=== PATIENT | female | born 1950 | race Caucasian/White ===

== ENCOUNTER → 2017-12-08 | Outpatient (CLI) | payer MEDICARE ==
--- NOTE | 2017-12-09 08:57 | MM ---
Reason for exam: screening (asymptomatic). Last mammogram was performed 1 year and 5 months ago. History: Patient is postmenopausal and is nulliparous. Physical Findings: A clinical breast exam by your physician is recommended on an annual basis and results should be correlated with mammographic findings. MG 3D Screening Mammo W/Cad Bilateral CC and MLO view(s) were taken. Prior study comparison: July 12, 2016, mammogram, performed at [facility]. June 12, 2015, mammogram, performed at [facility]. The breast tissue is heterogeneously dense. This may lower the sensitivity of mammography. There is no discrete abnormality. No significant changes when compared with prior studies. ASSESSMENT: Negative, BI-RAD 1 RECOMMENDATION: Routine screening mammogram of both breasts in 1 year.
== END | disposition home or self-care (01) ==
LOC: RADMAMWWP 07:54
PROVIDERS: ATTEND Family Medicine
DX: Z12.31 Encounter for screening mammogram for malignant neoplasm of breast (principal)
CPT/HCPCS: 77063; 77067

== ENCOUNTER → 2017-12-30 | Outpatient (CLI) | payer MEDICARE ==
--- NOTE | 2017-12-30 22:54 | CONS ---
CONSULTATION This is a 67-year-old female patient, very pleasant, diagnosed having obstructive sleep apnea more than 20 years ago. Her diagnosis was established at [facility] where the patient was initially diagnosed and she was treated. She was able to bring to me studies, which I had the chance to review. The first split night study was done on 11/07/2010 at [facility] in [place], [place]. Based on this study, the patient had severe symptomatic obstructive sleep apnea and her baseline AHI was as high as 75. Subsequently, she was given CPAP therapy and she was titrated successfully to a CPAP pressure of 10 cm of water. Note that her initial diagnosis was established back then, specifically in 2002. The patient uses CPAP for quite some time and subsequently she had a followup CPAP titration performed on 12/06/2010 through the same sleep center and she was titrated to a CPAP pressure of 9 cm of water. On today's evaluation, I checked her CPAP unit and the patient has an older generation [employer] REMstar auto PAP unit, which is set at a minimum pressure of 8 and a maximum pressure of 12. The patient is very compliant with CPAP therapy. She wears at night and she has continued to benefit from the treatment. In fact, she has no complaints and she is in to make sure her treatment is up-to-date and she is asking for CPAP supplies and to be renewed. I checked a CPAP machine. She is averaging around 4 hours and 36 minutes of CPAP use every night. Her CPAP used for more than 4 hours is 66%. No periodic breathing. No leaks around the mask. Her P90 pressure is at 11 cm of water and she is using the Air Fit P10 small size nose mask. Her weight has been stable. She is alert and awake and refreshed during the day. She has an [place] score of 7. She wants to establish herself with us at our sleep center. Asymptomatic as long as she continues to wear her CPAP. PAST MEDICAL HISTORY: 1. Obstructive sleep apnea as discussed above. 2. Hypothyroidism. 3. Hypertension. 4. Hyperlipidemia. PAST SURGICAL HISTORY: Includes total hysterectomy, bilateral cataract surgery, acid reflux, cholecystectomy, bladder suspension surgery, gastric bypass surgery following which she lost approximately 150 pounds and she regained subsequently around 50 pounds and degenerative arthritis. DRUG ALLERGIES: TETRACYCLINE. OUTPATIENT MEDICATION LIST: Includes vitamin D, lisinopril 10 mg p.o. daily, Synthroid 112 mcg p.o. daily, Lipitor 10 mg p.o. daily, omeprazole 20 daily, potassium 20 mEq a day, vitamin C, iron, multivitamin, aspirin and CPAP machine as discussed. SOCIAL HISTORY: The patient is a nonsmoker. No history of alcohol. No history of IV drugs. FAMILY HISTORY: Noncontributory for any form of sleep breathing disorder. REVIEW OF SYSTEMS: A 12-point review of system was done and positive findings are mentioned above in the history of present illness. Specifically, there is no reported insomnia. No nocturia. No grinding of the teeth. No sleepwalking. No dry mouth. No anxiety or panic attacks. No heartburn. No sleep talking. No sleep paralysis. No hallucinations. No cataplexy. PHYSICAL EXAMINATION: BP is 140/65, pulse 76, respirations 16, temp 98.0, saturation 95% on room air. Weight is 255, height is 5 feet 1 inch and neck size 14.5 inches. GENERAL APPEARANCE: Calm, comfortable and in no acute distress. HEAD: Atraumatic, normocephalic. NECK: Short, supple. There is crowding of the posterior pharynx. There is no goiter or neck masses. LUNGS: Clear to auscultation. HEART: Sounds are regular rate and rhythm. Normal S1, S2. No S3. No murmurs. ABDOMEN: Soft, nontender. No organomegaly. EXTREMITIES: No edema. No cyanosis or clubbing at this point. Skin is negative for any wounds or ulceration. IMPRESSION: 1. Severe symptomatic obstructive sleep apnea with an AHI of 60. The patient underwent a successful CPAP titration and treatment over the years. She is currently using a [employer] RespirSplothers CPAP unit, which is set at an APAP mode with a minimum pressure of 8 and a maximum pressure of 12. The patient continued to treat and benefit and be compliant with her CPAP machine. 2. Obesity, post gastric bypass surgery. Current weight is down to 255. 3. Hypersomnia, improved. 4. Hypothyroidism. 5. Hypertension. PLAN: 1. Continue same CPAP pressure settings. 2. Renew the patient's CPAP supply and provides patient Air Fit P10 small size nasal pillows. 3. Continue using the same CPAP machine and ultimately the patient may need an updated machine in a few weeks time. For now the treatment is successful and no need for any adjustment from the sleep standpoint, and the patient will be established herself in our clinic here at the sleep center. MMRUBÉN / CRISTOFERN: [id number] /
== END | disposition home or self-care (01) ==
LOC: SLEEP 13:58
PROVIDERS: ATTEND Internal Medicine Critical Care Medicine
DX: G47.33 Obstructive sleep apnea (adult) (pediatric) (principal); E66.9 Obesity, unspecified; G47.10 Hypersomnia, unspecified; E03.9 Hypothyroidism, unspecified; I10 Essential (primary) hypertension; E78.5 Hyperlipidemia, unspecified; Z88.1 Allergy status to other antibiotic agents; Z98.84 Bariatric surgery status; Z79.899 Other long term (current) drug therapy; Z79.82 Long term (current) use of aspirin
CPT/HCPCS: 99211

== ENCOUNTER 2018-01-07 08:20 | Day surgery (SDC) | payer MEDICARE ==
[2018-01-02 16:18] VITALS: BMI 48.2
--- NOTE | 2018-01-07 07:08 | P.GSHP ---
History of Present Illness H&P Date: 01/07/18 CHIEF COMPLAINT: Colon screen HISTORY OF PRESENT ILLNESS: The patient is a 67-year-old female who presents for colon screen. Lower endoscopy was offered for further evaluation and management. PAST MEDICAL HISTORY: Please see list. PAST SURGICAL HISTORY: Please see list. MEDICATIONS: Please see list. ALLERGIES: Please see list. SOCIAL HISTORY: No illicit drug use FAMILY HISTORY: No reports of Crohn disease or ulcerative colitis. REVIEW OF ORGAN SYSTEMS: CONSTITUTIONAL: No reports of fevers or chills. PHYSICAL EXAM: VITAL SIGNS: Stable GENERAL: Well-developed pleasant in no acute distress. HEENT: No scleral icterus. Extraocular movements grossly intact. Moist buccal mucosa. NECK: Supple without lymphadenopathy. CHEST: Unlabored respirations. Equal bilateral excursions. CARDIOVASCULAR: Regular rate and rhythm. Distal 2+ pulses. ABDOMEN: Soft, nontender, nondistended. MUSCULOSKELETAL: No clubbing, cyanosis, or edema. ASSESSMENT: 1. Colon screen. PLAN: 1. Recommend proceeding with a lower endoscopy Past Medical History Past Medical History: CVA/TIA, GERD/Reflux, Hypertension, Sleep Apnea/CPAP/BIPAP Additional Past Medical History / Comment(s): MITRAL VALVE PROLAPSE, MINOR. TIA 1974, NO RESIDUAL. USES CPAP. History of Any Multi-Drug Resistant Organisms: None Reported Past Surgical History: Bariatric Surgery, Bladder Surgery, Cholecystectomy, Hysterectomy Additional Past Surgical History / Comment(s): GASTRIC BYPASS. SVEN CATARACTS. COLONOSCOPY, EGD. Past Anesthesia/Blood Transfusion Reactions: No Reported Reaction Smoking Status: Never smoker - Past Family History Sister(s) Family Medical History: Cancer Additional Family Medical History / Comment(s): COLON CA Mother Family Medical History: Cancer Medications and Allergies Home Medications Medication Instructions Recorded Confirmed Type Ascorbic Acid [Vitamin C] 1,000 mg PO HS 01/02/18 01/02/18 History Aspirin [Adult Low Dose Aspirin EC] 81 mg PO DAILY 01/02/18 01/02/18 History Atorvastatin [Lipitor] 10 mg PO HS 01/02/18 01/02/18 History Ferrous Sulfate [Feosol] 325 mg PO HS 01/02/18 01/02/18 History Levothyroxine Sodium [Synthroid] 112 mcg PO DAILY 01/02/18 01/02/18 History Lisinopril [Zestril] 10 mg PO DAILY 01/02/18 01/02/18 History Multivitamins, Thera [Multivitamin 1 tab PO BID 01/02/18 01/02/18 History (formulary)] Omeprazole [PriLOSEC] 20 mg PO HS 01/02/18 01/02/18 History Potassium Chloride ER [K-Dur 20] 20 meq PO DAILY 01/02/18 01/02/18 History Vitamin D3 (Unknown Dose) 1 tab PO DAILY 01/02/18 History Allergies Allergy/AdvReac Type Severity Reaction Status Date / Time Tetracyclines Allergy Anaphylaxis Verified 01/02/18 15:56
[~2018-01-07 08:20] MED LIST: LACTATED RINGERS 1,000 ML IV SCH; LIDOCAINE 1% 20 ML VIAL (10MG/ML) FOR IV START INTRADERMA PRN
[2018-01-07 09:03] VITALS: TEMP 97.4
[2018-01-07] MEDS ORDERED: PROPOFOL 10 MG/ML 20 ML VIAL IV ONE (09:44)
[2018-01-07] MEDS ORDERED: LIDOCAINE 1% INJ 10MG/ML (20 ML MDV) ONE (09:44)
--- NOTE | 2018-01-07 10:14 | P.PCN ---
Date of Procedure: 01/07/18 Description of Procedure: PREOPERATIVE DIAGNOSIS: Colonoscopy screening. Family history of colon cancer, sister POSTOPERATIVE DIAGNOSIS: Colonoscopy screening. Family history of colon cancer, sister Diverticulosis, scattered. OPERATION: Colonoscopy to the ileocecal valve and appendiceal orifice. SURGEON: Hanny Harris MD. ANESTHESIA: MAC. INDICATIONS: The patient is a 67-year-old female who presents for colonoscopy screening. Last colonoscopy was 5 years ago. Benefits and risks were described and informed consent was obtained. DESCRIPTION OF PROCEDURE: The patient had undergone Gatorade, MiraLAX and Dulcolax prep. She had been brought into the operating room and laid in the left lateral decubitus position. After adequate intravenous sedation, the rectum was examined with 2% lidocaine jelly. No external hemorrhoids were encountered. The rectal tone was within normal limits. No lesions were palpated in the rectal vault. An Olympus colonoscope was advanced until the ileocecal valve and appendiceal orifice were clearly viewed. The prep was fair with clear visualization of the mucosal folds. The scope was removed with visualization of each mucosal fold. Scattered sigmoid diverticulosis was encountered. No colonic polyps were found. No evidence of focal colitis was found. Retroflexion of the scope demonstrated no internal hemorrhoids without active bleeding or inflammation. The colon was desufflated. The patient had tolerated the procedure well. Withdrawal time was over 6 minutes. FINDINGS: No internal hemorrhoids Scattered diverticulosis. No external prolapsed hemorrhoids. No arteriovenous malformations. No adenomatous polyps. No focal colitis. RECOMMENDATIONS: Lower endoscopy in 5 years, 2022 due to family history Plan - Discharge Summary New Discharge Prescriptions: No Action Potassium Chloride ER [K-Dur 20] 20 meq PO DAILY Multivitamins, Thera [Multivitamin (formulary)] 1 tab PO BID Lisinopril [Zestril] 10 mg PO DAILY Levothyroxine Sodium [Synthroid] 112 mcg PO DAILY Atorvastatin [Lipitor] 10 mg PO HS Ferrous Sulfate [Feosol] 325 mg PO HS Aspirin [Adult Low Dose Aspirin EC] 81 mg PO DAILY Ascorbic Acid [Vitamin C] 1,000 mg PO HS Omeprazole [PriLOSEC] 20 mg PO HS Vitamin D3 (Unknown Dose) 1 tab PO DAILY Discharge Medication List Ascorbic Acid [Vitamin C] 1,000 mg PO HS 01/02/18 [History] Aspirin [Adult Low Dose Aspirin EC] 81 mg PO DAILY 01/02/18 [History] Atorvastatin [Lipitor] 10 mg PO HS 01/02/18 [History] Ferrous Sulfate [Feosol] 325 mg PO HS 01/02/18 [History] Levothyroxine Sodium [Synthroid] 112 mcg PO DAILY 01/02/18 [History] Lisinopril [Zestril] 10 mg PO DAILY 01/02/18 [History] Multivitamins, Thera [Multivitamin (formulary)] 1 tab PO BID 01/02/18 [History] Omeprazole [PriLOSEC] 20 mg PO HS 01/02/18 [History] Potassium Chloride ER [K-Dur 20] 20 meq PO DAILY 01/02/18 [History] Vitamin D3 (Unknown Dose) 1 tab PO DAILY 01/02/18 [History]
[2018-01-07 10:36] VITALS: BP 128/75; PULSE 65; RESP 16
== END 2018-01-07 10:44 | disposition home or self-care (01) ==
LOC: ORWHC2ENDO 08:20
PROVIDERS: ATTEND Surgery Plastic and Reconstructive Surgery
DX: Z12.11 Encounter for screening for malignant neoplasm of colon (principal); Z80.0 Family history of malignant neoplasm of digestive organs
CPT/HCPCS: J2001; J2704; G0105

== ENCOUNTER → 2018-08-07 | Outpatient (CLI) | payer MEDICARE | LOC: LABWHC1 12:35 | PROVIDERS: ATTEND Orthopaedic Surgery | DX: Z01.812 Encounter for preprocedural laboratory examination (principal) | CPT/HCPCS: 87070 ==

== ENCOUNTER → 2018-09-02 | Outpatient (CLI) | payer MEDICARE | LOC: LABWHC1 13:45 | PROVIDERS: ATTEND Family Medicine | DX: E87.5 Hyperkalemia (principal) | CPT/HCPCS: 36415; 84132 ==

== ENCOUNTER 2018-09-07 09:53 | Inpatient (IN) | payer MEDICARE ==
--- NOTE | 2018-09-06 11:59 | HP ---
HISTORY AND PHYSICAL REASON FOR ADMISSION: Surgery 09/07/2018 HISTORY OF PRESENT ILLNESS: Symone Quintero is a 68-year-old patient seen with symptomatic left knee osteoarthritis. Treatment options were discussed. She elected to proceed with left total knee arthroplasty. Consent was obtained. Medical clearance was provided by Dr. Vargas. PAST MEDICAL HISTORY: Hyperlipidemia, hypothyroidism, hypertension, gastroesophageal reflux disease. PAST SURGICAL HISTORY: Cataract surgery, cholecystectomy, gastric bypass, hysterectomy, wrist surgery. DAILY MEDS: Aspirin, atorvastatin, levothyroxine, lisinopril, Prilosec, Flonase. ALLERGIES: TETRACYCLINE. SOCIAL HISTORY: She denies tobacco use. PHYSICAL EXAMINATION: Evaluation of the left knee range of motion is -3 to 4 to 115 degrees. Tenderness medial joint line. Crepitus medial patellofemoral compartments with range of motion. Pain with patellofemoral compression. Ligaments stable. Hip rotation without pain. Distal neurovascular exam intact. RADIOGRAPHS: Radiographs of the left knee revealed severe medial and moderate patellofemoral compartment osteoarthritis. IMPRESSION: 1. Left knee osteoarthritis. 2. Hypertension. 3. Hyperlipidemia. 4. Hypothyroidism. PLAN: Left total knee arthroplasty. Surgery scheduled 09/07/2018. MMODL / IJN: [id number] /
[~2018-09-07 09:53] MED LIST changes: +ACETAMINOPHEN TAB 500 MG TAB PO ONE; +DEXAMETHASONE SOD PHOSPHATE 10 MG/ML 1 ML VIAL IV ONE; +HYDROmorphone 0.5 MG/0.5 ML SYRINGE IVP PRN; -LACTATED RINGERS 1,000 ML IV SCH; -LIDOCAINE 1% 20 ML VIAL (10MG/ML) FOR IV START INTRADERMA PRN; +MELOXICAM 7.5 MG TAB PO ONE; +MIDAZOLAM (PF) 2 MG/2 ML VIAL IV PRN; +ONDANSETRON 4 MG/2 ML VIAL IVP ONE; +TRANEXAMIC ACID 1,000 MG in SODIUM CHLORIDE 0.9% 50 ML IVPB ONE; +VANCOMYCIN 1,750 MG in SODIUM CHLORIDE 0.9% 500 ML 500 ML IVPB ONE
[2018-09-07] MEDS ORDERED: LIDOCAINE 1% 20 ML VIAL (10MG/ML) FOR IV START SQ ONE (10:17)
[2018-09-07] MEDS: LACTATED RINGERS 1,000 ML IV SCH ×2 (10:34→17:24)
[2018-09-07] MEDS ORDERED: TRANEXAMIC ACID 1,000 MG/10 ML VIAL ONE ×2 (12:57)
[2018-09-07] MEDS ORDERED: HYDROmorphone (PF) 1 MG/ML ONE (12:57)
[2018-09-07] MEDS ORDERED: PROPOFOL 10 MG/ML 20 ML VIAL IV ONE (12:57)
[2018-09-07] MEDS ORDERED: MIDAZOLAM 2 MG/2 ML VIAL ONE (12:57)
[2018-09-07] MEDS ORDERED: fentaNYL (PF) 50 MCG/ML 2 ML AMP ONE (12:57)
[2018-09-07] MEDS ORDERED: GLYCOPYRROLATE 0.2 MG/ML 2 ML VIAL ONE (12:57)
[2018-09-07] MEDS ORDERED: NEOSTIGMINE 1 MG/ML 10 ML VIAL ONE (12:57)
[2018-09-07] MEDS ORDERED: LIDOCAINE 1% INJ 10MG/ML (20 ML MDV) ONE (12:57)
[2018-09-07] MEDS ORDERED: ROCURONIUM BROMIDE 10 MG/ML 10 ML VIAL IV ONE (12:57)
[2018-09-07] MEDS ORDERED: SODIUM CHLORIDE 0.9% 100 ML BAG ONE ×2 (12:57)
[2018-09-07] MEDS ORDERED: SUCCINYLCHOLINE CHLORIDE 100 MG/5 ML SYR IV ONE (12:57)
[2018-09-07] MEDS ORDERED: ePHEDrine SULFATE/0.9% NACL/PF 50 MG/5 ML SYRINGE IV ONE (12:57)
[2018-09-07] MEDS ORDERED: ROPIVACAINE 246.25 MG, EPINEPHrine 0.5 MG, KETOROLAC 30 MG, cloNIDine HCL/PF 80 MCG, WA... MISCELLANE ONE ×5 (13:03)
[2018-09-07] MEDS ORDERED: ceFAZolin 3,000 MG in SODIUM CHLORIDE 0.9% IRRIGATIO 3,000 ML IRRIGATION ONE (13:44)
[2018-09-07] MEDS ORDERED: LACTATED RINGERS 1,000 ML IV ONE (14:50)
[2018-09-07] MEDS ORDERED: traMADol 50 MG TAB PO PRN (15:40)
[2018-09-07] MEDS ORDERED: HYDROmorphone 1 MG/ML 1 ML SYRINGE IVP PRN (15:40)
[2018-09-07] MEDS ORDERED: HYDROmorphone 0.5 MG/0.5 ML SYRINGE IVP PRN ×2 (15:40)
[2018-09-07] MEDS ORDERED: ONDANSETRON 4 MG/2 ML VIAL IVP PRN (15:40)
[2018-09-07] MEDS ORDERED: HYDROcodone/APAP 5-325MG 1 EACH TAB PO PRN (15:40)
[2018-09-07] MEDS ORDERED: NALOXONE 0.4 MG/ML 1 ML VIAL IV PRN (15:40)
--- NOTE | 2018-09-07 15:40 | P.OP ---
Date of Procedure: 09/07/18 Preoperative Diagnosis: Left knee osteoarthritis Postoperative Diagnosis: Left knee osteoarthritis Procedure(s) Performed: Left total knee arthroplasty Implants: 1. Microport evolution size 4 left CS/CR cemented femur 2. Microport evolution size 4 cemented tibial baseplate 3. Microport to evolution size 3/4 14 mm MP polyethylene tibial insert 4. Microport advance 35 mm all polyethylene cemented patella Anesthesia: GETA, local Surgeon: Trey Baron Vacuum Forming Machine Operator #1: Quinn Espinoza Estimated Blood Loss (ml): 75 Pathology: other (Bone) Condition: stable Disposition: PACU Indications for Procedure: 68-year-old patient seen with symptomatic left knee osteoarthritis. After treatment options were discussed, she elected to proceed with total knee arthroplasty Operative Findings: See description of procedure Description of Procedure: Patient was taken to the operative suite. Patient underwent a general anesthetic by the department of anesthesia. Patient was given preoperative IV intake antibiotics and TXA. A well-padded tourniquet was placed about the left lower extremity. The lower extremity was then prepped and draped in the normal sterile orthopedic fashion. The extremity was elevated, a tourniquet was insufflated to 300. A standard anterior incision was made sharply through skin. Dissection was taken down through the subcutaneous soft tissues down to the extensor mechanism. A medial arthrotomy was performed, patella was everted and knee was flexed. There was advanced osteoarthritis noted. I introduced my distal intramedullary femoral drill. I then introduced the distal femoral cutting jig. Shaji VILLALPANDO secured the cutting jig with 2 pins. I held retractors in position while Shaji VILLALPANDO performed the distal femoral resection through the guide area we now removed her distal femoral cutting guide. We now placed our 4-in-1 femoral cutting block and positioned and it was secured with 2 pins by Shaji VILLALPANDO while I held the block in position. The distal femoral finishing was now completed. A proximal tibial cutting guide was positioned. I held the guide in the appropriate position with both hands well Shaji VILLALPANDO inserted stabilizing pins into the guide. Proximal tibial cut was made. We now placed a trial femoral component into position, along with an appropriate size tibial tray and insert. We now took the knee through range of motion and had full extension good flexion and good overall soft tissue balance noted. The patella was everted and stabilized with 2 towel clips held by Shaji VILLALPANDO while I performed a flush with patellar quad tendon utilizing a fresh sawblade. We templated the patella, appropriate drill holes were made. An appropriate trial patella was positioned, knee was taken through full range of motion with the patella tracking very nicely. The trial patella was removed. Drill holes were made through the femoral component. All trial components were removed after marking off the appropriate rotation of the tibia. At this point it appeared that her tourniquet had deflated. We took the tourniquet down and reinsufflated. We still appeared to have bleeding from the resected bone sites. We decided to move out with the procedure at this point. Retractors were now positioned along the proximal tibia. An appropriate keel punch was made with the appropriate size tibial guide by myself on Shaji VILLALPANDO assisted by holding retractors. At this point appropriate size implants were chosen and opened. The joint was irrigated copiously with pulse lavage mechanical irrigation. The posterior capsule was infiltrated with local analgesic. The wound was irrigated with pulse lavage mechanical irrigation. We mixed antibiotic methylmethacrylate. We placed the knee into flexion. We placed multiple retractors assisted by Shaji VILLALPANDO to expose the proximal tibia. I now insufflated the tourniquet to 400 to assist with cement fixation. Once the methyl methacrylate was ready, the tibial component was cemented into place removing any excess methylmethacrylate form by both myself and Shaji VILLALPANDO. The femoral component was cemented into place removing the removing any excess methylmethacrylate performed by both myself and Shaji VILLALPANDO. We then inserted the appropriate size polyethylene tibial insert. We made sure that it was locked into position. We took the knee into full extension, and then back in a flexion making sure we had removed any excess methylmethacrylate. The patellar component was then cemented down and secured with clamp. Excess methylmethacrylate removed. We kept the knee in full extension, patellar clamp in position until methylmethacrylate had hardened. Once it had hardened the patellar clamp was removed. The knee was taken through full range of motion. The patella tracked nicely. There appeared be some laxity along the medial side. I now removed the 12 mm polyethylene tibial insert and trialed a 14 mm. I had better stability overall. I now chose the 14 mm polyethylene tibial insert and introduced and clicked into position. It was stable. I took the knee through range of motion and patella tracked well. There was good stability. There was good soft tissue balancing. The tourniquet was now released. Additional hemostasis was achieved via electrocautery. A second gram of TXA was given. The wound again was irrigated with pulse lavage mechanical irrigation. The superficial soft tissues were infiltrated local analgesic. The extensor mechanism was repaired with Vicryl. We checked the repair with range of motion and it was stable. The subcutaneous soft tissues were repaired with Vicryl in layers. The skin was approximated with skin armani. Sterile dressings were applied followed by loose web roll and Zeeshan bandage. The patient was transferred to a bed, and taken to recovery in stable and satisfactory condition. Shaji VILLALPANDO assisted with this complex procedure.
[2018-09-07 17:16] VITALS: BMI 46.7
[2018-09-07] MEDS: HYDROcodone/APAP 5-325MG 1 EACH TAB PO PRN ×2 (18:34→23:54)
--- NOTE | 2018-09-07 18:52 | XR ---
EXAMINATION TYPE: XR knee limited LT DATE OF EXAM: 09/07/2018 CLINICAL HISTORY: Left knee pain and arthritis status post total knee replacement. TECHNIQUE: Portable AP and crosstable lateral views of the left knee are obtained immediately postop eratively. COMPARISON: None FINDINGS: Metallic hardware from total left knee arthroplasty is seen and appears satisfactory in al ignment and position. There is evidence of recent surgery with diffuse subcutaneous gas , vertical s kin armani, and anterior soft tissue swelling noted. [place] osseous structures are somewhat deminera lized. IMPRESSION: METALLIC HARDWARE FROM TOTAL LEFT KNEE ARTHROPLASTY IS SATISFACTORY IN ALIGNMENT.
[2018-09-07] MEDS ORDERED: SENNOSIDES-DOCUSATE SODIUM 1 EACH TAB PO SCH (21:00)
[2018-09-07] MEDS ORDERED: PANTOPRAZOLE 40 MG TABLET PO SCH (21:45)
[2018-09-07] MEDS ORDERED: ATORVASTATIN 10 MG TAB PO SCH (21:45)
[2018-09-07] MEDS: ENOXAPARIN 30 MG/0.3 ML SYRINGE SQ SCH (22:39)
[2018-09-07] MEDS: MULTIVITAMINS, THERA 1 EACH TAB PO SCH (23:05)
[2018-09-07] MEDS: LISINOPRIL 10 MG TAB PO SCH (23:05)
[2018-09-07] MEDS: buPROPion SR 150 MG TABLET.ER PO SCH (23:56)
[2018-09-08] MEDS: LACTATED RINGERS 1,000 ML IV SCH ×3 (02:00→10:53)
[2018-09-08] MEDS: HYDROcodone/APAP 5-325MG 1 EACH TAB PO PRN ×2 (05:54→11:59)
[2018-09-08] MEDS ORDERED: LEVOTHYROXINE 112 MCG TAB PO SCH (06:30)
[2018-09-08 07:45] VITALS: BP 94/46; PULSE 64; RESP 14; TEMP 97.5
[2018-09-08 08:10] LABS: Basophils % (A) 0 %; Eosinophils # (A) 0.1 k/uL (0-0.7); Eosinophils % (A) 1 %; HCT 34.7 % (34.0-46.0); HGB 11.1 gm/dL (11.4-16.0); Lymphocytes # (A) 0.8 k/uL (1.0-4.8); Lymphocytes % (A) 12 %; MCH 30.9 pg (25.0-35.0); MCHC 31.9 g/dL (31.0-37.0); MCV 96.9 fL (80.0-100.0); Mean Platelet Volume 7.2; Monocytes # (A) 0.4 k/uL (0-1.0); Monocytes % (A) 7 %; Neutrophils % (A) 78 %; Platelet Count 158 k/uL (150-450); RBC 3.58 m/uL (3.80-5.40); RDW 13.2 % (11.5-15.5); WBC 6.3 k/uL (3.8-10.6)
[2018-09-08] MEDS: LISINOPRIL 10 MG TAB PO SCH (08:44)
[2018-09-08] MEDS: buPROPion SR 150 MG TABLET.ER PO SCH (08:47)
[2018-09-08] MEDS: MULTIVITAMINS, THERA 1 EACH TAB PO SCH (08:47)
[2018-09-08] MEDS: ENOXAPARIN 30 MG/0.3 ML SYRINGE SQ SCH (08:47)
[2018-09-08] MEDS ORDERED: MELOXICAM 7.5 MG TAB PO SCH (09:00)
--- NOTE | 2018-09-08 13:21 | P.PN ---
Subjective Progress Note Date: 09/08/18 Principal diagnosis: Status post left total knee arthroplasty Patient evaluated today bedside, she is resting comfortably. She's work well with physical therapy. She denies any chest pain or shortness of breath. She denies any fevers or chills. Objective - Vital Signs Vital signs: Vital Signs Temp 97.5 F L 09/08/18 07:34 Pulse 64 09/08/18 07:34 Resp 14 09/08/18 07:34 BP 94/46 09/08/18 07:34 Pulse Ox 97 09/08/18 07:34 Intake & Output 09/07/18 09/08/18 09/08/18 18:59 06:59 18:59 Intake Total 1901 2670 118 Output Total 75 Balance 1826 2670 118 Intake: IV 1901 Intake, IV Titration 1000 Amount Lactated Ringers 1,000 ml 1000 @ 100 mls/hr IV .Q10H MISTY Rx#:[id number] Oral 1670 118 Output: Estimated Blood Loss 75 Other: Voiding Method Toilet Toilet # Voids 1 - Exam Left lower extremity: Incision is clean, dry, and intact. The exofin fusion tape is in good condition. There is minimal soft tissue swelling and ecchymosis surrounding the medial and lateral aspects of the incision. Calf is soft, no tenderness with palpation. Plantar flexion, dorsiflexion, EHL, FHL are intact. Sensory exam to light touch throughout the extremity is intact, dorsal pedis pulses 2+. - Labs CBC & Chem 7: 09/08/18 06:50 09/07/18 10:21 Labs: Abnormal Lab Results - Last 24 Hours (Table) 09/08/18 Range/Units 06:50 RBC 3.58 L (3.80-5.40) m/uL Hgb 11.1 L (11.4-16.0) gm/dL Lymphocytes # 0.8 L (1.0-4.8) k/uL Assessment and Plan Plan: Assessment: Postop day 1 status post left total knee arthroplasty Plan: Pain control, plan for discharge on oral medication GI and DVT prophylaxis, Eliquis 2.5mg bid Wound care instructions discussed Physical therapy and nursing after discharge Medical recommendations discharge planning: Plan for discharge home today Time with Patient: Less than 30
--- NOTE | 2018-09-08 13:28 | P.DS ---
Providers Date of admission: 09/07/18 09:53 Expected date of discharge: 09/08/18 Attending physician: Trey Baron Consults: 09/07/18 15:40 Consult Physician Routine Consulting Provider: Philippe Vargas Reason/Comments: Medical management Do you want consulting provider notified?: Yes Primary care physician: Philippe Vargas [facility] Course: Date of admission: 09/07/2018 Date of discharge: 09/08/2018 Admission diagnosis: Status post left total knee arthroplasty Discharge diagnosis: Same Attending physician: Dr. Baron Surgical procedures: Left total knee arthroplasty Brief history: Patient is a 68-year-old female with a history of with progressive primary left knee osteoarthritis. At this point patient has failed conservative treatment measures and has opted to proceed with a elective left total knee arthroplasty. Hospital course: Details of patient's surgery can be found in operative report. Patient tolerated the procedure well and was subsequently transported to orthopedic floor. Patient's orthopeidc and medical care was provided daily. Patient had daily laboratory tests performed for evaluation of overall blood counts. Patient had daily physical therapy to include strengthening range of motion as well as education with walker ambulation. Patient had daily CPM usage as part of their physical therapy program. Patient was treated with Lovenox for their postoperative DVT prophylaxis during their inpatient stay. Patient was noted to have a relatively uneventful postoperative course. Patient reported satisfactory pain control with oral pain medications by postoperative day 0. Patient showed satisfactory progress with physical therapy. Patient moved steadily through the program and had no difficulty meeting the goals by postoperative day 1. Given patient's otherwise satisfactory course and having met physical therapy goals, plan is to discharge patient home on postoperative day 1. Discharge condition/disposition: Patient will be discharged home in stable condition. Discharge medications: Instructions are given on resumption of patient's normal daily medications per primary care recommendation, in addition patient will be prescribed [place] 7.5 mg/325 mg, Eliquis 2.5mg, Tramadol 50mg. Discharge instructions: 1. Wound care and infection precautions, keep incision dry and covered while showering], no lotions, creams, moisturizers. No soaking, tubs, pools, hottubs. Do not scrub over the incision. 2. Weight-bear [as tolerated] with walker / cane until follow-up. 3. Ice and elevate when necessary. Do not exceed 20 minutes per hour with ice pack. 4. Utilize compression sleeve until seen at first follow up appointment. 5. Visiting nursing care. 6. Home physical therapy [including home CPM]. 7. Pain meds and anticoagulants per prescription. 8. Pain medication has potential to cause constipation. Increase oral fluid and fiber intake. Contact primary care provider if you have not had a bowel movement within 48 hours after discharge 9. No anti-inflammatory medication until discussed at first post operative visit, this including Motrin, Aleve, Mobic, Diclofenac. 10. Follow up in office at 2 weeks postop with Shaji Espinoza PA-C 11. Follow up with your primary care doctor 7-10 days after discharge. 12. Contact [facility] with any questions, . Procedures: Left total knee arthroplasty Patient Condition at Discharge: Good Plan - Discharge Summary Discharge Rx Participant: Yes New Discharge Prescriptions: New Apixaban [Eliquis] 2.5 mg PO BID #30 tab HYDROcodone/APAP 7.5-325MG [[place] 7.5] 1 - 2 each PO Q6HR PRN #40 tab PRN Reason: Pain traMADol HCl [Ultram] 50 mg PO Q6H PRN #28 tab PRN Reason: Pain No Action Potassium Chloride ER [K-Dur 20] 20 meq PO DAILY Multivitamins, Thera [Multivitamin (formulary)] 1 tab PO BID Lisinopril [Zestril] 10 mg PO BID Atorvastatin [Lipitor] 10 mg PO HS Ferrous Sulfate [Feosol] 325 mg PO DAILY Aspirin [Adult Low Dose Aspirin EC] 81 mg PO DAILY Ascorbic Acid [Vitamin C] 1,000 mg PO HS Omeprazole [PriLOSEC] 20 mg PO HS Cholecalciferol [Vitamin D3] 3,000 unit PO DAILY Krill Oil 500 mg PO DAILY Fluticasone Nasal [place] [Flonase Nasal [place]] 2 spr EA NOSTRIL DAILY buPROPion HCL [Wellbutrin SR] 150 mg PO BID Levothyroxine Sodium 112 mcg PO DAILY Discharge Medication List Ascorbic Acid [Vitamin C] 1,000 mg PO HS 01/02/18 [History] Aspirin [Adult Low Dose Aspirin EC] 81 mg PO DAILY 01/02/18 [History] Atorvastatin [Lipitor] 10 mg PO HS 01/02/18 [History] Cholecalciferol [Vitamin D3] 3,000 unit PO DAILY 01/02/18 [History] Ferrous Sulfate [Feosol] 325 mg PO DAILY 01/02/18 [History] Lisinopril [Zestril] 10 mg PO BID 01/02/18 [History] Multivitamins, Thera [Multivitamin (formulary)] 1 tab PO BID 01/02/18 [History] Omeprazole [PriLOSEC] 20 mg PO HS 01/02/18 [History] Potassium Chloride ER [K-Dur 20] 20 meq PO DAILY 01/02/18 [History] Fluticasone Nasal [place] [Flonase Nasal [place]] 2 spr EA NOSTRIL DAILY 09/01/18 [ History] Krill Oil 500 mg PO DAILY 09/01/18 [History] buPROPion HCL [Wellbutrin SR] 150 mg PO BID 09/01/18 [History] Levothyroxine Sodium 112 mcg PO DAILY 09/07/18 [History] Apixaban [Eliquis] 2.5 mg PO BID #30 tab 09/08/18 [Rx] HYDROcodone/APAP 7.5-325MG [[place] 7.5] 1 - 2 each PO Q6HR PRN #40 tab 09/08/18 [ Rx] traMADol HCl [Ultram] 50 mg PO Q6H PRN #28 tab 09/08/18 [Rx] Follow up Appointment(s)/Referral(s): [facility], [NON-STAFF] - As Needed [facility] [NON-STAFF] - As Needed (walker) Quinn Espinoza PAC [PHYSICIAN MAINTENANCE ASSOCIATE] - 09/23/18 2:30 pm Activity/Diet/Wound Care/Special Instructions: Orthopedic Discharge Instructions: 1. Wound care and infection precautions, keep incision dry and covered while showering, no lotions, creams, moisturizers. No soaking, pools, hot tubs. Do not scrub over incision. 2. Weight-bear as tolerated with walker / cane until follow-up. 3. Ice and elevate when necessary. Do not exceed 20 minutes per hour with ice pack. 4. Utilize compression sleeve until seen at first follow up appointment. 5. Pain meds and anticoagulants per prescription. 6. Pain medication has potential to cause constipation. Increase oral fluid and fiber intake. Contact primary care provider if you have not had a bowel movement within 48 hours after discharge. 7. No anti-inflammatory medication until discussed at first post operative visit, this including Motrin, Aleve, Mobic, Diclofenac. 8. Follow up in office at 2 weeks postop with Shaji Espinoza PA-C 9. Follow up with your primary care doctor 7-10 days after discharge. 10. Contact [facility] with any questions, . Discharge Disposition: HOME WITH HOME HEALTH SERVICES
--- NOTE | 2018-09-09 01:10 | CONS ---
CONSULTATION DATE OF CONSULTATION: 09/08/2018 REASON FOR CONSULTATION: Medical management requested by Dr. Baron. CONSULTATION: This is a pleasant 68-year-old patient of Dr. Philippe Vargas. Chronic stable medical conditions include GERD, hypertension, obstructive sleep apnea uses CPAP machine, depression, hypothyroid, hyperlipidemia. The patient has had TIA x3 for which she takes aspirin. The patient has undergone left total knee arthroplasty. Pain is controlled. Did work with therapy. No nausea, vomiting. No chest pain. Did tolerate a meal. Overall feeling better. REVIEW OF SYSTEMS: CONSTITUTIONAL: None. HEENT: None. RESPIRATORY: None. CARDIOVASCULAR: None. MUSCULOSKELETAL: Arthritic pain in joints. DERMATOLOGICAL, HEMATOLOGIC, LYMPHATIC: None. PSYCHIATRY: Depression. Controlled. NEUROLOGICAL: None. PAST MEDICAL HISTORY: TIA x3, GERD, hypertension, obstructive sleep apnea uses CPAP, depression, hypothyroid, hyperlipidemia. PAST SURGICAL HISTORY: Bariatric surgery bladder surgery, cholecystectomy, hysterectomy, gastric bypass, bilateral cataracts. PSYCH HISTORY: Depression. SOCIAL HISTORY: Does not smoke. No significant alcohol intake. Lives by herself. FAMILY HISTORY: Colon cancer. HOME MEDICATIONS: 1. Wellbutrin SR 150 mg b.i.d. 2. Potassium 20 mEq a day. 3. Prilosec 20 mg q.h.s. 4. Multivitamin 1 tablet p.o. b.i.d. 5. Lisinopril 10 mg b.i.d. 6. Levothyroxine 112 mcg a day. 7. Krill oil. 8. Flonase 2 sprays each nostril daily. 9. Iron 325 p.o. daily. 10.Vitamin D3 3000 units p.o. daily. 11.Lipitor 10 mg q.h.s. 12.Aspirin 81 mg a day. 13.Vitamin C 3000 mg q.h.s. 14.Ultram 50 mg p.o. q.6. 15.Bourg after surgery. ALLERGIES: TETRACYCLINE. PHYSICAL EXAMINATION: VITAL SIGNS: Temperature 97.5, pulse 64, respiratory rate 40, blood pressure 92/46, pulse ox 97% on room air. GENERAL APPEARANCE: Well built. BMI 45.7 sitting up comfortable. EYES: Pupils equal. Conjunctivae normal. HEENT external appearance of nose and ears normal. Oral cavity normal. NECK JVD not raised. Mass not palpable. RESPIRATORY effort normal. LUNGS are clear. CARDIOVASCULAR: 1st and 2nd sounds normal. No edema. ABDOMEN: Soft, nontender. Liver and spleen not palpable. LYMPHATICS: No lymph nodes palpable in the neck and axilla. PSYCHIATRY: Alert and oriented x3. Mood and affect normal. NEUROLOGICAL: Pupils equal. Cranial nerves grossly intact. Power and sensation grossly intact. EXTREMITIES: Left knee in a dressing. INVESTIGATIONS: White count 6.3, hemoglobin 11.1. ASSESSMENT: 1. Left total knee arthroplasty. 2. Primary osteoarthritis. 3. Gastroesophageal reflux disease. 4. Essential hypertension. 5. Obstructive sleep apnea uses CPAP machine. 6. Depression, not otherwise specified. 7. Hypothyroid. 8. Hyperlipidemia. PLAN: Home medications are resumed. The patient is on Eliquis for DVT prophylaxis per Dr. Baron. Care was discussed with the patient. Patient should follow up with Dr. Vargas upon discharge. Questions were answered. Thank you Dr. Baron. MMBENYL / CRISTOFERN: [id number] /
== END 2018-09-08 15:20 | disposition home health service (06) | DRG 470 ==
LOC: 2ORMAIN 09:53 → 4SSUR 16:35
PROVIDERS: ADMIT Orthopaedic Surgery; ATTEND Orthopaedic Surgery
PROC: 5A09457 Assistance with Respiratory Ventilation, 24-96 Consecutive Hours, Continuous Positive Airway Pressure (ICD-10-PCS; 2018-09-07)
PROC: 0SRD0J9 Replacement of Left Knee Joint with Synthetic Substitute, Cemented, Open Approach (ICD-10-PCS; principal; 2018-09-07 13:10)
DX: M17.12 Unilateral primary osteoarthritis, left knee (principal); Z68.42 Body mass index [BMI] 45.0-49.9, adult; K90.9 Intestinal malabsorption, unspecified; E66.9 Obesity, unspecified; E78.5 Hyperlipidemia, unspecified; E03.9 Hypothyroidism, unspecified; I34.1 Nonrheumatic mitral (valve) prolapse; I10 Essential (primary) hypertension; G47.33 Obstructive sleep apnea (adult) (pediatric); K21.9 Gastro-esophageal reflux disease without esophagitis; F32.9 Major depressive disorder, single episode, unspecified; Z99.89 Dependence on other enabling machines and devices; Z98.84 Bariatric surgery status; Z90.49 Acquired absence of other specified parts of digestive tract; Z88.1 Allergy status to other antibiotic agents; Z90.710 Acquired absence of both cervix and uterus; Z88.8 Allergy status to other drugs, medicaments and biological substances; Z86.73 Personal history of transient ischemic attack (TIA), and cerebral infarction without residual deficits; Z79.82 Long term (current) use of aspirin; Z79.890 Hormone replacement therapy; Z79.899 Other long term (current) drug therapy; Z98.42 Cataract extraction status, left eye; Z98.41 Cataract extraction status, right eye; Z80.0 Family history of malignant neoplasm of digestive organs
CPT/HCPCS: 84132; 85025; 88300

== ENCOUNTER → 2018-12-31 | Outpatient (CLI) | payer MEDICARE ==
--- NOTE | 2018-12-31 13:43 | MM ---
Reason for exam: screening (asymptomatic). Last mammogram was performed 1 year and 1 month ago. History: Patient is postmenopausal and is nulliparous. Physical Findings: A clinical breast exam by your physician is recommended on an annual basis and results should be correlated with mammographic findings. MG 3D Screening Mammo W/Cad Bilateral CC and MLO view(s) were taken. Prior study comparison: December 08, 2017, bilateral MG 3d screening mammo w/cad. July 12, 2016, mammogram, performed at [place]. There are scattered fibroglandular densities. Left upper outer quadrant 3mm group of calcifications are slightly increasing. ASSESSMENT: Incomplete: need additional imaging evaluation, BI-RAD 0 RECOMMENDATION: Special view mammogram of the left breast. [facility] will attempt to contact patient to return for supplemental views.
== END | disposition home or self-care (01) ==
LOC: RADMAMWWP 07:58
PROVIDERS: ATTEND Family Medicine
DX: Z12.31 Encounter for screening mammogram for malignant neoplasm of breast (principal)
CPT/HCPCS: 77063; 77067

== ENCOUNTER → 2019-01-07 | Outpatient (CLI) | payer MEDICARE ==
--- NOTE | 2019-01-07 10:30 | MM ---
Reason for exam: additional evaluation requested from abnormal screening. Last mammogram was performed less than 1 month ago. History: Patient is postmenopausal and is nulliparous. Physical Findings: Nurse did not find any significant physical abnormalities on exam. MG Work Up Mamm w CAD LT CC with magnification, LM with magnification, and LM view(s) were taken of the left breast. Prior study comparison: December 31, 2018, bilateral MG 3d screening mammo w/cad. December 08, 2017, bilateral MG 3d screening mammo w/cad. There are scattered fibroglandular densities. Finding: There are fine heterogeneous, grouped/clustered calcifications in the lower outer quadrant, middle position of the left breast 11cm from the nipple. New finding since December 31, 2018 and December 08, 2017. These results were verbally communicated with the patient and result sheet given to the patient on 01/07/19. ASSESSMENT: Suspicious, BI-RAD 4 RECOMMENDATION: Stereotactic core biopsy of the left breast. Called Dr. Vargas with mammographic findings and has scheduled an appointment for the patient for 01/21/19 at 8:[address] Conner. Biopsy scheduled for 01/28/19 at 8:00. PRELIMINARY REPORT CALLED AND FAXED TO DR. CONNER ON 01/07/19.
== END | disposition home or self-care (01) ==
LOC: RADMAMWWP 08:53
PROVIDERS: ATTEND Family Medicine
DX: R92.8 Other abnormal and inconclusive findings on diagnostic imaging of breast (principal)
CPT/HCPCS: 77065

== ENCOUNTER 2019-01-18 11:02 | Day surgery (SDC) | payer MEDICARE ==
[2019-01-13 09:51] VITALS: BMI 44.8
[~2019-01-18 11:02] MED LIST changes: -ACETAMINOPHEN TAB 500 MG TAB PO ONE; +LACTATED RINGERS 1,000 ML IV SCH; -MELOXICAM 7.5 MG TAB PO ONE; -MIDAZOLAM (PF) 2 MG/2 ML VIAL IV PRN; +MIDAZOLAM 2 MG/2 ML VIAL IV PRN; -TRANEXAMIC ACID 1,000 MG in SODIUM CHLORIDE 0.9% 50 ML IVPB ONE; -VANCOMYCIN 1,750 MG in SODIUM CHLORIDE 0.9% 500 ML 500 ML IVPB ONE; +ceFAZolin IN SWFI 2 GM/20 ML SYRINGE IVP ONE
[2019-01-18] MEDS ORDERED: FAMOTIDINE 20 MG/2 ML VIAL IV ONE (11:56)
[2019-01-18] MEDS ORDERED: LIDOCAINE 1% 20 ML VIAL (10MG/ML) FOR IV START INTRADERMA ONE (11:56)
--- NOTE | 2019-01-18 12:39 | P.HPOR ---
History of Present Illness H&P Date: 01/18/19 Chief Complaint: Left knee stiffness 68-year-old patient seen with persistent left knee stiffness/adhesions after previously having undergone total knee arthroplasty. After we discussed treatment options she elected to proceed with manipulation under anesthesia left knee with steroid injection. Review of Systems Constitutional: Reports as per HPI Past Medical History Past Medical History: CVA/TIA, GERD/Reflux, Hypertension, Sleep Apnea/CPAP/BIPAP Additional Past Medical History / Comment(s): MITRAL VALVE PROLAPSE, TIA 1973-NO RESIDUAL. USES CPAP. History of Any Multi-Drug Resistant Organisms: None Reported Past Surgical History: Bariatric Surgery, Bladder Surgery, Cholecystectomy, Hysterectomy Additional Past Surgical History / Comment(s): GASTRIC BYPASS. SVEN CATARACTS. COLONOSCOPY, EGD. Past Anesthesia/Blood Transfusion Reactions: No Reported Reaction Additional Past Anesthesia/Blood Transfusion Reaction / Comment(s): no hx blood transfusion Smoking Status: Never smoker - Past Family History Sister(s) Family Medical History: Cancer Additional Family Medical History / Comment(s): COLON CA Mother Family Medical History: Cancer Medications and Allergies Home Medications Medication Instructions Recorded Confirmed Type Ascorbic Acid [Vitamin C] 1,000 mg PO HS 01/02/18 01/18/19 History Aspirin [Adult Low Dose Aspirin EC] 81 mg PO DAILY 01/02/18 01/18/19 History Atorvastatin [Lipitor] 10 mg PO HS 01/02/18 01/18/19 History Cholecalciferol [Vitamin D3] 3,000 unit PO DAILY 01/02/18 01/18/19 History Ferrous Sulfate [Feosol] 325 mg PO DAILY 01/02/18 01/18/19 History Lisinopril [Zestril] 10 mg PO HS 01/02/18 01/18/19 History Multivitamins, Thera [Multivitamin 1 tab PO BID 01/02/18 01/18/19 History (formulary)] Potassium Chloride ER [K-Dur 20] 20 meq PO DAILY 01/02/18 01/18/19 History Fluticasone Nasal [place] [Flonase 2 spr EA NOSTRIL DAILY 09/01/18 01/18/19 History Nasal [place]] Krill Oil 500 mg PO DAILY 09/01/18 01/18/19 History buPROPion HCL [Wellbutrin SR] 150 mg PO BID 09/01/18 01/18/19 History Levothyroxine Sodium 112 mcg PO QAM 09/07/18 01/18/19 History Allergies Allergy/AdvReac Type Severity Reaction Status Date / Time Tetracyclines Allergy Anaphylaxis Verified 01/18/19 11:25 Physical Examination Osteopathic Statement: *. No significant issues noted on an osteopathic structural exam other than those noted in the History and Physical/Consult. Anterior incision well-healed. Range of motion is -6-100. Ligaments are stable. Distal neurovascular exam is intact. Assessment and Plan Assessment: Left knee adhesions/stiffness Plan: Manipulation under anesthesia left knee with steroid injection Time with Patient: Less than 30
[2019-01-18] MEDS ORDERED: PROPOFOL 10 MG/ML 20 ML VIAL IV ONE (12:51)
[2019-01-18] MEDS ORDERED: MIDAZOLAM 2 MG/2 ML VIAL ONE (12:51)
[2019-01-18] MEDS ORDERED: fentaNYL (PF) 50 MCG/ML 2 ML AMP ONE (12:51)
[2019-01-18] MEDS ORDERED: BUPIVACAIN-EPI 0.25%-1:200,000 30 ML VIAL INTRAARTIC ONE (12:58)
[2019-01-18] MEDS ORDERED: methylPREDNISolone ACETATE 80 MG/ML 1 ML VIAL INTRAARTIC ONE (12:58)
--- NOTE | 2019-01-18 13:01 | P.OP ---
Date of Procedure: 01/18/19 Preoperative Diagnosis: Left knee adhesions Postoperative Diagnosis: Left knee adhesions Procedure(s) Performed: Manipulation under anesthesia left knee with steroid injection Anesthesia: MAC, local Surgeon: Trey Baron Estimated Blood Loss (ml): 0 Pathology: none sent Condition: stable Disposition: PACU Indications for Procedure: 68-year-old patient seen with persistent left knee adhesions after previously having undergone total knee arthroplasty. After we discussed treatment options, she elected to proceed with the patient under anesthesia with steroid injection. Operative Findings: see description of procedure Description of Procedure: Patient was taken to a monitored anesthesia area. Patient received preoperative IV antibiotics. The patient underwent IV sedation by the department of anesthesia. When sufficient anesthesia was noted I performed a manipulation of the left knee achieving full extension and 130 of flexion with audible tearing of the adhesions. The superior lateral aspect of the knee was now prepped and draped in the normal sterile orthopedic fashion. I injected a solution of 1 mL Depo-Medrol and 3 mL quarter percent Marcaine with epinephrine. A placed a sterile Band-Aid at the injection site. I took the knee through range of motion. The patient was awakened having tolerated the procedure well.
[2019-01-18 13:18] VITALS: TEMP 98
[2019-01-18] MEDS ORDERED: KETOROLAC 30 MG/ML 1 ML VIAL IVP ONE (13:21)
[2019-01-18 14:12] VITALS: BP 141/84; PULSE 69; RESP 17
== END 2019-01-18 14:25 | disposition home or self-care (01) ==
LOC: OR 11:02
PROVIDERS: ATTEND Orthopaedic Surgery
DX: M23.8X2 Other internal derangements of left knee (principal); Z96.652 Presence of left artificial knee joint; G47.33 Obstructive sleep apnea (adult) (pediatric); Z99.89 Dependence on other enabling machines and devices; M19.90 Unspecified osteoarthritis, unspecified site; K90.9 Intestinal malabsorption, unspecified; I10 Essential (primary) hypertension; E78.5 Hyperlipidemia, unspecified; I34.1 Nonrheumatic mitral (valve) prolapse; E04.1 Nontoxic single thyroid nodule; E03.9 Hypothyroidism, unspecified; K21.9 Gastro-esophageal reflux disease without esophagitis; F39 Unspecified mood [affective] disorder; E66.01 Morbid (severe) obesity due to excess calories; Z68.41 Body mass index [BMI] 40.0-44.9, adult; G47.00 Insomnia, unspecified; Z86.73 Personal history of transient ischemic attack (TIA), and cerebral infarction without residual deficits; Z98.84 Bariatric surgery status; Z83.3 Family history of diabetes mellitus; Z82.49 Family history of ischemic heart disease and other diseases of the circulatory system; Z82.3 Family history of stroke; Z80.0 Family history of malignant neoplasm of digestive organs; Z90.710 Acquired absence of both cervix and uterus; Z90.49 Acquired absence of other specified parts of digestive tract; Z79.82 Long term (current) use of aspirin; Z79.890 Hormone replacement therapy; Z79.899 Other long term (current) drug therapy; Z79.01 Long term (current) use of anticoagulants; Z88.6 Allergy status to analgesic agent; Z88.1 Allergy status to other antibiotic agents
CPT/HCPCS: 27570; 20610; J2250; J1040; J1100; J2405; J3010; J1885; J2704

== ENCOUNTER → 2019-01-21 | Outpatient (CLI) | payer MEDICARE ==
[2019-01-21 08:47] VITALS: BP 132/83; PULSE 70; RESP 20; TEMP 98; BMI 45.5
--- NOTE | 2019-01-21 09:22 | P.GSHP ---
History of Present Illness H&P Date: 01/21/19 Chief Complaint: abnormal mammogram left breast Patient is a 68 year old white female with a complaint of increasing microcalcification in the left breast. She has no history of any trauma to the breast. She has no masses, or pain in the breast. She has never had a breast bi opsy. Family History: sister: of colon cancer at 62 mother: cervical cancer Hormonal History: menarche: 14 G) menopause: 54 BCP: none hormones: none Surgical History: gallbaldder cataract total knee left gastric bypass hysterctomy bladder suspension Medical History: HTN CPAP sleep apnea Gerd Social History: smoke: none alcohol: none drugs: none - Constitutional Constitutional: Denies chills, Denies fever - EENT Comment: cataract bilateral Eyes: denies blurred vision, denies pain Ears: bilateral: decreased hearing (bilateral hearing aids), deny: tinnitus Ears, nose, mouth and throat: Denies headache, Denies sore throat - Breasts Breasts: bilateral: as per HPI - Cardiovascular Comment: mitral valve regurg since Cardiovascular: Reports high blood pressure - Respiratory Comment: sleep apnea - Gastrointestinal Comment: GERD, s/p cholcystectomy - Genitourinary (Female) Comment: bladder suspension Genitourinary: Denies dysuria, Denies hematuria - Menstruation Comment: left her ovaries Menstruation: Reports post hysterectomy - Musculoskeletal Comment: arthritis both hands, left knee replacement - Integumentary Integumentary: Denies pruritus, Denies rash - Neurological Comment: TIA in 1973 last one Neurological: Denies numbness, Denies weakness - Psychiatric Psychiatric: Reports depression - Endocrine Comment: hypothyroid Endocrine: Denies fatigue, Denies weight change - Hematologic/Lymphatic Comment: baby aspirin - Allergic/Immunologic Allergic/Immunologic: Reports as per HPI, Reports seasonal allergies Past Medical History Past Medical History: CVA/TIA, GERD/Reflux, Hypertension, Sleep Apnea/CPAP/BIPAP Additional Past Medical History / Comment(s): MITRAL VALVE PROLAPSE, MINOR. TIA 1973, NO RESIDUAL. USES CPAP. History of Any Multi-Drug Resistant Organisms: MRSA Date of last positivie culture/infection: 09/2018 MDRO Source:: NASAL SWAB Past Surgical History: Bariatric Surgery, Bladder Surgery, Cholecystectomy, Hysterectomy, Joint Replacement, Orthopedic Surgery Additional Past Surgical History / Comment(s): GASTRIC BYPASS. SVEN CATARACTS. COLONOSCOPY, EGD. TKR left knee Sep 2018 & 01/2019 Past Anesthesia/Blood Transfusion Reactions: No Reported Reaction Additional Past Anesthesia/Blood Transfusion Reaction / Comment(s): no hx blood transfusion Past Psychological History: Depression Smoking Status: Never smoker Past Alcohol Use History: None Reported Past Drug Use History: None Reported - Past Family History Sister(s) Family Medical History: Cancer, Hypertension Additional Family Medical History / Comment(s): COLON CA Mother Family Medical History: Cancer, Diabetes Mellitus, Hypertension Additional Family Medical History / Comment(s): CERVICAL Father Family Medical History: Hypertension Brother(s) Family Medical History: Congestive Heart Failure (CHF), Hypertension Medications and Allergies Home Medications Medication Instructions Recorded Confirmed Type Ascorbic Acid [Vitamin C] 1,000 mg PO HS 01/02/18 01/21/19 History Aspirin [Adult Low Dose Aspirin EC] 81 mg PO QAM 01/02/18 01/21/19 History Atorvastatin [Lipitor] 10 mg PO HS 01/02/18 01/21/19 History Cholecalciferol [Vitamin D3] 3,000 unit PO QAM 01/02/18 01/21/19 History Ferrous Sulfate [Feosol] 325 mg PO HS 01/02/18 01/21/19 History Lisinopril [Zestril] 10 mg PO HS 01/02/18 01/21/19 History Multivitamins, Thera [Multivitamin 1 tab PO BID 01/02/18 01/21/19 History (formulary)] Potassium Chloride ER [K-Dur 20] 20 meq PO AC-LUNCH 01/02/18 01/21/19 History Fluticasone Nasal [place] [Flonase 2 spr EA NOSTRIL HS 09/01/18 01/21/19 History Nasal [place]] Krill Oil 500 mg PO QAM 09/01/18 01/21/19 History buPROPion HCL [Wellbutrin SR] 150 mg PO BID 09/01/18 01/21/19 History Levothyroxine Sodium 112 mcg PO QAM 09/07/18 01/21/19 History HYDROcodone/APAP 5-325MG [[place] 1 tab PO Q6HR PRN 7 Days #12 tab 01/18/19 01/21/19 Rx 5-325] Allergies Allergy/AdvReac Type Severity Reaction Status Date / Time Tetracyclines Allergy Anaphylaxis Verified 01/21/19 08:32 Surgical - Exam Vital Signs Temp Pulse Resp BP Pulse Ox 98.0 F 70 20 132/83 95 01/21/19 08:37 01/21/19 08:37 01/21/19 08:37 01/21/19 08:37 01/21/19 08:37 BMI 45.5 - General obese - Eyes normal ocular movement - ENT hearing aids - Neck no masses, trachea midline - Respiratory normal expansion, normal respiratory effort, clear to percussion, clear to ausc ultation - Cardiovascular Rhythm: regular Heart Sounds: normal: S1, S2 - Abdomen Abdomen: soft, non tender, no guarding, no rigid, no rebound - Integumentary normal turgor - Neurologic no disoriented, no combative - Musculoskeletal normal gait, normal posture - Psychiatric oriented to time, oriented to person, oriented to place, speech is normal, memory intact beast exam: right breast: multiopostional exam no masses, fibrocystic cahnges right axilla: no adenopathy of concern left bresat: multipositional exam no masses, fibrocystic changes left axilla: no adenopathy of concern bilateral fungal infection under breast BRA 44D Results mammogram reports reviewed Assessment and Plan Assessment: Impression: 1. abnormal mammogram 2. bilateral fungal infection under breast 3. fibrocystic breast changes 4. HTN 5. prior TIA 6. arthritis 7. prior cataract surgery 8. depression 9. obesity 10. GERD 11. sleep apnea 12. hypothyroid Risk and benefits of procedure (stero-biopsy)explained to the patient and dhe wishes to proceed. Plan: 1. stero biopsy of hte left breast 2. medical managment of medical problems 3. patient to stop aspirin as per DR. Vargas CC: Dr. Vargas
== END ==
LOC: WWCWWP 08:23
PROVIDERS: ATTEND Surgery
DX: Z53.9 Procedure and treatment not carried out, unspecified reason (principal)

== ENCOUNTER → 2019-01-28 | Day surgery (SDC) | payer MEDICARE ==
[2019-01-28 07:20] VITALS: BMI 45.5
--- NOTE | 2019-01-28 08:35 | P.OP ---
Date of Procedure: 01/28/19 Preoperative Diagnosis: Microcalcifications of concern left breast Postoperative Diagnosis: Same Procedure(s) Performed: Left breast stereotactic core biopsy Anesthesia: local Surgeon: Ana Conner Estimated Blood Loss (ml): 1 Pathology: other (Breast tissue) Condition: stable Disposition: same day Indications for Procedure: Findings a heterogeneous group/clustered calcifications lower outer quadrant of the left breast Operative Findings: Microcalcifications in specimen Description of Procedure: Symone is a 68-year-old white female who was noted to have an area of heterogeneous grouped micro- calcifications in the lower outer quadrant of the left breast. She was recommended to undergo stereotactic core biopsy. Risk and benefits were discussed with the patient and she wished to proceed. The patient was taken to the stereotactic core biopsy room. She was positioned on the [employer]-rad stereotactic table. A singing messenger film was obtained and the area of concern was identified. The approach was CC from below. The lesion was targeted. The breast was prepped using Betadine. 20 mL of 1% lidocaine were used to anesthetize the area of concern. A 9-gauge vacuum-assisted rotating the biopsy needle was used to obtain the specimen. It was driven to the correct coordinates. It was fired. Post fire films were obtained. The needle was noted to be slightly short of the lesion and it was advanced . Initial biopsies were obtained from 1 o clock through 12- to 11 o clock. Radiograph of the specimen did not reveal the calcifications. Therefore circumferential biopsies were obtained. Radiograph of the specimen did reveal the microcalcifications of concern. 18 core biopsies were obtained in total. The area was lavaged. There was no evidence of any active bleeding. A secure annette Top-physical therapy aid was p laced. The patient tolerated the procedure in stable condition. Specimen was sent for pathology Patient will follow-up with Dr. Tinajero.
[2019-01-28 08:38] VITALS: BP 127/84; PULSE 61; RESP 61; TEMP 97.8
--- NOTE | 2019-01-28 10:09 | MM ---
EXAMINATION TYPE: MG stereo VAD BX LT DATE OF EXAM: 01/28/2019 COMPARISON: Mammograms dated 12/31/2018 and 01/07/2019 CLINICAL HISTORY: Prior abnormal mammogram. 4 mm group of calcifications within the left upper outer quadrant for which targeted biopsy was recommended. TECHNIQUE: Stereotactic guided core biopsy of left breast. FINDINGS: The procedure of stereotactic guided core biopsy was explained to the patient. Benefits, a lternatives, and risks were discussed. An informed consent was then obtained. Preprocedural timeout was performed. The [facility] pathway for biopsy was chosen. Shortness pathway was CC from below approach. I perform ed the localization, then surgeon, Dr. Lior Taylor performed the remainder of the procedure. A vacuum assisted biopsy gun was used to obtain multiple core samples. The patient tolerated the procedure well without any immediate complication. The patient was kept in the radiology department for short stay after the procedure and then discharged home in stable condi tion. Targeted calcifications are identified in specimen mammogram. Post biopsy mammogram shows the clip to appear in satisfactory position relative to the targeted area of concern on the preprocedure images. IMPRESSION: SUCCESSFUL, UNCOMPLICATED STEREOTACTIC GUIDED CORE BIOPSY OF A 4 MM GROUP OF CALCIFICATIONS IN THE LE FT UPPER OUTER QUADRANT, FULL PATHOLOGY RESULTS TO FOLLOW.
== END | disposition home or self-care (01) ==
LOC: RADMAMWWP 06:50
PROVIDERS: ATTEND Surgery
DX: N60.12 Diffuse cystic mastopathy of left breast (principal); N62 Hypertrophy of breast; Z88.1 Allergy status to other antibiotic agents
CPT/HCPCS: 88305; 19081; A4648; J2001

== ENCOUNTER → 2019-02-12 | Outpatient (CLI) | payer MEDICARE ==
[2019-02-12 08:43] VITALS: BP 116/75; PULSE 82; RESP 18; TEMP 98.1; BMI 45.7
--- NOTE | 2019-02-12 09:25 | P.PN ---
Subjective Progress Note Date: 02/12/19 Principal diagnosis: Status post stereo biopsy left breast The patient is a 69-year-old white female who is status post left breast stereotactic core biopsy and [id number]. Pathology initially did not show the microcalcifications of concern but additional cuts did reveal microca lcifications. The pathology revealed focal fibroadenomatoid hyperplasia. It was felt that the area of concern was sampled. The recommendation is for a follow-up mammogram of the left breast in 6 months. The patient has no complaints related to the biopsy. The patient was initially seen she had a fungal infection under her breast she was treated with nystatin, she states that this has resolved. Objective - Vital Signs Vital signs: Vital Signs Temp 98.1 F 02/12/19 08:35 Pulse 82 02/12/19 08:35 Resp 18 02/12/19 08:35 BP 116/75 02/12/19 08:35 Pulse Ox 96 02/12/19 08:35 Intake & Output 02/11/19 02/12/19 02/12/19 18:59 06:59 18:59 Weight 113.398 kg - Exam BMI 45.7 - Constitutional General appearance: Present: obese - EENT Eyes: Present: EOMI ENT: Present: hearing grossly normal - Neck Neck: Present: normal ROM - Respiratory Respiratory: bilateral: CTA - Cardiovascular Rhythm: regular Heart sounds: normal: S1, S2 - Integumentary Integumentary Comment(s): Biopsy site clean and dry no evidence of any infection or hematoma Prior fungal infection resolved - Musculoskeletal Musculoskeletal: Present: gait normal - Psychiatric Psychiatric: Present: A&O x's 3, appropriate affect, intact judgment & insight Assessment and Plan Assessment: Impression: 1. Benign stereotactic core biopsy left breast 2. Family history of cancer 3. Hypertension 4. GERD 5. Prior TIA 6. Arthritis 7. Depression 8. Obesity 9. Hypothyroidism 10. Fungal infection beneath her breast resolved with nystatin The results of the biopsy were discussed with the patient. Plan: 1. Repeat left breast mammogram in 6 months time 2. Medical management of medical problems Cc: Dr. Vargas
== END ==
LOC: WWCWWP 08:28
PROVIDERS: ATTEND Surgery
DX: Z53.9 Procedure and treatment not carried out, unspecified reason (principal)

== ENCOUNTER → 2019-05-11 | Outpatient (CLI) | payer MEDICARE ==
--- NOTE | 2019-05-11 16:45 | PN ---
PROGRESS NOTE This is a 69-year-old female patient coming in for an annual check regarding her AMA. She is doing well. She is on an APAP machine which is set with a minimum of 8 and a maximum of 12 cm of water. Her initial study was done at a sleep center in [place] and she is carrying the same CPAP unit that she was given several years back. She was given a diagnosis of severe obstructive sleep apnea with an AHI of 75. For now the patient is being successfully treated. [place] score is down to 4. She is averaging more than 8 hours of CPAP use per night. Her P90 pressure is at 11.4. Her AHI is down to 1.4 while on treatment. No significant weight gain or weight loss. Her weight has been stable. [place] score is down to 4. She is using the AirFit P10 small nasal pillows. No respiratory difficulty at nighttime during sleep. No heartburn. No chest pain. No shortness of breath. No falling asleep while talking to other individuals or driving. REVIEW OF SYSTEMS: Fourteen-point review of system was done. Positive findings are all mentioned in the history of present illness. PHYSICAL EXAMINATION: VITAL SIGNS: BP is 139/86, pulse 68, respirations 16, temperature 97.8, saturation 96% on room air. Height is 5 feet 1 inch, weight is 256 and BMI is 47.5. GENERAL APPEARANCE: Calm, comfortable. HEAD: Atraumatic, normocephalic. NECK: Supple. There is no JVD. No goiter or neck masses. LUNGS: Clear to auscultation. HEART: Heart sounds are regular rate and rhythm. Normal S1, S2. No S3. No murmurs. ABDOMEN: Soft, nontender. No organomegaly. EXTREMITIES: No edema. No cyanosis or clubbing. NEUROLOGIC: The patient is alert and oriented x3. No focal neurological deficits. PSYCHIATRIC: Negative for anxiety or depression. SKIN: Negative for any wounds or ulceration. IMPRESSION: 1. Symptomatic obstructive sleep apnea, severe, with an apnea/hypopnea index of 75, currently on APAP. 2. Obesity with a body mass index of 47.5, currently stable. 3. Hypersomnia, recovered. [place] score is down to 4. 4. Hypothyroidism. 5. Hypertension. 6. Hyperlipidemia. PLAN: 1. Continue APAP therapy at the same pressure setting. 2. Keep the patient on small-sized AirFit P10 nose pillows. 3. Encourage weight loss. 4. Implement good sleep hygiene measures. 5. Will continue to follow. See me back in a year's time in followup, earlier if needed. MMODL / IJN: [id number] /
== END | disposition home or self-care (01) ==
LOC: SLEEP 14:15
PROVIDERS: ATTEND Internal Medicine Critical Care Medicine
DX: G47.33 Obstructive sleep apnea (adult) (pediatric) (principal); E66.9 Obesity, unspecified; E03.9 Hypothyroidism, unspecified; I10 Essential (primary) hypertension; E78.5 Hyperlipidemia, unspecified; Z68.42 Body mass index [BMI] 45.0-49.9, adult

== ENCOUNTER → 2019-08-09 | Outpatient (CLI) | payer MEDICARE ==
--- NOTE | 2019-08-10 08:25 | MM ---
Reason for exam: follow-up at short interval from prior study. Last mammogram was performed 7 months ago. History: Patient is postmenopausal and is nulliparous. Benign MG stereo VAD BX LT of the left breast, January 28, 2019. Physical Findings: Nurse did not find any significant physical abnormalities on exam. MG 3D Diag Mammo W/Cad LT CC and MLO view(s) were taken of the left breast. Prior study comparison: January 07, 2019, left breast MG work up mamm w CAD LT. December 31, 2018, bilateral MG 3d screening mammo w/cad. There are scattered fibroglandular densities. Benign appearing calcifications in the left breast. Left biopsy marker noted. These results were verbally communicated with the patient and result sheet given to the patient on 08/09/19. ASSESSMENT: Benign, BI-RAD 2 RECOMMENDATION: Return to routine screening mammogram schedule for both breasts. Back on schedule January 2020.
== END | disposition home or self-care (01) ==
LOC: RADMAMWWP 14:56
PROVIDERS: ATTEND Surgery
DX: R92.8 Other abnormal and inconclusive findings on diagnostic imaging of breast (principal)
CPT/HCPCS: 77065; G0279; 77061

== ENCOUNTER → 2019-08-12 | Outpatient (CLI) | payer MEDICARE ==
[2019-08-12 14:45] VITALS: BP 135/84; PULSE 75; RESP 18; TEMP 97.9
--- NOTE | 2019-08-12 15:23 | P.PN ---
Subjective Progress Note Date: 08/12/19 Principal diagnosis: Surveillance status post stereo biopsy left breast/fibrocystic breast/macromastia Patient is a 69 year old white female was entered initially with a complaint of increasing microcalcification in the left breast. Underwent a stereotactic core biopsy of the left breast on . Pathology revealed benign breast with prominent adipose tissue and fibrocystic changes including fibroadenomatoid hyperplasia. The initial specimen did not reveal calcifications however on deeper cuts focal benign calcifications were noted. She had a repeat left breast mammogram on 1619. This did not show any lesions of concern. It was BIRADS 2 and repeat bilateral mammogram and January 2020 is recommended. She has no history of any trauma to the breast. She has no masses, or pain in the breast. She has never had a breast biopsy. She has no complaints at this time. She is not complaining of any pain masses lumps or nodules in either breast. The patient also has macromastia. This has resulted in shoulder notching however no back pain at this time. The patient is losing weight and does not want anything done as well as reduction of the breast until she has lost weight. caffeine: 1 cup coffee and one diet coke/day nicotine: none chocolate: 2 times/week hormones: none Family History: sister: of colon cancer at 62 mother: cervical cancer Hormonal History: menarche: 14 G0 menopause: 54 BCP: none hormones: none Surgical History: gallbaldder cataract total knee left gastric bypass hysterctomy bladder suspension Medical History: HTN CPAP sleep apnea GERD blisters on her cornea macromastia mitral valve prolapse Social History: smoke: none alcohol: none drugs: none - Constitutional Constitutional: Denies chills, Denies fever - EENT Comment: cataract bilateral Eyes: blurred vision, 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 Ears: bilateral: decreased hearing (bilateral hearing aids), deny: tinnitus Ears, nose, mouth and throat: Denies headache, Denies sore throat - Breasts Breasts: bilateral: as per HPI - Cardiovascular Comment: mitral valve regurg since Cardiovascular: Reports high blood pressure - Respiratory Comment: sleep apnea - Gastrointestinal Comment: GERD, s/p cholcystectomy - Genitourinary (Female) Comment: bladder suspension Genitourinary: Denies dysuria, Denies hematuria - Menstruation Comment: left her ovaries Menstruation: Reports post hysterectomy - Musculoskeletal Comment: arthritis both hands, left knee replacement - Integumentary Integumentary: Denies pruritus, Denies rash - Neurological Comment: TIA in 1973 last one Neurological: Denies numbness, Denies weakness - Psychiatric Psychiatric: Reports depression - Endocrine Comment: hypothyroid Endocrine: Denies fatigue, Denies weight change - Hematologic/Lymphatic Comment: baby aspirin - Allergic/Immunologic Allergic/Immunologic: Reports as per HPI, Reports seasonal allergies Past Medical History Past Medical History: CVA/TIA, GERD/Reflux, Hypertension, Sleep Apnea/CPAP/BIPAP Additional Past Medical History / Comment(s): MITRAL VALVE PROLAPSE, MINOR. TIA 1973, NO RESIDUAL. USES CPAP. History of Any Multi-Drug Resistant Organisms: MRSA Date of last positivie culture/infection: 09/2018 MDRO Source:: NASAL SWAB Past Surgical History: Bariatric Surgery, Bladder Surgery, Cholecystectomy, Hy sterectomy, Joint Replacement, Orthopedic Surgery Additional Past Surgical History / Comment(s): GASTRIC BYPASS. SVEN CATARACTS. COLONOSCOPY, EGD. TKR left knee Sep 2018 & 01/2019 Past Anesthesia/Blood Transfusion Reactions: No Reported Reaction Additional Past Anesthesia/Blood Transfusion Reaction / Comment(s): no hx blood transfusion Past Psychological History: Depression Smoking Status: Never smoker Past Alcohol Use History: None Reported Past Drug Use History: None Reported Objective - Vital Signs Vital signs: Vital Signs Temp 97.9 F 08/12/19 14:43 Pulse 75 08/12/19 14:43 Resp 18 08/12/19 14:43 BP 135/84 08/12/19 14:43 Pulse Ox 94 L 08/12/19 14:43 Intake & Output 08/11/19 08/12/19 08/12/19 18:59 06:59 18:59 Weight 118.388 kg - Exam BMI 49.3 - Constitutional General appearance: Present: obese - EENT Eyes: Present: EOMI ENT: Present: hearing grossly normal - Neck Details: no adenopathy of concern Neck: Present: normal ROM - Respiratory Respiratory: bilateral: CTA - Cardiovascular Rhythm: regular Heart sounds: normal: S1, S2 - Gastrointestinal General gastrointestinal: Present: normal bowel sounds, soft - Integumentary Integumentary: Present: normal turgor - Musculoskeletal Musculoskeletal: Present: gait normal - Psychiatric Psychiatric: Present: A&O x's 3, appropriate affect, intact judgment & insight - Additional findings Additional findings: breast exam: BRA 44D ptosis grade 3 right breast: Multi-positional exam fibrocystic breast changes, well-healed scar from prior trauma on her right chest wall, no dominant masses or nodules of concern Right axilla: No adenopathy of concern Left breast: Multi-positional exam fibrocystic breast changes and no dominant masses or nodules of concern Left axilla: No adenopathy of concern Right breast is slightly larger than left breast, Bilateral shoulder notching related to macromastia Assessment and Plan Assessment: Impression: 1. Fibrocystic breast changes 2. Recent left breast mammogram reviewed with radiologist benign BIRADS 2 3. well healed scar right chest wall from prior trauma 4. HTN 5. sleep apnea 6. corneal blisters/blurred vision 7. macromastia resulting in shoulder notching 8. no back pain at this time related to macromastia 9. mitral valve prolapse We have discussed causes of fibrocystic breast changes. These include the caffeine, theophylline, and the possibility that the adipose tissue related to obesity can cause estrogen formation. I have encouraged them to to lose weight. She understands this and is working on it. Discussed the possibility of breast reduction secondary to shoulder notching of the large size of her breast. At this time she is interested in losing weight and then may consider breast reduction. Plan: 1. bilateral mammogram in January 2020 with appointment 2. counselled to lose weight 3. counselled on causes of fibrocystic breast disease 4. consideration of breast reduction secondary to macromastia CC: Dr. Vargas encounter 25 minuted, > 50% of time in planning and counseling Time with Patient: Less than 30
== END | disposition home or self-care (01) ==
LOC: WWCWWP 14:33
PROVIDERS: ATTEND Surgery
DX: Z53.9 Procedure and treatment not carried out, unspecified reason (principal)

== ENCOUNTER → 2020-01-11 | Outpatient (CLI) | payer MEDICARE ==
--- NOTE | 2020-01-11 12:27 | MM ---
Reason for exam: screening (asymptomatic). Last mammogram was performed 5 months ago. History: Patient is postmenopausal and is nulliparous. Benign MG stereo VAD BX LT of the left breast, January 28, 2019. Physical Findings: A clinical breast exam by your physician is recommended on an annual basis and results should be correlated with mammographic findings. MG 3D Screening Mammo W/Cad Bilateral CC and MLO view(s) were taken. Prior study comparison: August 09, 2019, left breast MG 3d diag mammo w/cad LT. January 07, 2019, left breast MG work up mamm w CAD LT. Benign appearing bilateral calcifications. No suspicious abnormality. Left biopsy marker noted. No significant changes when compared with prior studies. ASSESSMENT: Benign, BI-RAD 2 RECOMMENDATION: Routine screening mammogram of both breasts in 1 year.
== END | disposition home or self-care (01) ==
LOC: RADMAMWWP 07:14
PROVIDERS: ATTEND Surgery
DX: Z12.31 Encounter for screening mammogram for malignant neoplasm of breast (principal)
CPT/HCPCS: 77063; 77067

== ENCOUNTER → 2020-01-14 | Outpatient (CLI) | payer MEDICARE ==
[2020-01-14 10:01] VITALS: BP 130/85; PULSE 69; RESP 20; TEMP 98.1
--- NOTE | 2020-01-14 10:26 | P.PN ---
Subjective Progress Note Date: 01/14/20 Principal diagnosis: fibrocystic breast disease Patient is a 69 year old white female was seen initially with a complaint of increasing microcalcification in the left breast. Underwent a stereotactic core biopsy of the left breast on . Pathology revealed benign breast with prominent adipose tissue and fibrocystic changes including fibroadenomatoid hyperplasia. The initial specimen did not reveal calcifications however on deeper cuts focal benign calcifications were noted. She had a repeat left breast mammogram on 1619. This did not show any lesions of concern. It was BIRADS 2 and repeat bilateral mammogram and January 2020 is recommended. She has no history of any trauma to the breast. She has no masses, or pain in the breast. She has no complaints at this time. She is not complaining of any pain masses lumps or nodules in either breast. The patient also has macromastia. This has resulted in shoulder notching however, no back pain at this time. The patient is losing weight Has oast 10 pounds) and does not want anything done regarding reduction of the breast until she has lost weight. She has no complaints related to her breast on today's exam. She had a bilateral mammogram on 6919 which was benign BIRADS 2. Repeat bilateral mammogram in 1 year is recommended. caffeine: 1 cup coffee and one diet coke/day nicotine: none chocolate: < 2 times/week hormones: none Family History: sister: of colon cancer at 62 mother: cervical cancer Hormonal History: menarche: 14 G0 menopause: 54 BCP: none hormones: none Surgical History: gallbaldder cataract total knee left gastric bypass hysterctomy bladder suspension Medical History: HTN CPAP sleep apnea GERD blisters on her cornea macromastia mitral valve prolapse Social History: smoke: none alcohol: none drugs: none - Constitutional Constitutional: Denies chills, Denies fever - EENT Comment: cataract bilateral Eyes: blurred vision, 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 Ears: bilateral: decreased hearing (bilateral hearing aids), deny: tinnitus Ears, nose, mouth and throat: Denies headache, Denies sore throat - Breasts Breasts: bilateral: as per HPI - Cardiovascular Comment: mitral valve regurg since Cardiovascular: Reports high blood pressure - Respiratory Comment: sleep apnea - Gastrointestinal Comment: GERD, s/p cholcystectomy - Genitourinary (Female) Comment: bladder suspension Genitourinary: Denies dysuria, Denies hematuria - Menstruation Comment: left her ovaries Menstruation: Reports post hysterectomy - Musculoskeletal Comment: arthritis both hands, left knee replacement - Integumentary Integumentary: Denies pruritus, Denies rash - Neurological Comment: TIA in 1974 last one Neurological: Denies numbness, Denies weakness - Psychiatric Psychiatric: Reports depression - Endocrine Comment: hypothyroid Endocrine: Denies fatigue, Denies weight change - Hematologic/Lymphatic Comment: baby aspirin Objective - Vital Signs Vital signs: Vital Signs Temp 98.1 F 01/14/20 09:58 Pulse 69 01/14/20 09:58 Resp 20 01/14/20 09:58 BP 130/85 01/14/20 09:58 Pulse Ox 95 01/14/20 09:58 Intake & Output 01/13/20 01/14/20 01/14/20 18:59 06:59 18:59 Weight 113.398 kg - Exam BMI 45.7 - Constitutional General appearance: Present: obese - EENT Eyes: Present: EOMI ENT: Present: hearing grossly normal - Neck Neck: Present: normal ROM - Respiratory Respiratory: bilateral: CTA - Cardiovascular Rhythm: regular Heart sounds: normal: S1, S2 - Gastrointestinal General gastrointestinal: Present: normal bowel sounds, soft - Integumentary Integumentary: Present: normal turgor - Musculoskeletal Musculoskeletal: Present: gait normal - Psychiatric Psychiatric: Present: A&O x's 3, appropriate affect, intact judgment & insight - Additional findings Additional findings: breast exam BRA 44D inspection: grade 3 ptosis bilateral Palpation: Right breast: Multi-positional exam fibrocystic changes, no dominant masses or nodules of concern Right axilla: No adenopathy of concern Left breast: Multiple positional exam fibrocystic changes Left axilla: No adenopathy of concern Assessment and Plan Assessment: Impression: 1. Bilateral fibrocystic breast changes 2. Stable bilateral mammogram 6920, BIRADS 2, routine screening of both breast in 1 year 3. Status post left breast stereotactic core biopsy in the past 4. Macromastia with shoulder notching 5. BMI 45.7 6. Hypertension 7. Sleep apnea 8. GERD 9. Mitral valve prolapse Plan: 1. Patient is losing weight she has recently lost 10 pounds 2. Patient will consider breast reduction following completion of her weight lost 3. Fibrocystic breast changes to follow conservatively bilateral mammogram in 1 year with physician exam at that time Cc: Dr. Vargas encounter 20 minutes, > 50% of tiem in planning and counselling
== END | disposition home or self-care (01) ==
LOC: WWCWWP 09:36
PROVIDERS: ATTEND Surgery
DX: Z53.9 Procedure and treatment not carried out, unspecified reason (principal)

== ENCOUNTER 2020-03-06 15:37 | Observation (INO) | payer MEDICARE ==
--- NOTE | 2020-03-06 16:24 | ED ---
Altered Mental Status HPI - General Chief Complaint: Altered Mental Status Stated Complaint: memory problems Time Seen by Provider: 03/06/20 15:40 Source: patient Mode of arrival: wheelchair Limitations: no limitations - History of Present Illness Initial Comments: Patient is a 70-year-old female past medical history of hypertension, TIAs who presents to the emergency department with reported short-term memory issues. Sister is at bedside and helps provide history. Patient reports that she awoke around 8 AM and felt well. Around 11 AM she states she was playing on the computer when she started feeling forgetful. She called her sister around 2 PM. They spoke, the patient hung up and ended up calling her right back stating that she forgot that she had spoken with her. Sister then went to her house around 3 PM and transported her to the hospital. On the way to the hospital the patient asked several times where they were going. Both of them report that this has previously happened to the patient, 15 years ago when she had a TIA. She denies any unilateral numbness or weakness. No speech difficulties. Patient answers questions appropriately upon my evaluation. Denies visual changes. No recent head trauma. No medication changes. No recent illnesses. No other alleviating, precipitating or modifying factors - Related Data Home Medications Medication Instructions Recorded Confirmed Ascorbic Acid [Vitamin C] 1,000 mg PO HS 01/02/18 03/06/20 Aspirin [Adult Low Dose Aspirin EC] 81 mg PO DAILY@1200 01/02/18 03/06/20 Cholecalciferol [Vitamin D3 (25 3,000 unit PO QA 01/02/18 03/06/20 Mcg = 1000 Iu)] Ferrous Sulfate [Iron (65 MG 325 mg PO HS 01/02/18 03/06/20 Elemental)] Multivitamins, Thera [Multivitamin 1 tab PO BID 01/02/18 03/06/20 (formulary)] Potassium Chloride ER [K-Dur 20] 20 meq PO DAILY@1200 01/02/18 03/06/20 lisinopriL [Zestril] 10 mg PO BID 01/02/18 03/06/20 Fluticasone Nasal [place] [Flonase 2 spr EA NOSTRIL HS 09/01/18 03/06/20 Nasal [place]] Krill Oil 500 mg PO DAILY@1200 09/01/18 03/06/20 buPROPion HCL [Wellbutrin SR] 150 mg PO BID 09/01/18 03/06/20 Levothyroxine Sodium 112 mcg PO DAILY 09/07/18 03/06/20 Calcium Citrate 600mg Tab 1 tab PO BID 03/06/20 03/06/20 Omeprazole 20 mg PO HS 03/06/20 03/06/20 Previous Rx's Medication Instructions Recorded Atorvastatin Calcium [Lipitor] 40 mg PO HS #30 tablet 03/07/20 Clopidogrel Bisulfate [Plavix] 75 mg PO DAILY #30 tab 03/07/20 Allergies Allergy/AdvReac Type Severity Reaction Status Date / Time Tetracyclines Allergy Anaphylaxis Verified 03/06/20 19:04 Review of Systems ROS Statement: Those systems with pertinent positive or pertinent negative responses have been documented in the HPI. ROS Other: All systems not noted in ROS Statement are negative. Past Medical History Past Medical History: CVA/TIA, GERD/Reflux, Hypertension, Sleep Apnea/CPAP/BIPAP Additional Past Medical History / Comment(s): MITRAL VALVE PROLAPSE, TIA 1973-NO RESIDUAL. USES CPAP. History of Any Multi-Drug Resistant Organisms: MRSA Date of last positivie culture/infection: 09/2018 MDRO Source:: NASAL SWAB Past Surgical History: Bariatric Surgery, Bladder Surgery, Cholecystectomy, Hysterectomy, Joint Replacement, Orthopedic Surgery Additional Past Surgical History / Comment(s): GASTRIC BYPASS. SVEN CATARACTS. COLONOSCOPY, EGD. TKR left knee Sep 2018 & 01/2019 Past Anesthesia/Blood Transfusion Reactions: No Reported Reaction Additional Past Anesthesia/Blood Transfusion Reaction / Comment(s): no hx blood transfusion Past Psychological History: Depression Past Alcohol Use History: None Reported Past Drug Use History: None Reported - Past Family History Sister(s) Family Medical History: Cancer, Hypertension Additional Family Medical History / Comment(s): COLON CA Mother Family Medical History: Cancer, Diabetes Mellitus, Hypertension Additional Family Medical History / Comment(s): CERVICAL Father Family Medical History: Hypertension Brother(s) Family Medical History: Congestive Heart Failure (CHF), Hypertension General Exam Limitations: no limitations General appearance: alert, in no apparent distress Head exam: Present: atraumatic, normocephalic, normal inspection Eye exam: Present: normal appearance, PERRL, EOMI. Absent: scleral icterus, conjunctival injection, periorbital swelling ENT exam: Present: normal exam, mucous membranes moist Neck exam: Present: normal inspection. Absent: tenderness, meningismus, lymphadenopathy Respiratory exam: Present: normal lung sounds bilaterally. Absent: respiratory distress, wheezes, rales, rhonchi, stridor Cardiovascular Exam: Present: regular rate, normal rhythm, normal heart sounds. Absent: systolic murmur, diastolic murmur, rubs, gallop, clicks GI/Abdominal exam: Present: soft, normal bowel sounds. Absent: distended, tenderness, guarding, rebound, rigid Extremities exam: Present: normal inspection, full ROM, normal capillary refill. Absent: tenderness, pedal edema, joint swelling, calf tenderness Back exam: Present: normal inspection Neurological exam: Present: alert, oriented X3, CN II-XII intact, other (Patient is alert and oriented. She answers all questions properly. No lateralizing deficits. No facial droop. Uvula is midline and speech is clear) Psychiatric exam: Present: normal affect, normal mood Skin exam: Present: warm, dry, intact, normal color. Absent: rash Course Vital Signs 03/06/20 03/06/20 03/06/20 15:38 16:32 16:53 Temperature 98 F Pulse Rate 74 78 Pulse Rate [ Pulse Oximetery ] Respiratory 16 18 Rate Blood Pressure 204/88 128/86 140/89 Blood Pressure [Left Arm] O2 Sat by Pulse 98 98 Oximetry 03/06/20 03/06/20 03/06/20 18:36 18:50 19:00 Temperature 97.6 F Pulse Rate 64 72 Pulse Rate [ 80 Pulse Oximetery ] Respiratory 20 18 11 L Rate Blood Pressure 126/92 114/101 Blood Pressure 166/78 [Left Arm] O2 Sat by Pulse 96 96 93 L Oximetry 03/06/20 03/06/20 03/06/20 20:00 21:00 22:00 Temperature Pulse Rate 67 63 68 Pulse Rate [ Pulse Oximetery ] Respiratory 13 12 18 Rate Blood Pressure 110/75 97/55 107/56 Blood Pressure [Left Arm] O2 Sat by Pulse 94 L 94 L 93 L Oximetry Medical Decision Making - Medical Decision Making Upon arrival the patient was placed into room 1. A thorough history and physical exam is performed. NIH stroke scale is performed and the patient scores a 0. She answers all questions appropriately and follows commands. She does have good recall. Laboratory studies were conducted. The patient does go over for a CT of her brain as well as CT angiography. Laboratory studies are unremarkable. CT of the patient's brain as well as CT angiography demonstrates no evidence of aneurysms, bleeding or obstruction. Mild atrophy. Chest x-ray demonstrates no active cardiac disease. The patient is reevaluated and continues to have an NIH of 0. She is given 650 mg of Tylenol for a headache that she has developed. I discussed the diagnosis, differential treatment options. Patient did agree to hospital admission with neurology to consult. Discussed case with Dr. Mehta. Patient was given a full dose aspirin. The patient is currently awaiting a bed on the floor - Lab Data Result diagrams: 03/06/20 16:16 03/06/20 16:16 Lab Results 03/06/20 03/06/20 03/06/20 Range/Units 16:16 16:16 16:16 WBC 7.0 (3.8-10.6) k/uL RBC 4.76 (3.80-5.40) m/uL Hgb 14.4 (11.4-16.0) gm/dL Hct 45.1 (34.0-46.0) % MCV 94.7 (80.0-100.0) fL MCH 30.3 (25.0-35.0) pg MCHC 32.0 (31.0-37.0) g/dL RDW 13.0 (11.5-15.5) % Plt Count 193 (150-450) k/uL Neutrophils % 62 % Lymphocytes % 25 % Monocytes % 5 % Eosinophils % 4 % Basophils % 1 % Neutrophils # 4.3 (1.3-7.7) k/uL Lymphocytes # 1.8 (1.0-4.8) k/uL Monocytes # 0.3 (0-1.0) k/uL Eosinophils # 0.3 (0-0.7) k/uL Basophils # 0.0 (0-0.2) k/uL PT 9.4 (9.0-12.0) sec INR 0.9 (<1.2) APTT 21.3 L (22.0-30.0) sec Sodium 140 (137-145) mmol/L Potassium 4.6 (3.5-5.1) mmol/L Chloride 105 (98-107) mmol/L Carbon Dioxide 28 (22-30) mmol/L Anion Gap 7 mmol/L BUN 29 H (7-17) mg/dL Creatinine 0.86 (0.52-1.04) mg/dL Est GFR (CKD-EPI)AfAm 81 (>60 ml/min/1.73 sqM) Est GFR (CKD-EPI)NonAf 70 (>60 ml/min/1.73 sqM) Glucose 101 H (74-99) mg/dL Calcium 9.8 (8.4-10.2) mg/dL Total Bilirubin 0.9 (0.2-1.3) mg/dL AST 33 (14-36) U/L ALT 24 (4-34) U/L Alkaline Phosphatase 81 (38-126) U/L Troponin I (0.000-0.034) ng/mL Total Protein 6.7 (6.3-8.2) g/dL Albumin 4.5 (3.5-5.0) g/dL 03/06/20 Range/Units 16:16 WBC (3.8-10.6) k/uL RBC (3.80-5.40) m/uL Hgb (11.4-16.0) gm/dL Hct (34.0-46.0) % MCV (80.0-100.0) fL MCH (25.0-35.0) pg MCHC (31.0-37.0) g/dL RDW (11.5-15.5) % Plt Count (150-450) k/uL Neutrophils % % Lymphocytes % % Monocytes % % Eosinophils % % Basophils % % Neutrophils # (1.3-7.7) k/uL Lymphocytes # (1.0-4.8) k/uL Monocytes # (0-1.0) k/uL Eosinophils # (0-0.7) k/uL Basophils # (0-0.2) k/uL PT (9.0-12.0) sec INR (<1.2) APTT (22.0-30.0) sec Sodium (137-145) mmol/L Potassium (3.5-5.1) mmol/L Chloride (98-107) mmol/L Carbon Dioxide (22-30) mmol/L Anion Gap mmol/L BUN (7-17) mg/dL Creatinine (0.52-1.04) mg/dL Est GFR (CKD-EPI)AfAm (>60 ml/min/1.73 sqM) Est GFR (CKD-EPI)NonAf (>60 ml/min/1.73 sqM) Glucose (74-99) mg/dL Calcium (8.4-10.2) mg/dL Total Bilirubin (0.2-1.3) mg/dL AST (14-36) U/L ALT (4-34) U/L Alkaline Phosphatase (38-126) U/L Troponin I <0.012 (0.000-0.034) ng/mL Total Protein (6.3-8.2) g/dL Albumin (3.5-5.0) g/dL - EKG Data EKG Comments: EKG demonstrates normal sinus rhythm with a ventricular rate of 74. DE interval 174. QRS 92. QTC 428. No acute ST segment elevations or depressions concerning for ischemic changes Disposition Clinical Impression: Acute encephalopathy, TIA (transient ischemic attack) Disposition: ADMITTED IP TO THIS HOSP Condition: Stable Is patient prescribed a controlled substance at d/c from ED?: No Decision to Admit Reason: Admit from EC Decision Date: 03/06/20 Decision Time: 18:13
[2020-03-06 16:28] LABS: Basophils % (A) 1 %; Eosinophils # (A) 0.3 k/uL (0-0.7); Eosinophils % (A) 4 %; HCT 45.1 % (34.0-46.0); HGB 14.4 gm/dL (11.4-16.0); Lymphocytes # (A) 1.8 k/uL (1.0-4.8); Lymphocytes % (A) 25 %; MCH 30.3 pg (25.0-35.0); MCV 94.7 fL (80.0-100.0); Monocytes # (A) 0.3 k/uL (0-1.0); Monocytes % (A) 5 %; Neutrophils # (A) 4.3 k/uL (1.3-7.7); Neutrophils % (A) 62 %; Platelet Count 193 k/uL (150-450); RBC 4.76 m/uL (3.80-5.40)
[2020-03-06 16:39] LABS: Albumin 4.5 g/dL (3.5-5.0); Calcium 9.8 mg/dL (8.4-10.2); Potassium 4.6 mmol/L (3.5-5.1); Total Bilirubin 0.9 mg/dL (0.2-1.3); Total Protein 6.7 g/dL (6.3-8.2)
--- NOTE | 2020-03-06 16:40 | XR ---
EXAMINATION TYPE: XR chest 2V DATE OF EXAM: 03/06/2020 COMPARISON: NONE HISTORY: Altered mental status TECHNIQUE: 2 views FINDINGS: Heart and mediastinum are within normal limits. Lungs are clear of infiltrate. There is no pleural effusion. Costophrenic angles are clear. Bony thorax appears intact. There are chest leads. IMPRESSION: No active cardiopulmonary disease.
[2020-03-06 16:42] LABS: INR 0.9 (<1.2); Prothrombin Time 9.4 sec (9.0-12.0)
[2020-03-06 17:15] LABS: Partial Thromboplastin Time 21.3 sec (22.0-30.0)
--- NOTE | 2020-03-06 17:16 | CT ---
EXAMINATION TYPE: CT brain wo con DATE OF EXAM: 03/06/2020 COMPARISON: None HISTORY: Headache and memory loss. CT DLP: 1075.8 mGycm Automated exposure control for dose reduction was used. Multiple axial sections were obtained of the brain without contrast. There is mild cerebral atrophy. There is no mass effect nor midline shift. There is no sign of intrac ranial hemorrhage. Calvarium is intact. There is no evidence of cerebral edema. Skull base is intact. There is normal aeration of the temporal bones. IMPRESSION: Mild atrophy. No acute intracranial abnormality.
--- NOTE | 2020-03-06 17:58 | CT ---
EXAMINATION TYPE: CT angio head neck DATE OF EXAM: 03/06/2020 COMPARISON: None HISTORY: Headache and memory loss. CT DLP: mGycm Automated exposure control for dose reduction was used. CONTRAST: Performed with IV Contrast, patient injected with 65 mL of Isovue 370. There are 3-D post processed images. There is normal branching pattern of the great vessels on the aortic arch. Ascending aorta measures 3 .9 cm. There is bilateral arterial flow in the subclavian arteries. There is arterial flow in the com mon internal and external carotid arteries bilaterally. There is wide patency of the carotid artery b ifurcations. There is arterial flow in both vertebral arteries. There is no evidence of carotid or ve rtebral artery aneurysm or dissection. There is arterial flow in the vertebrobasilar artery system. There is arterial flow in the anterior middle and posterior cerebral arteries bilaterally. The right posterior cerebral artery appears to fill entirely through the right posterior communicating artery. There is normal contrast opacification of the venous sinuses. There is no evidence of intracranial an eurysm or neovascularity. I see no evidence of intracranial arterial stenosis. There is no mass effec t. IMPRESSION: Negative CT angiogram of the neck. Negative CT angiogram of the brain. 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
[2020-03-06] MEDS ORDERED: ACETAMINOPHEN TAB 325 MG TAB PO STA (18:12)
[2020-03-06] MEDS ORDERED: ASPIRIN 325 MG TAB PO STA (18:18)
[2020-03-07 06:22] LABS: Cholesterol 125 mg/dL (<200); HDL Cholesterol 51 mg/dL (40-60); LDL Cholesterol,Calculated 48 mg/dL (0-99); Triglycerides 131 mg/dL (<150)
--- NOTE | 2020-03-07 08:22 | P.CNNES ---
History of Present Illness Consult date: 03/07/20 Requesting physician: Sri Navarro Reason for Consult: altered mental status, possible TIA History of Present Illness: This is a 70-year-old female with medical history of hypertension, TIA's that presented to the emergency department on 03/06/2020 with the short-term memory loss and unable to get her words out. Per the patient that she stated that on 03/06/2020 she was doing well up until 11am and she does not recall the episodes after that for 4 hours. She states that according to her sister the patient called her sister at work and she told her that that she wasn't doing well. Then she called her again within a half hour and her sister told her she is on her way to her house. She said that she was having difficulty getting her words out and the episode lasted for 4 hours. Again she does not recall events for 4 hours and she feels now she is back to baseline. She denies of any weakness any numbness any visual disturbance any difficulty swallowing. She had similar episodes more than 30 years ago she had 3 episodes and one episode per month for 3 months. Those episodes she also had that the difficulty getting her words out and the short-term memory loss that short-term memory loss lasted for a few hours while in the her a fees L lasted for 24 hours and one of the episodes. She did have EEG more than 30 years ago and she had at [place] she does not recall the report these were TIAs and she was placed on [id number] and she is on [id number]. She denies any history of seizures. She did have depression about 2 years ago and she was placed on Wellbutrin 150 mg twice a day at. In the ED her workup consisted of CT of the brain which was reported as mild atrophy. No acute intracranial abnormality. CT angiogram of the head and neck was also performed and was reported as negativ e CT angiogram of the neck and negative CT angiogram of the brain. It's reported that there is a borderline aneurysm of the ascending aorta measuring 3.9 cm EKG was completed and was reported as normal sinus rhythm, normal EKG. Ventricle rate was 74. Chest x-ray was completed and the impression was no active cardio or pulmonary disease. On presentation the patient's blood pressure was 140/89 the heart rate was 78 respiratory was 18 temperature was 97.6 Fahrenheit oral and pulse ox was 98 at room air. She is on levothyroxine 112 mcg daily and Wellbutrin 150 twice a day. Review of Systems Review of system: The 12 point system was reviewed and apparent positive and negative per HPI. Past Medical History Past Medical History: CVA/TIA, GERD/Reflux, Hypertension, Sleep Apnea/CPAP/BIPAP Additional Past Medical History / Comment(s): MITRAL VALVE PROLAPSE, TIA 1973-NO RESIDUAL. USES CPAP. History of Any Multi-Drug Resistant Organisms: MRSA Date of last positivie culture/infection: 09/2018 MDRO Source:: NASAL SWAB Past Surgical History: Bariatric Surgery, Bladder Surgery, Cholecystectomy, Hysterectomy, Joint Replacement, Orthopedic Surgery Additional Past Surgical History / Comment(s): GASTRIC BYPASS. SVEN CATARACTS. COLONOSCOPY, EGD. TKR left knee Sep 2018 & 01/2019 Past Anesthesia/Blood Transfusion Reactions: No Reported Reaction Additional Past Anesthesia/Blood Transfusion Reaction / Comment(s): no hx blood transfusion Past Psychological History: Depression Past Alcohol Use History: None Reported Past Drug Use History: None Reported - Past Family History Sister(s) Family Medical History: Cancer, Hypertension Additional Family Medical History / Comment(s): COLON CA Mother Family Medical History: Cancer, Diabetes Mellitus, Hypertension Additional Family Medical History / Comment(s): CERVICAL Father Family Medical History: Hypertension Brother(s) Family Medical History: Congestive Heart Failure (CHF), Hypertension Medications and Allergies Home Medications Medication Instructions Recorded Confirmed Type Ascorbic Acid [Vitamin C] 1,000 mg PO HS 01/02/18 03/06/20 History Aspirin [Adult Low Dose Aspirin EC] 81 mg PO DAILY@1200 01/02/18 03/06/20 Histor y Cholecalciferol [Vitamin D3 (25 3,000 unit PO QAM 01/02/18 03/06/20 History Mcg = 1000 Iu)] Ferrous Sulfate [Iron (65 MG 325 mg PO HS 01/02/18 03/06/20 History Elemental)] Multivitamins, Thera [Multivitamin 1 tab PO BID 01/02/18 03/06/20 History (formulary)] Potassium Chloride ER [K-Dur 20] 20 meq PO DAILY@1200 01/02/18 03/06/20 History lisinopriL [Zestril] 10 mg PO BID 01/02/18 03/06/20 History Fluticasone Nasal [place] [Flonase 2 spr EA NOSTRIL HS 09/01/18 03/06/20 History Nasal [place]] Krill Oil 500 mg PO DAILY@1200 09/01/18 03/06/20 History buPROPion HCL [Wellbutrin SR] 150 mg PO BID 09/01/18 03/06/20 History Levothyroxine Sodium 112 mcg PO DAILY 09/07/18 03/06/20 History Calcium Citrate 600mg Tab 1 tab PO BID 03/06/20 03/06/20 History Omeprazole 20 mg PO HS 03/06/20 03/06/20 History Atorvastatin Calcium [Lipitor] 40 mg PO HS #30 tablet 03/07/20 Rx Clopidogrel Bisulfate [Plavix] 75 mg PO DAILY #30 tab 03/07/20 Rx Allergies Allergy/AdvReac Type Severity Reaction Status Date / Time Tetracyclines Allergy Anaphylaxis Verified 03/06/20 19:04 Physical Examination - Vital Signs Vital Signs: Vital Signs Temp Pulse Pulse Resp BP BP Pulse Ox 03/07/20 03:00 97.8 F 66 18 102/49 96 03/06/20 22:00 68 18 107/56 93 L 03/06/20 21:00 63 12 97/55 94 L 03/06/20 20:00 67 13 110/75 94 L 03/06/20 19:00 72 11 L 114/101 93 L 03/06/20 18:50 97.6 F 80 18 166/78 96 03/06/20 18:36 64 20 126/92 96 03/06/20 16:53 78 18 140/89 98 03/06/20 16:32 128/86 03/06/20 15:38 98 F 74 16 204/88 98 Intake and Output 03/06/20 03/07/20 03/07/20 22:59 06:59 14:59 Intake Total 240 240 Balance 240 240 Intake: Oral 240 240 Other: # Voids 1 0 Weight 98.883 kg 115.666 kg GENERAL: The patient is lying in bed and is not in acute distress. CHEST: The heart rate is regular rate rhythm. No murmurs to auscultation. No carotid bruit bilaterally. LUNG: Clear to auscultation bilaterally no wheezing noted throughout. Not labored breathing. ABDOMEN/GI: Bowel sounds present in all 4 quadrants. No tenderness to palpation throughout. NEUROLOGICAL: Higher mental function: The patient is awake, alert, oriented to self, place and time. Patient is following commands. No aphasia and no neglect. Cranial nerves: The pupils are round, equal and reactive to light and accommodation. Visual arias are full to confrontation throughout. Extraocular movement is intact no nystagmus is noted. Facial sensation is normal to touch throughout. The facial strength is normal throughout. Hearing is normal bilaterally to hand rub. Tongue is midline and moved [id number] without any difficulty. No dysarthria is noted. Shoulder shrug is normal bilaterally. Motor: The strength is 5 over 5 throughout. Normal tone and bulk. Cerebellum: Normal finger to nose heel to chin bilaterally. Sensation: Sensation is normal to touch throughout. Reflexes (right/left): 2+ throughout. Plantars are downgoing bilaterally. Results PT is 9.4 INR is 0.9, PTT is 21.3. The AST is 33, ALTs 24. The lipid profile that LDL was 48 HDL 51 triglycerides 131 the cholesterol is 125. - Laboratory Findings CBC and BMP: 03/06/20 16:16 03/06/20 16:16 Abnormal Lab Findings: Abnormal Labs 03/06/20 03/06/20 16:16 16:16 APTT 21.3 L BUN 29 H Glucose 101 H Assessment and Plan Assessment: This is a 70-year-old female with medical history of hypertension, TIA's that presented to the emergency department on 03/06/2020 with the short-term memory loss and unable to get her words out. She had an episode of difficulty getting her words out and loss of memory lasting for 4 hours. She denies other neurological issues associated with it. PShe did have depression about 2 years ago and she was placed on Wellbutrin 150 mg twice a day at. Transient amnesia and aphasia. Could be a TIA or possibly seizure (low on differential). Hx of TIA HTN Hx Depression Plan: TIA work-up: CT of the brain which was reported as mild atrophy. No acute intracranial abnormality. CT angiogram of the head and neck was also performed and was reported as negative CT angiogram of the neck and negative CT angiogram of the brain. It's reported that there is a borderline aneurysm of the ascending aorta measuring 3.9 cm EKG was completed and was reported as normal sinus rhythm, normal EKG. Ventricle rate was 74. lipid profile that LDL was 48 HDL 51 triglycerides 131 the cholesterol is 125. -Currently on ASA 81mg and Lipitor 10mg. -ordered 2D echo ordered TSH -ordered EEG since patient does not recall episode. -Regarding her borderline Ascending aneurysm: recommend consult vascular team -Wellbutrin lower the threshold of seizure and recommend if possible changing it to something different. Thanks for the consult. Jonathan Alfaro MD Neuro-hospitalist Time with Patient: Greater than 30
[2020-03-07 09:51] VITALS: RESP 20
[2020-03-07] MEDS ORDERED: MULTIVITAMINS, THERA 1 EACH TAB PO SCH (11:00)
[2020-03-07] MEDS ORDERED: buPROPion SR 150 MG TABLET.ER PO SCH (11:00)
[2020-03-07] MEDS ORDERED: lisinopriL 10 MG TAB PO SCH (11:00)
[2020-03-07] MEDS ORDERED: ENOXAPARIN 40 MG/0.4 ML SYRINGE SQ SCH (11:00)
[2020-03-07] MEDS ORDERED: LEVOTHYROXINE 112 MCG TAB PO SCH (11:00)
--- NOTE | 2020-03-07 11:14 | ECHOF ---
Referral Reason:stroke MEASUREMENTS -------- HEIGHT: 157.5 cm WEIGHT: 115.7 kg BP: 137/92 RVIDd: 3.2 cm (< 3.3) IVSd: 1.3 cm (0.6 - 1.1) LVIDd: 4.2 cm (3.9 - 5.3) LVPWd: 1.2 cm (0.6 - 1.1) IVSs: 1.7 cm LVIDs: 2.7 cm LVPWs: 1.7 cm LA Diam: 3.7 cm (2.7 - 3.8) LAESV Index (A-L): 26.04 ml/m Ao Diam: 3.1 cm (2.0 - 3.7) AV Cusp: 2.0 cm (1.5 - 2.6) MV EXCURSION: 13.666 mm (> 18.000) MV EF SLOPE: 48 mm/s (70 - 150) EPSS: 0.8 cm MV E Jasen: 1.10 m/s MV DecT: 176 ms MV A Jasen: 0.97 m/s MV E/A Ratio: 1.14 RAP: 5.00 mmHg RVSP: 30.62 mmHg FINDINGS -------- Sinus rhythm. This was a technically good study. The left ventricular size is normal. There is mild concentric left ventricular hypertrophy. Overa ll left ventricular systolic function is normal with, an EF between 60 - 65 %. The right ventricle is normal in size. Normal LA size by volume 22+/-6 ml/m2. The right atrium is normal in size. Interatrial and interventricular septum intact. There is mild aortic valve sclerosis. There is trace to mild mitral regurgitation. Mild tricuspid regurgitation present. Trace/mild (physiologic) pulmonic regurgitation. The aortic root size is normal. Normal inferior vena cava with normal inspiratory collapse consistent with estimated right atrial pre ssure of 5 mmHg. There is no pericardial effusion. CONCLUSIONS -------- 1. The left ventricular size is normal. 2. There is mild concentric left ventricular hypertrophy. 3. Overall left ventricular systolic function is normal with, an EF between 60 - 65 %. 4. There is mild aortic valve sclerosis. 5. There is trace to mild mitral regurgitation. 6. Mild tricuspid regurgitation present. 7. Trace/mild (physiologic) pulmonic regurgitation. 8. There is no pericardial effusion. TELEVISION PRODUCTION CLERK: Toshia Cornelius RDCS
[2020-03-07] MEDS ORDERED: POTASSIUM CHLORIDE ER 20 MEQ TAB.ER PO SCH (12:00)
[2020-03-07 17:56] VITALS: BP 139/91; PULSE 75; TEMP 98.3
--- NOTE | 2020-03-07 19:16 | P.HPIM ---
History of Present Illness H&P Date: 03/07/20 Chief Complaint: Loss of memory for events History of presenting complaint: This is a pleasant [address] Vargas. Chronic stable medical conditions include GERD, hypertension, obstructive sleep apnea using BiPAP, mitral valve prolapse, TIA in 1973 with noticeable up. History of gastric bypass surgery. Depression. Patient sitting at a computer yesterday and she does not really remember the events for the next 4 hours. What transpired was that she called up her sister and apparently was talking a bit on. Sister Jose ordered taken of the ER. In the process of getting the hospital at least 6 days patient noted of posterior look for the confidence to make sure nothing was day. Remembering the same. Only Patient remember was directly being in the hospital. She also remember the events of today in the morning. No headaches noted double vision no changes swelling no focal weakness. Basically loss of memory for those 4 hours. No chest pain or shortness of breath. No palpitation. No tongue biting. Review of systems: GEN.: Tired EYES: None HEENT: None NECK: None RESPIRATORY: None CARDIOVASCULAR: None GASTROINTESTINAL: None GENITOURINARY: None MUSCULOSKELETAL: Joint pains LYMPHATICS: None HEMATOLOGICAL: None PSYCHIATRY: None NEUROLOGICAL: [As above Past medical history to include: GERD, hypertension, obstructive sleep apnea, TIA 9073, depression, gastric bypass surgery Social history: Lives alone. No history smoking alcohol. Physical examination: VITAL SIGNS: 98, 74, 16, 1 28 x 86, 98% room air GENERAL: [46.6, sitting aphasia., Comfortable EYES: Pupils equal. Conjunctiva normal. HEENT: External appearance of nose and ears normal, oral cavity grossly normal. NECK: JVD not raised; masses not palpable. HEART: First and second heart sounds are normal; no edema. LUNGS: Respiratory rate normal; clear to auscultation. ABDOMEN: Soft, nontender, liver spleen not palpable, no masses palpable. PSYCH: Alert and oriented x3; mood and affect normal. NEUROLOGICAL: Cranial nerves grossly intact; no facial asymmetry, power and sensation grossly intact. LYMPHATICS: No lymph nodes palpable in the axilla and neck INVESTIGATIONS, reviewed in the clinical context: White count 7 hemoglobin 14.4 platelets 193 potassium 4.6 creatinine 0.86 LDL 48 EKG tracing personally reviewed by me-normal sinus rhythm Chest x-ray film personally reviewed by me-cardiomegaly Computed tomography scan of the brain-mild atrophy CT angiogram of the neck and brain both negative Assessment: -This is a patient with a 4 hour episode of loss of memory. What is known as transient global and mesial presented his factors being cemented for TIA and stroke. There were no focal symptoms. Patient has fully recovered. Also neurological workup has been negative. -Morbid obesity BMI 46.6 -GERD -Essential hypertension -Obstructive sleep apnea uses CPAP -Gastric bypass surgery history of -Depression otherwise specified Plan: Patient be treated with aspirin and Plavix. Also dose of Lipitor been increased. Home medications to be resumed. Patient was seen by neurology Dr. Alfaro. He also ordered EEG. 2-D echo pending. Care was discussed the patient. Question also. Answered Past Medical History Past Medical History: CVA/TIA, GERD/Reflux, Hypertension, Sleep Apnea/CPAP/BIPAP Additional Past Medical History / Comment(s): MITRAL VALVE PROLAPSE, TIA 1973-NO RESIDUAL. USES CPAP. History of Any Multi-Drug Resistant Organisms: MRSA Date of last positivie culture/infection: 09/2018 MDRO Source:: NASAL SWAB Past Surgical History: Bariatric Surgery, Bladder Surgery, Cholecystectomy, Hysterectomy, Joint Replacement, Orthopedic Surgery Additional Past Surgical History / Comment(s): GASTRIC BYPASS. SVEN CATARACTS. COLONOSCOPY, EGD. TKR left knee Sep 2018 & 01/2019 Past Anesthesia/Blood Transfusion Reactions: No Reported Reaction Additional Past Anesthesia/Blood Transfusion Reaction / Comment(s): no hx blood transfusion Past Psychological History: Depression Past Alcohol Use History: None Reported Past Drug Use History: None Reported - Past Family History Sister(s) Family Medical History: Cancer, Hypertension Additional Family Medical History / Comment(s): COLON CA Mother Family Medical History: Cancer, Diabetes Mellitus, Hypertension Additional Family Medical History / Comment(s): CERVICAL Father Family Medical History: Hypertension Brother(s) Family Medical History: Congestive Heart Failure (CHF), Hypertension Medications and Allergies Home Medications Medication Instructions Recorded Confirmed Type Ascorbic Acid [Vitamin C] 1,000 mg PO HS 01/02/18 03/06/20 History Aspirin [Adult Low Dose Aspirin EC] 81 mg PO DAILY@1200 01/02/18 03/06/20 History Cholecalciferol [Vitamin D3 (25 3,000 unit PO QAM 01/02/18 03/06/20 History Mcg = 1000 Iu)] Ferrous Sulfate [Iron (65 MG 325 mg PO HS 01/02/18 03/06/20 History Elemental)] Multivitamins, Thera [Multivitamin 1 tab PO BID 01/02/18 03/06/20 History (formulary)] Potassium Chloride ER [K-Dur 20] 20 meq PO DAILY@1200 01/02/18 03/06/20 History lisinopriL [Zestril] 10 mg PO BID 01/02/18 03/06/20 History Fluticasone Nasal [place] [Flonase 2 spr EA NOSTRIL HS 09/01/18 03/06/20 History Nasal [place]] Krill Oil 500 mg PO DAILY@1200 09/01/18 03/06/20 History buPROPion HCL [Wellbutrin SR] 150 mg PO BID 09/01/18 03/06/20 History Levothyroxine Sodium 112 mcg PO DAILY 09/07/18 03/06/20 History Calcium Citrate 600mg Tab 1 tab PO BID 03/06/20 03/06/20 History Omeprazole 20 mg PO HS 03/06/20 03/06/20 History Atorvastatin Calcium [Lipitor] 40 mg PO HS #30 tablet 03/07/20 Rx Clopidogrel Bisulfate [Plavix] 75 mg PO DAILY #30 tab 03/07/20 Rx Allergies Allergy/AdvReac Type Severity Reaction Status Date / Time Tetracyclines Allergy Anaphylaxis Verified 03/06/20 19:04 Physical Exam Vitals: Vital Signs Temp Pulse Pulse Resp BP BP Pulse Ox 03/07/20 09:00 96.2 F L 65 20 137/92 100 03/07/20 03:00 97.8 F 66 18 102/49 96 03/06/20 22:00 68 18 107/56 93 L 03/06/20 21:00 63 12 97/55 94 L 03/06/20 20:00 67 13 110/75 94 L 03/06/20 19:00 72 11 L 114/101 93 L 03/06/20 18:50 97.6 F 80 18 166/78 96 03/06/20 18:36 64 20 126/92 96 03/06/20 16:53 78 18 140/89 98 03/06/20 16:32 128/86 03/06/20 15:38 98 F 74 16 204/88 98 Intake and Output 08/03/20 08/04/20 08/04/20 22:59 06:59 14:59 Intake Total 240 240 Balance 240 240 Intake: Oral 240 240 Other: # Voids 1 0 Weight 98.883 kg 115.666 kg Results CBC & Chem 7: 03/06/20 16:16 03/06/20 16:16 Labs: Abnormal Lab Results - Last 24 Hours (Table) 03/06/20 03/06/20 Range/Units 16:16 16:16 APTT 21.3 L (22.0-30.0) sec BUN 29 H (7-17) mg/dL Glucose 101 H (74-99) mg/dL Thrombosis Risk Factor Assmnt - Choose All That Apply Each Factor Represents 1 point: Obesity (BMI >25) Each Risk Factor Represents 2 Points: Age 61-74 years Thrombosis Risk Factor Assessment Total Risk Factor Score: 3 Thrombosis Risk Factor Assessment Level: Moderate Risk
--- NOTE | 2020-03-07 19:26 | P.DS ---
Providers Date of admission: 03/06/20 18:18 Expected date of discharge: 03/07/20 Attending physician: Thia Mehta Consults: 03/06/20 18:18 Consult Physician Urgent Consulting Provider: Jonathan Alfaro Consult Reason/Comments: acute encephalopathy, suspected TIA Do you want consulting provider notified?: Yes Primary care physician: Philippe Sam [facility] Course: Chief Complaint: Loss of memory for events History of presenting complaint: This is a pleasant [address] Vargas. Chronic stable medical conditions include GERD, hypertension, obstructive sleep apnea using BiPAP, mitral valve prolapse, TIA in 1973 with noticeable up. History of gastric bypass surgery. Depression. Patient sitting at a computer yesterday and she does not really remember the events for the next 4 hours. What transpired was that she called up her sister and apparently was talking a bit on. Sister Jose ordered taken of the ER. In the process of getting the hospital at least 6 days patient noted of posterior look for the confidence to make sure nothing was day. Remembering the same. Only Patient remember was directly being in the hospital. She also r emember the events of today in the morning. No headaches noted double vision no changes swelling no focal weakness. Basically loss of memory for those 4 hours. No chest pain or shortness of breath. No palpitation. No tongue biting. Computed tomography scan of brain, CT angiogram of the brain and neck, 2-D echocardiogram, EEG were all negative. Patient was cemented all G. Cleared for discharge. Patient is back to baseline. Patient put on aspirin and Plavix and increased dose of Lipitor 40 mg daily at bedtime. Plavix in addition to aspirin for 3 weeks. Consultation: Dr. Alfaro from neurology Physical examination: VITAL SIGNS: 97.6, 75, 20, 24998, 96% room air GENERAL: [BMI 46.6, sitting at the edge of the bed, comfortable EYES: Pupils equal. Conjunctiva normal. HEENT: External appearance of nose and ears normal, oral cavity grossly normal. NECK: JVD not raised; masses not palpable. HEART: First and second heart sounds are normal; no edema. LUNGS: Respiratory rate normal; clear to auscultation. ABDOMEN: Soft, nontender, liver spleen not palpable, no masses palpable. PSYCH: Alert and oriented x3; mood and affect normal. NEUROLOGICAL: Cranial nerves grossly intact; no facial asymmetry, power and sensation grossly intact. INVESTIGATIONS, reviewed in the clinical context: White count 7 hemoglobin 14.4 platelets 193 potassium 4.6 creatinine 0.86 LDL 48 EKG tracing personally reviewed by me-normal sinus rhythm Chest x-ray film personally reviewed by me-cardiomegaly Computed tomography scan of the brain-mild atrophy CT angiogram of the neck and brain both negative 2-D echocardiogram-EF 60-65%. EEG per the nursing staff reported to be negative Assessment: -This is a patient with a 4 hour episode of loss of memory. What is known as transient global amnesia presented with his risk factors being same for for TIA There were no focal symptoms. Patient has fully recovered. Also neurological workup has been negative. -Morbid obesity BMI 46.6 -GERD -Essential hypertension -Obstructive sleep apnea uses CPAP -Gastric bypass surgery history of -Depression otherwise specified -Descending aortic aneurysm 3.9 cm. Follow up with Dr. Simeon as an outpatient. Disposition: Home Patient Condition at Discharge: Stable Plan - Discharge Summary Discharge Rx Participant: No New Discharge Prescriptions: New Atorvastatin Calcium [Lipitor] 40 mg PO HS #30 tablet Clopidogrel Bisulfate [Plavix] 75 mg PO DAILY #30 tab Continue Potassium Chloride ER [K-Dur 20] 20 meq PO DAILY@1200 Multivitamins, Thera [Multivitamin (formulary)] 1 tab PO BID lisinopriL [Zestril] 10 mg PO BID Ferrous Sulfate [Iron (65 MG Elemental)] 325 mg PO HS Aspirin [Adult Low Dose Aspirin EC] 81 mg PO DAILY@1200 Ascorbic Acid [Vitamin C] 1,000 mg PO HS Cholecalciferol [Vitamin D3 (25 Mcg = 1000 Iu)] 3,000 unit PO QAM Krill Oil 500 mg PO DAILY@1200 Fluticasone Nasal [place] [Flonase Nasal [place]] 2 spr EA NOSTRIL HS buPROPion HCL [Wellbutrin SR] 150 mg PO BID Levothyroxine Sodium 112 mcg PO DAILY Calcium Citrate 600mg Tab 1 tab PO BID Omeprazole 20 mg PO HS Discontinued Atorvastatin [Lipitor] 10 mg PO HS Discharge Medication List Ascorbic Acid [Vitamin C] 1,000 mg PO HS 01/02/18 [History] Aspirin [Adult Low Dose Aspirin EC] 81 mg PO DAILY@1200 01/02/18 [History] Cholecalciferol [Vitamin D3 (25 Mcg = 1000 Iu)] 3,000 unit PO QAM 06/01/18 [History] Ferrous Sulfate [Iron (65 MG Elemental)] 325 mg PO HS 01/02/18 [History] Multivitamins, Thera [Multivitamin (formulary)] 1 tab PO BID 01/02/18 [History] Potassium Chloride ER [K-Dur 20] 20 meq PO DAILY@1200 01/02/18 [History] lisinopriL [Zestril] 10 mg PO BID 01/02/18 [History] Fluticasone Nasal [place] [Flonase Nasal [place]] 2 spr EA NOSTRIL HS 09/01/18 [History] Krill Oil 500 mg PO DAILY@1200 09/01/18 [History] buPROPion HCL [Wellbutrin SR] 150 mg PO BID 09/01/18 [History] Levothyroxine Sodium 112 mcg PO DAILY 09/07/18 [History] Calcium Citrate 600mg Tab 1 tab PO BID 03/06/20 [History] Omeprazole 20 mg PO HS 03/06/20 [History] Atorvastatin Calcium [Lipitor] 40 mg PO HS #30 tablet 03/07/20 [Rx] Clopidogrel Bisulfate [Plavix] 75 mg PO DAILY #30 tab 03/07/20 [Rx] Follow up Appointment(s)/Referral(s): Clarice Simeon MD [STAFF PHYSICIAN] - 2 Weeks (aortic aneurysm) Philippe Vargas DO [Primary Care Provider] - 1-2 days Chente Jacobson MD [Medical Doctor] - 4 Weeks
--- NOTE | 2020-03-07 19:37 | EEG ---
ELECTROENCEPHALOGRAM REPORT DATE OF SERVICE: 03/07/2020 CLINICAL HISTORY: This is a 70-year-old female with was admitted to the hospital on 03/06/2020 because she had an episode where she could not get her words out and did not recall that event. The whole episode lasted for 4 hours. This EEG was obtained to evaluate for seizures and epileptiform activity. EEG TYPE: This is a routine 21-channel EEG that was performed with video using the 10-20 electrode placement system. DESCRIPTION: Wakefulness, drowsiness and stage II sleep are obtained. During wakefulness there is a posterior-dominant rhythm of low to moderate voltage, reactive, well modulated, of 9 Hz activity. During drowsiness there is slowing and attenuation of the background activity. During stage II there are sleep spindles and K-complexes. Interictal and ictal: None. ACTIVATION PROCEDURE: Photic stimulation did not evoke a posterior driving response. Hyperventilation was not performed because of the patient's clinical history. EEG DIAGNOSIS: This is a normal routine EEG. CLINICAL INTERPRETATION: This is a normal routine awake, drowsy and sleep study. There is no focal slowing noted during the study. There is no epileptiform or seizure activity during the study. Clinical interpretation is recommended. MMODL / IJN: [id number] /
[2020-03-07] MEDS ORDERED: FERROUS SULFATE 325 MG TAB PO SCH (21:00)
[2020-03-07] MEDS ORDERED: PANTOPRAZOLE 40 MG TABLET PO SCH (21:00)
[2020-03-07] MEDS ORDERED: ATORVASTATIN 10 MG TAB PO SCH (21:00)
[2020-03-07] MEDS ORDERED: ASCORBIC ACID 500 MG TAB PO SCH (21:00)
== END 2020-03-07 19:54 | disposition home or self-care (01) ==
LOC: EC 15:37 → 3NCARDOBS 18:18 → 3SCARD 03-07 00:44
PROVIDERS: ADMIT Hospitalist; ATTEND Hospitalist
DX: G45.4 Transient global amnesia (principal); R47.01 Aphasia; R51 Headache; I71.9 Aortic aneurysm of unspecified site, without rupture; E66.01 Morbid (severe) obesity due to excess calories; K21.9 Gastro-esophageal reflux disease without esophagitis; I10 Essential (primary) hypertension; G47.33 Obstructive sleep apnea (adult) (pediatric); F32.9 Major depressive disorder, single episode, unspecified; I34.1 Nonrheumatic mitral (valve) prolapse; G31.9 Degenerative disease of nervous system, unspecified; F02.80 Dementia in other diseases classified elsewhere, unspecified severity, without behavioral disturbance, psychotic disturbance, mood disturbance, and anxiety; Z68.42 Body mass index [BMI] 45.0-49.9, adult; Z03.818 Encounter for observation for suspected exposure to other biological agents ruled out; Z86.73 Personal history of transient ischemic attack (TIA), and cerebral infarction without residual deficits; Z79.82 Long term (current) use of aspirin; Z79.899 Other long term (current) drug therapy; Z79.890 Hormone replacement therapy; Z88.1 Allergy status to other antibiotic agents; Z99.89 Dependence on other enabling machines and devices; Z86.14 Personal history of Methicillin resistant Staphylococcus aureus infection; Z98.84 Bariatric surgery status; Z98.890 Other specified postprocedural states; Z90.49 Acquired absence of other specified parts of digestive tract; Z90.710 Acquired absence of both cervix and uterus; Z96.652 Presence of left artificial knee joint; Z98.41 Cataract extraction status, right eye; Z98.42 Cataract extraction status, left eye; Z80.0 Family history of malignant neoplasm of digestive organs; Z80.49 Family history of malignant neoplasm of other genital organs; Z82.49 Family history of ischemic heart disease and other diseases of the circulatory system; Z83.3 Family history of diabetes mellitus
CPT/HCPCS: 96372; 99285; 95816; 93005; 93306; 92523; 80061; 80053; 84443; 84484; 85025; 85610; 85730; 71046; 70496; 70450; 70498; G0378 ×2; U0003; S0106; J1650; Q9967

== ENCOUNTER → 2020-04-14 | Outpatient (CLI) | payer MEDICARE | END | disposition home or self-care (01) | LOC: RADCTMAIN 17:56 | PROVIDERS: ATTEND Family Medicine | DX: Z53.9 Procedure and treatment not carried out, unspecified reason (principal) ==

== ENCOUNTER → 2020-04-25 | Day surgery (SDC) | payer MEDICARE | LOC: CATHCVL 12:59 | PROVIDERS: ATTEND Family Medicine | DX: I71.9 Aortic aneurysm of unspecified site, without rupture (principal); Z90.710 Acquired absence of both cervix and uterus; Z83.3 Family history of diabetes mellitus; Z82.49 Family history of ischemic heart disease and other diseases of the circulatory system; Z82.62 Family history of osteoporosis; Z82.3 Family history of stroke; Z83.42 Family history of familial hypercholesterolemia; Z80.0 Family history of malignant neoplasm of digestive organs; Z83.49 Family history of other endocrine, nutritional and metabolic diseases; Z79.82 Long term (current) use of aspirin; Z79.02 Long term (current) use of antithrombotics/antiplatelets; Z79.890 Hormone replacement therapy; Z79.899 Other long term (current) drug therapy; Z88.6 Allergy status to analgesic agent; Z88.1 Allergy status to other antibiotic agents; H18.51 Endothelial corneal dystrophy; M19.90 Unspecified osteoarthritis, unspecified site; G47.30 Sleep apnea, unspecified; K90.9 Intestinal malabsorption, unspecified; I10 Essential (primary) hypertension; I34.1 Nonrheumatic mitral (valve) prolapse; E03.9 Hypothyroidism, unspecified; E04.1 Nontoxic single thyroid nodule; Z98.84 Bariatric surgery status; Z90.49 Acquired absence of other specified parts of digestive tract; Z98.890 Other specified postprocedural states; R41.3 Other amnesia | CPT/HCPCS: 36410; 76937; 82565; 84520 ==

== ENCOUNTER → 2020-04-25 | Outpatient (CLI) | payer MEDICARE ==
--- NOTE | 2020-04-25 14:59 | CT ---
EXAMINATION TYPE: CT angio chest DATE OF EXAM: 04/25/2020 2:48 PM COMPARISON: Compared none HISTORY: Thoracic aortic aneurysm. CT DLP: 1272.6 mGycm Automated exposure control for dose reduction was used. CONTRAST: CTA scan of the thorax is performed without and with IV Contrast, patient injected with 100ml mL of I sovue 370, pulmonary embolism protocol. . FINDINGS: LUNGS: Calcified granuloma within the right middle lobe measuring 3 mm. Additional 2 mm subpleural no dule right upper lobe axial image 20. No consolidative pneumonia, pleural effusion or pneumothorax. MEDIASTINUM: There is a 4.3 x 4 cm ascending aortic aneurysm. Mild atherosclerotic changes of the aor ta. Descending thoracic aorta of normal caliber. No evidence of dissection. Heart size normal. No pathologic adenopathy. Calcified lymph nodes in the hilum. Findings compatible with previous granulomatous disease OTHER: Hypertrophic and degenerative change of the spine. Postcholecystectomy changes noted. There i s a left adrenal nodule measuring 30 Hounsfield units with an indeterminant. Measures 1.9 cm. Postsur gical change in the epigastrium. IMPRESSION: 1. There is a 4.3 x 4 cm ascending thoracic aortic aneurysm. 2. Indeterminate 1.9 cm left adrenal nodule. 3. Sub-5 mm pulmonary nodules one of which is calcified and compatible with granuloma. The other nodu les too small to characterize and could be followed with a 12 month follow-up CT scan. Likely benign.
== END | disposition home or self-care (01) ==
LOC: RADCTMAIN 14:03
PROVIDERS: ATTEND Family Medicine
DX: I71.2 Thoracic aortic aneurysm, without rupture (principal); R91.8 Other nonspecific abnormal finding of lung field
CPT/HCPCS: 71275; Q9967

== ENCOUNTER → 2020-09-26 | Outpatient (CLI) | payer MEDICARE ==
--- NOTE | 2020-09-26 14:16 | P.PN ---
Subjective Progress Note Date: 09/26/20 this is a 70-year-old female patient with severe obstructive sleep apnea and an AHI of 75 and she has been diagnosed having AMA many years back. She is currently being treated with CPAP therapy and she is in a APAP mode at a minimum pressure of 8 and a maximum pressure of 12. She is coming in for an annual check. Her last evaluation was in 2019. She is doing well. During this current pandemic, the patient has gained around 15 pounds and her weight is currently up to 271. She is using her CPAP every night. Based on the compliance data, she is been averaging around 5 hours of 54 minutes of APAP use per night and her CPAP use for more than 4 hours is 24 out of 30. No leaks on the mask and the patient is using the airfit P10 small size nasal pillows. No periodic breathing. Her AHI while in treatment is down to 0.9. Her P90 pressure is at 11.7. No hypersomnia and sleepiness during the day. She was recently diagnosed having a TIA and she was hospitalized for that and she is having some issues with memory. She is currently on a combination of aspirin and Plavix. Her BP was noted to be elevated today, however, she claims that at home she has a much better blood pressure control and she is currently on a combination of lisinopril 10 mg and metoprolol 25 mg. She also takes thyroid hormone replacement in the form of levothyroxine 112 g on a daily basis. She is on Wellbutrin 150 mg by mouth twice a day. No chest pain. No nocturnal heartburn. No nocturnal shortness of breath. She is waking up refreshed and alert during the day. She is no complaints. Her current upper score is only at 3. Objective - Exam BP is 166/86, pulse is 71, respirations 12, BMI 49.5, height is 5 feet and 2 inches and weight is 271 pounds. Her current Lincoln score is 3. Saturation 96% on room air. The patient appeared well nourished and normally developed. Vital signs as documented. Head exam is unremarkable. No scleral icterus or corneal arcus noted. Neck is without jugular venous distension, thyromegaly, or carotid bruits. Carotid upstrokes are brisk bilaterally. the patient is a Mallampati class IV and she is obese.Lungs are clear to auscultation and percussion. Cardiac exam reveals the PMI to be normally sized and situated. Rhythm is regular. First and second heart sounds normal. No murmurs, rubs or gallops. Abdominal exam reveals normal bowel sounds, no masses, no organomegaly and no aortic enlargement. Extremities are nonedematous and both femoral and pedal pulses are normal.Examination of the skin revealed no evidence of significant rashes, suspicious appearing nevi or other concerning lesions.Neurologically, t he patient is awake and alert and the patient does not have any focal neurological deficit. Cranial nerves are essentially intact. Assessment and Plan Plan: 1 obstructive sleep apnea, severe with an AHI of 75, successfully treated with a APAP at the pressure minimum of 8 and the maximum of 12. Compliance data was checked. The P90 pressure was at 11.7 and her AHI while on treatment is down to 0.9. 2 hypersomnia, recovered and the patient's upper score is currently down to 3 3 hypertension not and accommodation of lisinopril and metoprolol 4 hypothyroidism 5 history of TIA and the patient is currently on a combination of aspirin and Plavix 6 iron deficiency currently on oral iron supplement 65 mg on a daily basis 7Obesity with a BMI of 49.5 and the patient has gained around 15 pounds since her last evaluation plan Check the compliancy data Recommend increasing the pressure maximum of 14 knowing that the patient's P90 pressure is approaching 12 cm of water which is the currently set maximum pressure Encourage weight loss Refilled the supplies including the nasal pillows Implement good sleep hygiene measures Tighter control of her blood pressure and the patient is currently on a combination of lisinopril and metoprolol and she is going to work with primary care physician in that regard She has a [employer] all degeneration CPAP unit which is in APAP. Her machine is functional. No need for any further adjustments for now. She'll see me back in a year's time for further advice in follow-up.
== END | disposition home or self-care (01) ==
LOC: SLEEP 13:41
PROVIDERS: ATTEND Internal Medicine Critical Care Medicine
DX: G47.33 Obstructive sleep apnea (adult) (pediatric) (principal); G47.10 Hypersomnia, unspecified; I10 Essential (primary) hypertension; E03.9 Hypothyroidism, unspecified; E66.9 Obesity, unspecified; Z68.42 Body mass index [BMI] 45.0-49.9, adult; E61.1 Iron deficiency; Z86.73 Personal history of transient ischemic attack (TIA), and cerebral infarction without residual deficits; Z99.89 Dependence on other enabling machines and devices; Z79.02 Long term (current) use of antithrombotics/antiplatelets; Z79.82 Long term (current) use of aspirin

== ENCOUNTER → 2021-01-15 | Outpatient (CLI) | payer MEDICARE ==
--- NOTE | 2021-01-17 15:11 | MM ---
Reason for exam: screening (asymptomatic). Last mammogram was performed 1 year ago. History: Patient is postmenopausal and is nulliparous. Benign MG stereo VAD BX LT of the left breast, January 28, 2019. Physical Findings: A clinical breast exam by your physician is recommended on an annual basis and results should be correlated with mammographic findings. MG 3D Screening Mammo W/Cad Bilateral CC and MLO view(s) were taken. Prior study comparison: January 11, 2020, bilateral MG 3d screening mammo w/cad. August 09, 2019, left breast MG 3d diag mammo w/cad LT. The breast tissue is almost entirely fat. Finding: There are indeterminate typically benign calcifications in the lower outer quadrant 11-12cm from the nipple. New finding since January 11, 2020 and August 09, 2019. ASSESSMENT: Incomplete: need additional imaging evaluation, BI-RAD 0 RECOMMENDATION: Special view mammogram of the right breast. [facility] will attempt to contact patient to return for supplemental views.
== END | disposition home or self-care (01) ==
LOC: RADMAMWWP 07:04
PROVIDERS: ATTEND Surgery
DX: Z12.31 Encounter for screening mammogram for malignant neoplasm of breast (principal); Z78.0 Asymptomatic menopausal state
CPT/HCPCS: 77063; 77067

== ENCOUNTER → 2021-01-19 | Outpatient (CLI) | payer MEDICARE ==
[2021-01-19 09:37] VITALS: BP 134/78; PULSE 62; RESP 18; TEMP 98.1
--- NOTE | 2021-01-19 09:56 | P.PN ---
Subjective Progress Note Date: 01/19/21 Principal diagnosis: Fibrocystic breast changes Patient is a 70 year old white female was seen initially with a complaint of increasing microcalcification in the left breast. Underwent a stereotactic core biopsy of the left breast on . Pathology revealed benign breast with prominent adipose tissue and fibrocystic changes including fibroadenomatoid hyperplasia. The initial specimen did not reveal calcifications however on deeper cuts focal benign calcifications were noted. She had a repeat left breast mammogram on 1619. This did not show any lesions of concern. It was BIRADS 2 and repeat bilateral mammogram and January 2020 was recommended. She has no history of any trauma to the breast. She has no masses, or pain in the breast. She has no complaints at this time. She is not complaining of any pain masses lumps or nodules in either breast. The patient also has macromastia. This has resulted in shoulder notching however, no back pain at this time. The patient is losing weight Has lost 10 pounds and does not want anything done regarding reduction of the breast until she has lost weight. She has no complaints related to her breast on today's exam. She had a bilateral mammogram on 6919 which was benign BIRADS 2. Repeat bilateral mammogram in 1 year is recommended. 01-19-21 The patient had a bilateral mammogram performed on . This revealed an indeterminate area of microcalcification in the right breast and additional views of the right breast recommended. No lesions of concern were described in the left breast. The patient does not complain of any new lumps masses or nodules in either breast. She is not having any he is treated any recent, or infection of the breast. caffeine: 1 cup coffee and one diet coke/day nicotine: none chocolate: < 2 times/week hormones: none Family History: sister: of colon cancer at 62 mother: cervical cancer Hormonal History: menarche: 14 G0 menopause: 54 BCP: none hormones: none Surgical History: gallbaldder cataract total knee left gastric bypass hysterctomy bladder suspension Medical History: HTN CPAP sleep apnea GERD blisters on her cornea macromastia mitral valve prolapse TIA March 2020, no residual deficient Social History: smoke: none alcohol: none drugs: none - Constitutional Constitutional: Denies chills, Denies fever - EENT Comment: cataract bilateral Eyes: blurred vision, 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 Ears: bilateral: decreased hearing (bilateral hearing aids), deny: tinnitus Ears, nose, mouth and throat: Denies headache, Denies sore throat - Breasts Breasts: bilateral: as per HPI - Cardiovascular Comment: mitral valve regurg since Cardiovascular: Reports high blood pressure - Respiratory Comment: sleep apnea - Gastrointestinal Comment: GERD, s/p cholcystectomy - Genitourinary (Female) Comment: bladder suspension Genitourinary: Denies dysuria, Denies hematuria - Menstruation Comment: left her ovaries Menstruation: Reports post hysterectomy - Musculoskeletal Comment: arthritis both hands, left knee replacement - Integumentary Integumentary: Denies pruritus, Denies rash - Neurological Comment: TIA in 1973 last one; TIA 2019 Neurological: Denies numbness, Denies weakness - Psychiatric Psychiatric: Reports depression - Endocrine Comment: hypothyroid Endocrine: Denies fatigue, Denies weight change - Hematologic/Lymphatic Comment: baby aspirin Objective - Vital Signs Vital signs: Vital Signs Temp 98.1 F 01/19/21 09:34 Pulse 62 01/19/21 09:34 Resp 18 01/19/21 09:34 BP 134/78 01/19/21 09:34 Pulse Ox 100 01/19/21 09:34 Intake & Output 01/18/21 01/19/21 01/19/21 18:59 06:59 18:59 Weight 112.945 kg - Exam BMI 45.5 - Constitutional General appearance: Present: cooperative - EENT Eyes: Present: EOMI ENT: Present: hearing grossly normal - Neck Neck: Present: normal ROM - Respiratory Respiratory: bilateral: CTA - Cardiovascular Rhythm: regular Heart sounds: normal: S1, S2 - Gastrointestinal General gastrointestinal: Present: soft - Integumentary Integumentary Comment(s): round erythematous lesions at the left ankle Integumentary: Present: normal turgor - Musculoskeletal Musculoskeletal: Present: gait normal - Psychiatric Psychiatric: Present: A&O x's 3, appropriate affect, intact judgment & insight - Additional findings Additional findings: Breast exam: BRA: 44D inspection: grade 3 bilateral palpation: right breast: Multiple positional exam fibrocystic changes, no dominant masses or nodules of concern Right axilla: No adenopathy of concern Left breast: Multiple positional exam fibrocystic changes, no dominant masses or nodules of concern, there is a fungal infection under the left breast Left axilla: No adenopathy of concern Assessment and Plan Assessment: Impression: HTN CPAP sleep apnea GERD blisters on her cornea macromastia mitral valve prolapse TIA March 2020, no residual deficient Fibrocystic breast changes Abnormal right breast mammogram Skin lesion left medial ankle Plan: 1. Diagnostic right breast mammogram views 2. Repeat left breast mammogram in 1 year 3. Follow-up after diagnostic right breast mammogram views 4. Patient is going to see mobile therapist regarding the skin lesion on her left ankle 5. Antifungal cream under left breast CC: Dr. Vargas
== END ==
LOC: WWCWWP 09:27
PROVIDERS: ATTEND Surgery
DX: N60.11 Diffuse cystic mastopathy of right breast (principal); N60.12 Diffuse cystic mastopathy of left breast; R92.8 Other abnormal and inconclusive findings on diagnostic imaging of breast; I10 Essential (primary) hypertension; G47.30 Sleep apnea, unspecified; K21.9 Gastro-esophageal reflux disease without esophagitis; I34.1 Nonrheumatic mitral (valve) prolapse; N62 Hypertrophy of breast; H18.899 Other specified disorders of cornea, unspecified eye; Z86.73 Personal history of transient ischemic attack (TIA), and cerebral infarction without residual deficits; L98.9 Disorder of the skin and subcutaneous tissue, unspecified; Z88.1 Allergy status to other antibiotic agents

== ENCOUNTER → 2021-01-22 | Outpatient (CLI) | payer MEDICARE ==
--- NOTE | 2021-01-22 10:59 | MM ---
Reason for exam: additional evaluation requested from abnormal screening. Last mammogram was performed less than 1 month ago. History: Patient is postmenopausal and is nulliparous. Benign MG stereo VAD BX LT of the left breast, January 28, 2019. Physical Findings: Nurse did not find any significant physical abnormalities on exam. MG 3D Work Up W/Cad RT CC with magnification, ML with magnification, and ML view(s) were taken of the right breast. Prior study comparison: January 15, 2021, bilateral MG 3d screening mammo w/cad. January 11, 2020, bilateral MG 3d screening mammo w/cad. August 09, 2019, left breast MG 3d diag mammo w/cad LT. There is a 0.1 x 0.2 x 0.2cm grouping of coarse heterogeneous calcifications in the slightly lower, slightly outer breast at middle depth and stereotactic core biopsy is recommended. These results were verbally communicated with the patient and result sheet given to the patient on 01/22/21. ASSESSMENT: Suspicious, BI-RAD 4 RECOMMENDATION: Stereotactic core biopsy of the right breast. Called Dr. Conner's office with mammographic findings. Biopsy scheduled for 02/01/21 at 8:00. PRELIMINARY REPORT CALLED AND FAXED TO DR. CONNER ON 01/22/21.
== END | disposition home or self-care (01) ==
LOC: RADMAMWWP 08:58
PROVIDERS: ATTEND Surgery
DX: R92.1 Mammographic calcification found on diagnostic imaging of breast (principal); Z78.0 Asymptomatic menopausal state
CPT/HCPCS: 77065; G0279; 77061

== ENCOUNTER → 2021-02-01 | Day surgery (SDC) | payer MEDICARE ==
[2021-02-01 07:16] VITALS: RESP 16; TEMP 98.2
[2021-02-01 08:46] VITALS: BP 119/66; PULSE 59
--- NOTE | 2021-02-01 16:01 | P.PCN ---
Date of Procedure: 02/01/21 Preoperative Diagnosis: Right breast mammographic abnormality/microcalcifications Postoperative Diagnosis: Same Procedure(s) Performed: Right breast stereotactic core biopsy Anesthesia: local Surgeon: Ana Conner Pathology: other (Breast tissue with microcalcifications of concern noted in specimen) Condition: stable Disposition: same day Indications for Procedure: Microcalcifications of concern right breast on mammogram Operative Findings: Radiographic specimen reveals microcalcifications of concern had been removed Description of Procedure: Symone is a 70-year-old white female who was noted to have microcalcifications of concern in her right breast mammogram. Stereotactic core biopsy was recommended. Risks and benefits of the procedure were discussed with the patient. Risks include but are not limited to bleeding, infection, reaction to the anesthetic. Options such as watchful waiting or open resection were not recommended. The patient understood the risk and benefits and wished to proceed. The patient presented to the stereotactic core biopsy room. She was positioned prone on the low rad table. A sales and business development manager film was obtained. A CC from below approach was utilized. The area of concern was identified. The lesion was targ eted. The breast was prepped using Betadine. 20 mL of 1% lidocaine were used to anesthetize the area of concern. A 9-gauge vacuum-assisted core rotating biopsy needle was driven to the correct coordinates. 9 specimens were obtained. Radiograph of the specimen revealed the area of concern had been removed. The area and the breast was irrigated. Hemostasis was attained. A secure marked top at clip was placed. The patient tolerated procedure in stable condition. She will follow-up with Dr. Tinajero next week. The specimen was sent to pathology.
--- NOTE | 2021-02-02 14:45 | MM ---
EXAMINATION TYPE: MG stereo VAD BX RT DATE OF EXAM: 02/01/2021 COMPARISON: 01/22/2021 CLINICAL HISTORY: Stereotactic biopsy of calcifications by Dr. Lior Taylor TECHNIQUE: Stereotactic guided core biopsy of Right breast. FINDINGS: The procedure of stereotactic guided core biopsy was explained to the patient. Benefits, a lternatives, and risks were discussed. An informed consent was then obtained. The shortness pathway for biopsy was chosen. Shortness pathway was cc approach from below. I perform ed the localization, then surgeon, Dr. Lior Taylor performed the remainder of the procedure. A vacuum assisted biopsy gun was used to obtain multiple core samples. The patient tolerated the procedure well without any immediate complication. The patient was kept in the radiology department for short stay after the procedure and then discharged home in stable condi tion. Targeted calcifications are identified in specimen mammogram. Post biopsy mammogram shows the clip to appear in satisfactory position relative to the targeted area of concern on the preprocedure images. IMPRESSION: SUCCESSFUL, UNCOMPLICATED STEREOTACTIC GUIDED CORE BIOPSY OF AREA OF CONCERN IN THE RIGHT BREAST, FUL L PATHOLOGY RESULTS TO FOLLOW.
== END ==
LOC: RADMAMWWP 06:55
PROVIDERS: ATTEND Surgery
DX: N60.11 Diffuse cystic mastopathy of right breast (principal); R92.0 Mammographic microcalcification found on diagnostic imaging of breast; Z88.1 Allergy status to other antibiotic agents
CPT/HCPCS: 88305; 19081; A4648; J2001

== ENCOUNTER → 2021-02-08 | Outpatient (CLI) | payer MEDICARE ==
[2021-02-08 15:27] VITALS: BP 128/76; PULSE 58; RESP 18; TEMP 98.2
--- NOTE | 2021-02-08 15:36 | P.PN ---
Progress Note - Text Progress Note Date: 02/08/21 Symone is a 71-year-old white female status post attempted core biopsy of the right breast and 7121. Pathology was benign and showed some microcalcifications. This is felt to be benign specific and concordant. The patient tolerated the procedure without difficulty. Physical examination: Biopsy site clean and dry no evidence of infection or hematoma Impression: 1. Fibrocystic breast changes right breast Plan: Right breast mammogram in 6 months with physician exam at that time CC: Dr. Vargas
== END ==
LOC: WWCWWP 15:16
PROVIDERS: ATTEND Surgery
DX: N60.11 Diffuse cystic mastopathy of right breast (principal); Z88.1 Allergy status to other antibiotic agents

== ENCOUNTER → 2021-05-01 | Outpatient (CLI) | payer MEDICARE ==
[2021-05-01 11:00] LABS: African American GFR (CKD) >90 (>60 ml/min/1.73 sqM); Blood Urea Nitrogen 24 mg/dL (7-17); Non-African American GFR(CKD) 79 (>60 ml/min/1.73 sqM)
--- NOTE | 2021-05-01 11:50 | CT ---
E EXAMINATION TYPE: CT angio chest DATE OF EXAM: 05/01/2021 COMPARISON: 04/25/2020 HISTORY: Thoracic aortic aneurysm without rupture CT DLP: 447 mGycm CONTRAST: CTA thoracic aorta with 3-D reconstruction is performed and with IV Contrast, patient injected with 1 00 mL of Isovue 370. Contrast CTA of the thoracic aorta was performed from the lung apex through the upper abdomen. 3D re construction imaging obtained at a separate workstation. CT Chest: THORACIC AORTA: Stable ascending thoracic aortic aneurysm measuring 4.2 cm AP dimension versus 4.3 cm previously. Mild atheromatous changes seen. There is no evidence for dissection or periaortic colle ction. LUNGS: The lungs are clear and free of infiltrate or atelectasis. No pulmonary nodule or mass is det ected. No pleural effusion or CT evidence of interstitial lung disease. MEDIASTINUM: No evidence for mediastinal hematoma. The heart is not enlarged. No evidence for med iastinal mass or adenopathy. HILAR STRUCTURES: No evidence for mass. No hilar adenopathy is appreciated. OTHER: No significant abnormality. IMPRESSION- Stable ascending thoracic aortic aneurysm measuring 4.2 cm AP dimension versus 4.3 cm previously.
== END | disposition home or self-care (01) ==
LOC: RADCTMAIN 10:10
PROVIDERS: ATTEND Surgery
DX: I71.2 Thoracic aortic aneurysm, without rupture (principal)
CPT/HCPCS: 82565; 84520; 71275; 36415; Q9967

== ENCOUNTER → 2021-08-06 | Outpatient (CLI) | payer MEDICARE ==
--- NOTE | 2021-08-06 11:01 | MM ---
Reason for exam: follow-up at short interval from prior study. Last mammogram was performed 6 months ago. History: Patient is postmenopausal and is nulliparous. Benign MG stereo VAD BX RT of the right breast, February 01, 2021. Benign MG stereo VAD BX LT of the left breast, January 28, 2019. Physical Findings: Nurse did not find any significant physical abnormalities on exam. MG 3D Diag Mammo W/Cad RT CC and MLO view(s) were taken of the right breast. Prior study comparison: January 15, 2021, bilateral MG 3d screening mammo w/cad. January 11, 2020, bilateral MG 3d screening mammo w/cad. There are scattered fibroglandular densities. There is chronic nodularity in the right breast. Previous mammotome biopsy in the right breast. There is no discrete abnormality. ASSESSMENT: Benign, BI-RAD 2 RECOMMENDATION: Return to routine screening mammogram schedule for both breasts. Back on schedule for January 2022.
== END | disposition home or self-care (01) ==
LOC: RADMAMWWP 10:04
PROVIDERS: ATTEND Surgery
DX: R92.8 Other abnormal and inconclusive findings on diagnostic imaging of breast (principal); Z78.0 Asymptomatic menopausal state
CPT/HCPCS: 77065; G0279; 77061

== ENCOUNTER → 2021-08-09 | Outpatient (CLI) | payer MEDICARE ==
[2021-08-09 12:15] VITALS: BP 132/84; PULSE 55; RESP 16; TEMP 98.1
--- NOTE | 2021-08-09 12:19 | P.PN ---
Subjective Progress Note Date: 08/09/21 Principal diagnosis: fibrocystic breast changes Fibrocystic breast changes Patient is a 71 year old white female was seen initially with a complaint of increasing microcalcification in the left breast. Underwent a stereotactic core biopsy of the left breast on . Pathology revealed benign breast with prominent adipose tissue and fibrocystic changes including fibroadenomatoid hyperplasia. The initial specimen did not reveal calcifications however on deeper cuts focal benign calcifications were noted. She had a repeat left breast mammogram on 1619. This did not show any lesions of concern. The patient had a bilateral mammogram performed on . This revealed an indeterminate area of microcalcification in the right breast and additional views of the right breast recommended. No lesions of concern were described in the left breast. She had a right breast stero biopsy on 02-01-21 which was benign. She underwent a right breast mammogram and 1320 which was benign BIRADS 2. She has no complaints of any lumps masses or nodules in either breast today. She does not complain of any nipple discharge or skin changes. The patient also has macromastia. This has resulted in shoulder notching however, no back pain at this time. The patient is losing weight Has lost 75 pounds and does not want anything done regarding reduction of the breast until she has lost weight. She has no complaints related to her breast on today's exam. caffeine: 1 cup coffee and one diet coke/day nicotine: none chocolate: < 2 times/week hormones: none Family History: sister: of colon cancer at 62 mother: cervical cancer Hormonal History: menarche: 14 G0 menopause: 54 BCP: none hormones: none Surgical History: gallbaldder cataract total knee left gastric bypass hysterctomy bladder suspension Medical History: HTN CPAP sleep apnea GERD blisters on her cornea macromastia mitral valve prolapse TIA March 2020, no residual deficient lost 75 pounds total intentional Social History: smoke: none alcohol: none drugs: none - Constitutional Constitutional: Denies chills, Denies fever - EENT Comment: cataract bilateral Eyes: blurred vision, 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 Ears: bilateral: decreased hearing (bilateral hearing aids), deny: tinnitus Ears, nose, mouth and throat: Denies headache, Denies sore throat - Breasts Breasts: bilateral: as per HPI - Cardiovascular Comment: mitral valve regurg since Cardiovascular: Reports high blood pressure - Respiratory Comment: sleep apnea - Gastrointestinal Comment: GERD, s/p cholcystectomy - Genitourinary (Female) Comment: bladder suspension Genitourinary: Denies dysuria, Denies hematuria - Menstruation Comment: left her ovaries Menstruation: Reports post hysterectomy - Musculoskeletal Comment: arthritis both hands, left knee replacement - Integumentary Integumentary: Denies pruritus, Denies rash - Neurological Comment: TIA in 1973 last one; TIA 2019 Neurological: Denies numbness, Denies weakness - Psychiatric Psychiatric: Reports depression - Endocrine Comment: hypothyroid Endocrine: Denies fatigue, Denies weight change - Hematologic/Lymphatic Comment: baby aspirin Objective - Exam BMI 41.2 - Constitutional General appearance: Present: cooperative - EENT Eyes: Present: EOMI ENT: Present: hearing grossly normal - Neck Neck: Present: normal ROM - Respiratory Respiratory: bilateral: CTA - Cardiovascular Heart sounds: normal: S1, S2 - Gastrointestinal General gastrointestinal: Present: soft - Integumentary Integumentary: Present: normal turgor - Musculoskeletal Musculoskeletal: Present: gait normal - Psychiatric Psychiatric: Present: A&O x's 3, appropriate affect, intact judgment & insight - Additional findings Additional findings: Breast Exam: BRA: 44D Inspection: grade 3 ptosis bilateral, right breast larger than left breast, bilateral shoulder notching Palpation: Right breast: Multiple positional exam fibrocystic changes no dominant masses or nodules of concern Right axilla: No adenopathy of concern Left breast: Multi-positional exam fibrocystic changes no dominant masses or nodules of concern Left axilla: No adenopathy of concern Assessment and Plan Assessment: Impression: Macromastia Asymmetry right breast larger than left breast Recent right breast mammogram benign BIRADS 2 Fibrocystic breast changes Patient has lost 75 pounds Plan: Repeat bilateral mammogram in 6 months with physician exam at that time Patient is continuing to lose weight and after she has completed may consider breast reduction CC: Dr. Vargas
== END ==
LOC: WWCWWP 11:25
PROVIDERS: ATTEND Surgery
DX: N62 Hypertrophy of breast (principal); N60.11 Diffuse cystic mastopathy of right breast; I10 Essential (primary) hypertension; K21.9 Gastro-esophageal reflux disease without esophagitis; Z86.73 Personal history of transient ischemic attack (TIA), and cerebral infarction without residual deficits; Z88.1 Allergy status to other antibiotic agents

== ENCOUNTER → 2021-10-30 | Outpatient (CLI) | payer MEDICARE ==
--- NOTE | 2021-10-30 14:11 | P.PN ---
Subjective Progress Note Date: 10/30/21 On today's evaluation of 10/30/2021, seeing this patient in a follow-up regarding her obstructive sleep apnea. Noted the patient has severe AMA with an AHI of 75 and this was diagnosed many years back. The patient has been managed with a CPAP unit. She has an older generation Resp[employer]ics CPAP unit which is set at a pressure minimum of 8 and a maximal 14 in the APAP mode. Her machine is functional and the patient is doing well. Most recently, the patient has enrolled herself in to the ketogenic diet and she has lost significant amount of weight. She is currently using approximately 5 pounds on a monthly basis. She is to around 175 pounds last years and currently she is down to 227 pounds pH is feeling great. Note that the average pressure delivered by the machine is less. The P9 to pressure on her CPAP unit is around 10.5 compared to a number that was quite higher last year. The patient has been averaging around 5 hours and 6 minutes of APAP use per night. Her AHI is down to 1.1. She is using the Airfit P10 and nasal pillows.. The patient is interested in updating her CPAP unit. I thought this was reasonable to repeat her study, at least to home sleep study to reevaluate the presence and severity of sleep apnea and decide if ongoing treatment is needed. Obviously, her previous machine is on a recall and she is interested in updating her CPAP unit. Otherwise, the rest of the comorbidities are all inactive and stable. The patient has hypothyroidism, hypertension, and previous history of TIA and all of these comorbid conditions are inactive and stable at this point in time. Her current Reno score is down to 7. Objective - Exam the BP is 123/79 with a pulse of 63 respirations 16 and temperature is 97.0 and the saturation is 99% on room air. Height is 52 and the weight is around 227 pounds and the patient's Reno score is at 7 The patient appeared well nourished and normally developed. Vital signs as documented. Head exam is unremarkable. No scleral icterus or corneal arcus noted. Neck is without jugular venous distension, thyromegaly, or carotid bruits. Carotid upstrokes are brisk bilaterally. Lungs are clear to auscultation and percussion. Cardiac exam reveals the PMI to be normally sized and situated. Rhythm is regular. First and second heart sounds normal. No murmurs, rubs or gallops. Abdominal exam reveals normal bowel sounds, no masses, no organomegaly and no aortic enlargement. Extremities are nonedematous and both femoral and pedal pulses are normal. Examination of the skin revealed no evidence of significant rashes, suspicious appearing nevi or other concerning lesions. Neurologically, the patient is awake and alert and the patient does not have any focal neurological deficit. Cranial nerves are essentially intact. Assessment and Plan Plan: 1 obstructive sleep apnea, severe at baseline with an AHI of 75 and the patient has been successful treated over the years with an APAP machine at the pressure minimum of 8 and the maximum of 14. Compliance the check was done and the patient seems to be compliant and continues to benefit from treatment. Nevertheless, the patient has lost significant amount of weight and the same time she is very much interested in updating her CPAP machine if needed. 2 hypersomnia improvement in the patient's upper score is down to 7 3 obesity with significant weight loss in order of 50 pounds and current which is down to 227 and the patient is following a ketogenic diet 4 hypertension, well controlled for now 5 hypothyroidism 6. History of TIA 7 iron deficiency plan encourage further weight loss Set up this patient for another home sleep study in February 2022 and this will be needed to do even with the presence of sleep apnea and based on the results we'll decide if and updated CPAP machine will be used for this patient Keep the same mask interface maintaining her sleep hygiene measures Refills will be given Compliance is adequate Clinical response is good and the patient has no major tiredness or sleepiness We'll continue to follow
== END ==
LOC: SLEEP 13:13
PROVIDERS: ATTEND Internal Medicine Critical Care Medicine
DX: G47.33 Obstructive sleep apnea (adult) (pediatric) (principal); Z99.89 Dependence on other enabling machines and devices; E66.9 Obesity, unspecified; I10 Essential (primary) hypertension; E03.9 Hypothyroidism, unspecified; Z86.73 Personal history of transient ischemic attack (TIA), and cerebral infarction without residual deficits; E61.1 Iron deficiency; Z88.1 Allergy status to other antibiotic agents

== ENCOUNTER → 2022-01-23 | Outpatient (CLI) | payer MEDICARE ==
--- NOTE | 2022-01-24 10:56 | MM ---
Reason for Exam: Screening (asymptomatic). Last screening mammogram was performed 12 month(s) ago. Patient History: Menarche at age 13. Patient has no children. Left ovary removed at age 67. Right ovary removed at age 67. Hysterectomy at age 67. Postmenopausal. 02/01/2021, Benign Core Biopsy on the right side. 01/28/2019, Benign Core Biopsy on the left side. Risk Values: Елена 5 year model risk: 3.1%. NCI Lifetime model risk: 9.5%. Prior Study Comparison: 01/15/2021 Bilateral Screening Mammogram, [facility]. 01/22/2021 Right Diagnostic Mammogram, [facility]. 08/06/2021 Right Diagnostic Mammogram, [facility]. Tissue Density: The breast tissue is heterogeneously dense. This may lower the sensitivity of mammography. Findings: Analyzed By CAD. There is no suspicious group of microcalcifications or new suspicious mass in either breast. Stable benign calcifications noted bilaterally. Overall Assessment: Benign, BI-RAD 2 Management: Screening Mammogram of both breasts in 1 year. A clinical breast exam by your physician is recommended on an annual basis and results should be correlated with mammographic findings. Electronically signed and approved by: Ned Bear M.D. Radiologis
== END | disposition home or self-care (01) ==
LOC: RADMAMWWP 07:10
PROVIDERS: ATTEND Family Medicine
DX: Z12.31 Encounter for screening mammogram for malignant neoplasm of breast (principal); Z78.0 Asymptomatic menopausal state
CPT/HCPCS: 77063; 77067

== ENCOUNTER → 2022-05-07 | Outpatient (CLI) | payer MEDICARE | END | disposition home or self-care (01) | LOC: LABPAT 10:39 | PROVIDERS: ATTEND Orthopaedic Surgery | DX: Z01.812 Encounter for preprocedural laboratory examination (principal); M17.11 Unilateral primary osteoarthritis, right knee; Z22.322 Carrier or suspected carrier of Methicillin resistant Staphylococcus aureus | CPT/HCPCS: 87070 ==

== ENCOUNTER → 2022-05-07 | Outpatient (CLI) | payer MEDICARE ==
[2022-05-07 16:10] LABS: Basophils # (A) 0.04 X 10*3/uL (0.00-0.10); Basophils % (A) 0.6 %; Eosinophils # (A) 0.47 X 10*3/uL (0.04-0.35); Eosinophils % (A) 7.6 %; HGB 13.7 g/dL (12.0-15.0); Immature Grans, Automated 0.5 %; Lymphocytes % (A) 24.2 %; MCH 31.9 pg (27.0-32.0); MCHC 32.6 g/dL (32.0-37.0); MCV 97.7 fL (80.0-97.0); Mean Platelet Volume 9.7 fL (9.5-12.2); Monocytes # (A) 0.41 X 10*3/uL (0.20-1.00); Monocytes % (A) 6.6 %; NRBC Per 100 WBC 0 /100 WBCS (0.0-0.0); Neutrophils # (A) 3.75 X 10*3/uL (1.80-7.70); Neutrophils % (A) 60.5 %; Platelet Count 188 X 10*3/uL (140-440); RDW 13.2 % (11.5-14.5)
[2022-05-07 17:40] LABS: % Iron Saturation 29.03 (12.00-45.00); ALT 33 U/L (8-44); AST 25 U/L (13-35); African American GFR (CKD) 69.5 (60.0-200.0); Albumin 3.9 g/dL (3.8-4.9); Albumin/Globulin Ratio 1.98 (1.60-3.17); Alkaline Phosphatase 76 U/L (41-126); BUN/Creat Ratio 24.19 Ratio (12.00-20.00); Blood Urea Nitrogen 23.2 mg/dL (9.0-27.0); Carbon Dioxide 24.4 mmol/L (20.0-27.5); Chloride 105 mmol/L (96-109); Chol/HDL Ratio 2.11 Ratio; Glucose 99 mg/dL (70-110); Iron 88 ug/dL (50-170); LDL Cholesterol,Calculated 43.6 mg/dL (0.0-131.0); Potassium 4.2 mmol/L (3.5-5.5); Sodium 140 mmol/L (135-145); Total Iron Binding Capacity 302 ug/dL (228-460); Total Protein 5.9 g/dL (6.2-8.2); VLDL Calculation 17.02 mg/dL (5.00-40.00)
[2022-05-09 15:07] LABS: Vitamin A 83 ug/dL (38-106)
== END | disposition home or self-care (01) ==
LOC: LABWHC1 10:37
PROVIDERS: ATTEND Family Medicine
DX: G45.9 Transient cerebral ischemic attack, unspecified (principal); Z98.84 Bariatric surgery status; R60.9 Edema, unspecified; E53.8 Deficiency of other specified B group vitamins; I71.20 Thoracic aortic aneurysm, without rupture, unspecified; E55.9 Vitamin D deficiency, unspecified
CPT/HCPCS: 36415; 80053; 80061; 82306; 82607; 83036; 83540; 83550; 84255; 84443; 84590; 84630; 85025

== ENCOUNTER → 2022-05-22 | Outpatient (CLI) | payer MEDICARE ==
--- NOTE | 2022-05-22 11:16 | XR ---
EXAMINATION TYPE: XR chest 2V DATE OF EXAM: 05/22/2022 COMPARISON: 03/06/2020 TECHNIQUE: PA and lateral views submitted. HISTORY: Presurgical testing FINDINGS: The lungs are clear and there is no pneumothorax, pleural effusion, or focal pneumonia. Hypertrophi c degenerative changes spine. Atherosclerotic change aorta. Surgical clips seen in the upper abdomen. IMPRESSION: 1. No acute process.
== END | disposition home or self-care (01) ==
LOC: RADXRMAIN 10:52
PROVIDERS: ATTEND Family Medicine
DX: Z01.818 Encounter for other preprocedural examination (principal); I70.0 Atherosclerosis of aorta
CPT/HCPCS: 71046

== ENCOUNTER 2022-06-10 12:24 | Day surgery (SDC) | payer MEDICARE ==
--- NOTE | 2022-06-09 12:28 | HP ---
HISTORY AND PHYSICAL DATE OF SURGERY: 06/10/2022. HISTORY OF PRESENT ILLNESS: Symone Quintero is a 72-year-old patient seen with symptomatic right knee osteoarthritis. We discussed options for treatment. She elected to proceed with right total knee arthroplasty. Consent obtained. Medical clearance was provided by Dr. Dewey, cardiac clearance by Dr. Stuart. PAST MEDICAL HISTORY: Hypothyroidism, cardiovascular disease, hypertension, and hyperlipidemia. PAST SURGICAL HISTORY: Cataract surgery, cholecystectomy, bypass surgery, hysterectomy, left total knee arthroplasty. DAILY MEDICATIONS: 1. Atorvastatin. 2. Levothyroxine. 3. Lisinopril. 4. Prilosec. 5. Meloxicam. 6. Metoprolol. 7. Plavix. ALLERGIES: Tetracycline. SOCIAL HISTORY: She denies tobacco use. PHYSICAL EVALUATION OF THE RIGHT KNEE: Range of motion is -1/2 to 115. Tenderness medial joint line. Crepitus, medial patellofemoral compartments with range of motion. Pain with patellofemoral compression. Ligaments stable. Hip rotation without pain. Distal neurovascular exam intact. RADIOGRAPHS: Left knee radiographs reveal severe osteoarthritic changes. IMPRESSION: 1. Right knee osteoarthritis. 2. Hyperlipidemia. 3. Hypertension. 4. Hypothyroidism. 5. Cardiovascular disease. PLAN: Right total knee arthroplasty. MMODL / IJN: [id number] /
[~2022-06-10 12:24] MED LIST changes: +ACETAMINOPHEN TAB 500 MG TAB PO PRN; -DEXAMETHASONE SOD PHOSPHATE 10 MG/ML 1 ML VIAL IV ONE; +DEXAMETHASONE SOD PHOSPHATE 4 MG/ML 1 ML VIAL IV ONE; -LACTATED RINGERS 1,000 ML IV SCH; +MELOXICAM 7.5 MG TAB PO PRN; -ONDANSETRON 4 MG/2 ML VIAL IVP ONE; +TRANEXAMIC ACID IN NACL,ISO-OS 1,000 MG in SALINE 1 100ML.BAG IVPB PRN; +VANCOMYCIN 1,500 MG in SODIUM CHLORIDE 0.9% 500 ML 500 ML IVPB PRN; -ceFAZolin IN SWFI 2 GM/20 ML SYRINGE IVP ONE
[2022-06-10] MEDS: LACTATED RINGERS 1,000 ML IV SCH (13:41)
[2022-06-10] MEDS: ONDANSETRON 4 MG/2 ML VIAL IVP ONE ×2 (13:42→13:43)
[2022-06-10] MEDS ORDERED: MIDAZOLAM 2 MG/2 ML VIAL IVP ONE (14:01)
--- NOTE | 2022-06-10 14:35 | P.ANPRN ---
Procedure Note - Anesthesia - Nerve Block Performed Right Adductor Canal Infusion Time Out Performed: Yes Date of Procedure: 06/10/22 Procedure Start Time: 14:00 Procedure Stop Time: 14:11 Location of Patient: PreOp Indication: Requested by Surgeon Sedation Type: Sedate with meaningful contact maintained Preparation: Sterile Prep, Sterile Dressing Position: Supine Catheter: Indwelling Needle Types: Pajunk Needle Gauge: 18 Ultrasound used to visualize needle placement: Yes Ultrasound used to observe medication spread: Yes Injectate: 0.5% Ropivacaine (see comment for volume) (15 ml +10 ml PF NS) Blood Aspirated: No Pain Paresthesia on Injection Noted: No Resistance on Injection: Normal Image Stored and Saved: Yes Events: Uneventful and Well Tolerated
[2022-06-10] MEDS ORDERED: ROPIVACAINE 0.2%-NS ON-Q PUMP 1,090 MG, EMPTY PAIN BALL 1 EACH MISCELLANE PRN (14:37)
--- NOTE | 2022-06-10 14:37 | P.ANPRN ---
Procedure Note - Anesthesia - Nerve Block Performed Right iPack Single Time Out Performed: Yes Date of Procedure: 06/10/22 Procedure Start Time: 14:12 Procedure Stop Time: 14:19 Location of Patient: PreOp Indication: Requested by Surgeon Sedation Type: Sedate with meaningful contact maintained Preparation: Sterile Prep Position: Left Lateral Needle Types: Pajunk Needle Gauge: 21 Ultrasound used to visualize needle placement: Yes Ultrasound used to observe medication spread: Yes Injectate: 0.5% Ropivacaine (see comment for volume) (15 ml +10 ml PF NS) Blood Aspirated: No Pain Paresthesia on Injection Noted: No Resistance on Injection: Normal Image Stored and Saved: Yes Events: Uneventful and Well Tolerated
[2022-06-10 14:46] VITALS: RESP 16
[2022-06-10] MEDS ORDERED: TRANEXAMIC ACID IN NACL,ISO-OS 1,000 MG/100 ML BAG ONE (14:55)
[2022-06-10] MEDS ORDERED: SODIUM CHLORIDE 0.9% (PF) 10 ML VIAL ONE (14:55)
[2022-06-10] MEDS ORDERED: ROPIVACAINE 5 MG/ML 30 ML VIAL ONE (14:55)
[2022-06-10] MEDS ORDERED: MIDAZOLAM 2 MG/2 ML VIAL ONE (14:55)
[2022-06-10] MEDS ORDERED: PROPOFOL 10 MG/ML 20 ML VIAL IV ONE (14:55)
[2022-06-10] MEDS ORDERED: ONDANSETRON 4 MG/2 ML VIAL IVP PRN (16:34)
[2022-06-10] MEDS ORDERED: NALOXONE 0.4 MG/ML 1 ML VIAL IV PRN (16:34)
[2022-06-10] MEDS ORDERED: HYDROmorphone 0.5 MG/0.5 ML SYRINGE IVP PRN ×2 (16:34)
[2022-06-10] MEDS ORDERED: HYDROcodone/APAP 5-325MG 1 EACH TAB PO PRN (16:34)
--- NOTE | 2022-06-10 16:34 | P.OP ---
Date of Procedure: 06/10/22 Preoperative Diagnosis: Right knee osteoarthritis Postoperative Diagnosis: Right knee osteoarthritis Procedure(s) Performed: Right total knee arthroplasty Implants: 1. Depuy attune size 4 right cruciate retaining cemented femur 2. Depuy attune size 4 fixed bearing cemented tibial baseplate 3. Depuy attune size 4 fixed bearing cruciate retaining 12 mm polyethylene tibial insert 4. Depuy attune 35 mm all polyethylene cemented patella Anesthesia: regional (Adductor canal catheter, Ipack block), spinal Surgeon: Trey Baron Veneer Joiner #1: Quinn Espinoza Estimated Blood Loss (ml): 40 Pathology: other (Bone) Condition: stable Disposition: PACU Indications for Procedure: 72-year-old patient seen with symptomatic right knee osteoarthritis. After treatment options were discussed, he elected to proceed with total knee arthroplasty. Operative Findings: see description of procedure Description of Procedure: Patient was taken to the operative suite after having an adductor canal catheter placed by the department of anesthesia. Patient underwent a spinal anesthetic by the department of anesthesia. Patient was given preoperative IV intake antibiotics and TXA. A well-padded tourniquet was placed about the right lower extremity. The lower extremity was then prepped and draped in the normal sterile orthopedic fashion. The extremity was elevated, a tourniquet was insufflated to 300. A standard anterior incision was made sharply through skin. Dissection was taken down through the subcutaneous soft tissues down to the extensor mechanism. A medial arthrotomy was performed, patella was everted and knee was flexed. There was advanced osteoarthritis noted. I introduced my distal intramedullary femoral drill. I then introduced the distal femoral cut ting jig. Shaji VILLALPANDO secured the cutting jig with 2 pins. I held retractors in position while Shaji VILLALPANDO performed the distal femoral resection through the guide area we now removed her distal femoral cutting guide. We now placed our 4-in-1 femoral cutting block and positioned and it was secured with 2 pins by Shaji VILLALPANDO while I held the block in position. The distal femoral finishing was now completed. A proximal tibial cutting guide was positioned. I held the guide in the appropriate position with both hands well Shaji VILLALPANDO inserted stabilizing pins into the guide. Proximal tibial cut was made. We now placed a trial femoral component into position, along with an appropriate size tibial tray and insert. We now took the knee through range of motion and had full extension good flexion and good overall soft tissue balance noted. The patella was everted and stabilized with 2 towel clips held by Shaji VILLALPANDO while I performed a flush with patellar quad tendon utilizing a fresh sawblade. We templated the patella, appropriate drill holes were made. An appropriate trial patella was positioned, knee was taken through full range of motion with the patella tracking very nicely. The trial patella was removed. Drill holes were made through the femoral component. All trial components were removed after marking off the appropriate rotation of the tibia. Retractors were now positioned along the proximal tibia. An appropriate keel punch was made with the appropriate size tibial guide by myself on Shaji VILLALPANDO assisted by holding retractors. At this point appropriate size implants were chosen and opened. The joint was irrigated copiously with pulse lavage mechanical irrigation. The wound was irrigated with pulse lavage mechanical irrigation. We mixed antibiotic methylmethacrylate. We placed the knee into flexion. We placed multiple retractors assisted by Shaji VILLALPANDO to expose the proximal tibia. Once the methyl methacrylate was ready, the tibial component was cemented into place removing any excess methylmethacrylate form by both myself and Shaji VILLALPANDO. The femoral component was cemented into place removing the removing any excess methylmethacrylate performed by both myself and Shaji VILLALPANDO. We then inserted the appropriate size polyethylene tibial insert. We made sure that it was locked into position. We took the knee into full extension, and then back in a flexion making sure we had removed any excess methylmethacrylate. The patellar component was then cemented down and secured with clamp. Excess methylmethacrylate removed. We kept the knee in full extension, patellar clamp in position until methylmethacrylate had hardened. Once it had hardened the patellar clamp was removed. The knee was taken through full range of motion. The patella tracked nicely. There was good soft tissue balancing. The tourniquet was now released. Additional hemostasis was achieved via electrocautery. A second gram of TXA was given. The wound again was irrigated with pulse lavage mechanical irrigation. The extensor mechanism was repaired with Ethibond suture. We checked the repair with range of motion and it was stable. The subcutaneous soft tissues were repaired with Vicryl in layers. The skin was approximated with pernio/Dermabond. Sterile dressings were applied followed by loose web roll and Zeeshan bandage. The patient was transferred to a bed, and taken to recovery in stable and satisfactory condition. Shaji VILLALPANDO assisted with this complex procedure.
[2022-06-10] MEDS: HYDROmorphone 0.5 MG/0.5 ML SYRINGE IVP PRN ×2 (19:05→22:12)
--- NOTE | 2022-06-10 19:20 | XR ---
EXAMINATION TYPE: XR knee limited RT DATE OF EXAM: 06/10/2022 COMPARISON: NONE HISTORY: Postop TECHNIQUE: 2 views FINDINGS: There is right knee prosthesis. Components appear in anatomic position. IMPRESSION: No complicating process seen.
[2022-06-10] MEDS ORDERED: SENNOSIDES-DOCUSATE SODIUM 1 EACH TAB PO SCH (21:00)
[2022-06-10] MEDS: HYDROcodone/APAP 7.5-325MG 1 EACH TAB PO PRN (21:01)
[2022-06-10] MEDS ORDERED: ATORVASTATIN 40 MG TAB PO SCH (21:45)
[2022-06-11] MEDS: HYDROmorphone 0.5 MG/0.5 ML SYRINGE IVP PRN (00:50)
[2022-06-11] MEDS: LACTATED RINGERS 1,000 ML IV SCH ×3 (04:27→11:43)
[2022-06-11] MEDS: HYDROcodone/APAP 7.5-325MG 1 EACH TAB PO PRN ×2 (05:24→11:47)
--- NOTE | 2022-06-11 07:10 | P.PN ---
Progress Note - Text Progress Note Date: 06/11/22 Postoperative day # 1 status post total knee arthroplasty, and adductor canal catheter placed for postoperative analgesia, currently at ropivacaine 0.2% 8 mL per hour and continuous infusion, visual analogue scale is 2-3/10, patient using oral pain medication for breakthrough pain. Assessment and plan= Acute postoperative pain, adductor canal catheter for pain control, pain is well controlled we'll continue the same management.
[2022-06-11 07:39] VITALS: BP 121/67; PULSE 57; TEMP 97.8
[2022-06-11] MEDS ORDERED: ENOXAPARIN 30 MG/0.3 ML SYRINGE SQ SCH (09:00)
[2022-06-11] MEDS ORDERED: LEVOTHYROXINE 112 MCG TAB PO SCH (10:15)
[2022-06-11] MEDS ORDERED: METOPROLOL TARTRATE 25 MG TAB PO SCH (10:15)
--- NOTE | 2022-06-11 10:15 | P.PN ---
Subjective Progress Note Date: 06/11/22 Principal diagnosis: Status post right total knee arthroplasty patient is examined today, she is actually working with physical therapy ambulating. She's doing very well at this time. Her pain is better controlled today she states. She denies any headaches, lightheadedness, chest pain or shortness of breath. Objective - Vital Signs Vital signs: Vital Signs Temp 97.8 F 06/11/22 07:37 Pulse 57 L 06/11/22 08:30 Resp 16 06/11/22 08:30 BP 121/67 06/11/22 07:37 Pulse Ox 100 06/11/22 07:37 FiO2 Intake & Output 06/10/22 06/11/22 06/11/22 18:59 06:59 18:59 Intake Total 1200 Output Total 40 Balance 1160 Weight 102.8 kg 102.8 kg Intake: IV 1200 Output: Estimated Blood Loss 40 Other: Voiding Method Toilet Toilet # Voids 4 - Exam Right lower extremity: Incision is clean, dry, and intact. The foam dressing is in good condition. There is minimal soft tissue swelling and ecchymosis surrounding the medial and lateral aspects of the incision. Calf is soft, no tenderness with palpation. Plantar flexion, dorsiflexion, EHL, FHL are intact. Sensory exam to light touch throughout the extremity is intact, dorsal pedis pulses 2+. Assessment and Plan Assessment: Postoperative day #1 status post right total knee arthroplasty Plan: Pain control, plan for discharge home on [place] 7.5 mg/325 mg DVT prophylaxis, she will resume aspirin and Plavix Wound care instructions, this to include showering along with icing and elevating Medical recommendations PT/OT evaluation Discharge planning: Stable for discharge home today Time with Patient: Less than 30
--- NOTE | 2022-06-11 10:18 | P.DS ---
Providers Date of admission: 06/10/2022 Expected date of discharge: 06/11/22 Attending physician: Trey Baron Consults: 06/10/22 16:34 Consult Physician Routine Consulting Provider: Vern Lilly Consult Reason/Comments: Medical management Do you want consulting provider notified?: Yes Primary care physician: Brenda Dewey Hospital Course: Date of admission: 06/10/2022 to Date of discharge: 06/11/2022 Admission diagnosis: Status post right total knee arthroplasty Discharge diagnosis: Same Attending physician: Dr. Baron Surgical procedures: Right total knee arthroplasty Brief history: Patient is a 72-year-old female with a history of progressive primary right knee osteoarthritis. At this point patient has failed conservative treatment measures and has opted to proceed with a elective right total knee arthroplasty. Hospital course: Details of patient's surgery can be found in operative report. Patient tolerated the procedure well and was subsequently transported to orthopedic floor. Patient's orthopeidc and medical care was provided daily. Patient had daily laboratory tests performed for evaluation of overall blood counts. Patient had daily physical therapy to include strengthening range of motion as well as education with walker ambulation. Patient was treated with Lovenox for their postoperative DVT prophylaxis during their inpatient stay. Patient was noted to have a relatively uneventful postoperative course. Patient reported satisfactory pain control with oral pain medications by postoperative day 0. Patient showed satisfactory progress with physical therapy. Patient moved steadily through the program and had no difficulty meeting the goals by postoperative day 1. Given patient's otherwise satisfactory course and having met physical therapy goals, plan is to discharge patient home on postoperative day 1. Discharge condition/disposition: Patient will be discharged home in stable condition. Discharge medications: Instructions are given on resumption of patient's normal daily medications per primary care recommendation, in addition patient will be prescribed [place] 7.5 mg/325 mg, senna. Discharge instructions: 1. Wound care and infection precautions, keep incision dry and covered while showering, no lotions, creams, moisturizers. No soaking, tubs, pools, hottubs. Do not scrub over the incision. 2. Weight-bear as tolerated with walker / cane until follow-up. 3. Ice and elevate when necessary. Do not exceed 20 minutes per hour with ice pack. 4. Utilize compression sleeve until seen at first follow up appointment. 5. Visiting nursing care. 6. Home physical therapy including home CPM. 7. Pain meds and anticoagulants per prescription. 8. Pain medication has potential to cause constipation. Increase oral fluid and fiber intake. Contact primary care provider if you have not had a bowel movement within 48 hours after discharge 9. No anti-inflammatory medication until discussed at first post operative visit, this including Motrin, Aleve, Mobic, Diclofenac. 10. Follow up in office at 2 weeks postop with Shaji Espinoza PA-C/Milind Guzman 11. Follow up with your primary care doctor 7-10 days after discharge. 12. Contact [facility] with any questions, . Procedures: Right total knee arthroplasty Patient Condition at Discharge: Good Plan - Discharge Summary Discharge Rx Participant: No New Discharge Prescriptions: New HYDROcodone/APAP 7.5-325MG [[place] 7.5] 1 each PO Q4HR PRN #42 tab PRN Reason: Pain Sennosides/Docusate Sodium [Senna-S 8.6-50 mg Tablet] 1 each PO DAILY PRN #21 tablet PRN Reason: Constipation No Action Potassium Chloride ER [K-Dur 20] 20 meq PO DAILY@1200 Multivitamins, Thera [Multivitamin (formulary)] 1 tab PO BID lisinopriL [Zestril] 10 mg PO DAILY Ferrous Sulfate [Iron (65 MG Elemental)] 325 mg PO HS Aspirin [Adult Low Dose Aspirin EC] 81 mg PO DAILY@1200 Ascorbic Acid [Vitamin C] 1,000 mg PO HS Cholecalciferol [Vitamin D3 (25 Mcg = 1000 Iu)] 3,000 unit PO QAM Krill Oil 500 mg PO DAILY@1200 Fluticasone Nasal Foss [Flonase Nasal Foss] 2 spr EA NOSTRIL HS buPROPion HCL [Wellbutrin SR] 150 mg PO BID Levothyroxine Sodium 112 mcg PO DAILY Calcium Citrate 600mg Tab 1 tab PO BID Atorvastatin Calcium [Lipitor] 40 mg PO HS #30 tablet Clopidogrel Bisulfate [Plavix] 75 mg PO DAILY #30 tab Omeprazole Magnesium [PriLOSEC] 20 mg PO HS Metoprolol Tartrate 25 mg PO DAILY Ferrous Sulfate [Iron] 325 mg PO DAILY Discharge Medication List Ascorbic Acid [Vitamin C] 1,000 mg PO HS 01/02/18 [History] Aspirin [Adult Low Dose Aspirin EC] 81 mg PO DAILY@1200 01/02/18 [History] Cholecalciferol [Vitamin D3 (25 Mcg = 1000 Iu)] 3,000 unit PO QAM 01/02/18 [History] Ferrous Sulfate [Iron (65 MG Elemental)] 325 mg PO HS 01/02/18 [History] Multivitamins, Thera [Multivitamin (formulary)] 1 tab PO BID 01/02/18 [History] Potassium Chloride ER [K-Dur 20] 20 meq PO DAILY@1200 01/02/18 [History] lisinopriL [Zestril] 10 mg PO DAILY 01/02/18 [History] Fluticasone Nasal Foss [Flonase Nasal Foss] 2 spr EA NOSTRIL HS 09/01/18 [History] Krill Oil 500 mg PO DAILY@1200 09/01/18 [History] buPROPion HCL [Wellbutrin SR] 150 mg PO BID 09/01/18 [History] Levothyroxine Sodium 112 mcg PO DAILY 09/07/18 [History] Calcium Citrate 600mg Tab 1 tab PO BID 03/06/20 [History] Atorvastatin Calcium [Lipitor] 40 mg PO HS #30 tablet 03/07/20 [Rx] Clopidogrel Bisulfate [Plavix] 75 mg PO DAILY #30 tab 03/07/20 [Rx] Metoprolol Tartrate 25 mg PO DAILY 01/19/21 [History] Omeprazole Magnesium [PriLOSEC] 20 mg PO HS 01/19/21 [History] Ferrous Sulfate [Iron] 325 mg PO DAILY 06/04/22 [History] HYDROcodone/APAP 7.5-325MG [[place] 7.5] 1 each PO Q4HR PRN #42 tab 06/11/22 [Rx] Sennosides/Docusate Sodium [Senna-S 8.6-50 mg Tablet] 1 each PO DAILY PRN #21 tablet 06/11/22 [Rx] Follow up Appointment(s)/Referral(s): Brenda Dewey MD [Primary Care Provider] - 1 Week Quinn Espinoza PAC [PHYSICIAN MAIL MACHINE OPERATOR] - 06/28/22 9:00 am Patient Instructions/Handouts: *Surgery [facility] - On-Q Pain Pump Discharge Instructions, Knee Replacement (DC) Activity/Diet/Wound Care/Special Instructions: Orthopedic Discharge Instructions: 1. Wound care and infection precautions, keep incision dry and covered while showering, no lotions, creams, moisturizers. No soaking, pools, hot tubs. Do not scrub over incision. 2. Weight-bear as tolerated with walker / cane until follow-up. 3. Ice and elevate when necessary. Do not exceed 20 minutes per hour with ice pack. 4. Utilize compression sleeve until seen at first follow up appointment. 5. Pain meds and anticoagulants per prescription. 6. Pain medication has potential to cause constipation. Increase oral fluid and fiber intake. Contact primary care provider if you have not had a bowel movement within 48 hours after discharge. 7. No anti-inflammatory medication until discussed at first post operative visit, this including Motrin, Aleve, Mobic, Diclofenac, Aspirin. 8. Follow up in office at 2 weeks postop with Shaji Espinoza PA-C / Milind Boyd PA-C 9. Follow up with your primary care doctor 7-10 days after discharge. 10. Contact [facility] with any questions, . keep incision clean, dry, intact. While showering, cover silver foam dressing with Saran wrap. Silver foam dressing may be removed in 7 days, 06/17/2022. Discharge Disposition: HOME WITH HOME HEALTH SERVICES
[2022-06-11 10:55] LABS: Basophils # (A) 0.02 X 10*3/uL (0.00-0.10); Basophils % (A) 0.2 %; Eosinophils # (A) 0.07 X 10*3/uL (0.04-0.35); Eosinophils % (A) 0.8 %; HCT 37.9 % (37.2-46.3); HGB 12.1 g/dL (12.0-15.0); Immature Grans, Automated 0.5 %; Lymphocytes % (A) 11.7 %; MCH 31.2 pg (27.0-32.0); MCHC 31.9 g/dL (32.0-37.0); MCV 97.7 fL (80.0-97.0); Mean Platelet Volume 9.8 fL (9.5-12.2); Monocytes # (A) 0.72 X 10*3/uL (0.20-1.00); Monocytes % (A) 8.4 %; NRBC Per 100 WBC 0 /100 WBCS (0.0-0.0); Neutrophils # (A) 6.72 X 10*3/uL (1.80-7.70); Neutrophils % (A) 78.4 %; Platelet Count 191 X 10*3/uL (140-440); RBC 3.88 X 10*6/uL (4.10-5.20); RDW 13.2 % (11.5-14.5); WBC 8.57 X 10*3/uL (4.50-10.00)
--- NOTE | 2022-06-11 20:23 | P.CONS ---
History of Present Illness - Reason for Consult Consult date: 06/11/22 Medical management - Chief Complaint Status post right total knee arthroplasty - History of Present Illness Patient is a 72-year-old female with a known history of hypertension, GERD, mitral valve prolapse, thoracic aortic aneurysm, muscular dystrophy, restless leg syndrome, depression and history of TIA was admitted to the hospital for elective right total knee arthroplasty. Patient tolerated the procedure very well. Currently postoperative day 1. Pain is controlled with nerve block. No complaints of chest pain or shortness of breath. No nausea vomiting abdominal pain or diarrhea. No headache or dizziness or lightheadedness. No fever no chills. No cough or sputum production. Laboratory showed WBC 8.5 hemoglobin 12.1 and platelets 191. Blood pressure is controlled. Review of Systems Constitutional: Patient denies any fever or chills . no Generalized weakness. Abdomen: Patient denied any nausea or vomiting or abd. pain Cardiovascular: Patient denies any chest pain or short of breath no palpitations. Respiratory: patient denied any cough . no sputum production. No shortness of breath Neurologic: Patient denied any numbness or tingling headache. Musculoskeletal: Patient denies any complaints of joint swelling or deformity. Skin: Negative Psychiatric: Negative Endocrine: No heat or cold intolerance. No recent weight gain. Genitourinary: No dysuria or hematuria. All other 14 point ROS negative except the above Past Medical History Past Medical History: CVA/TIA, GERD/Reflux, Hypertension Additional Past Medical History / Comment(s): MITRAL VALVE PROLAPSE, TIA 1973, 2019 -NO RESIDUAL. Thoracic aortic aneurysm, fuchs dystrophy, restless leg syndrome History of Any Multi-Drug Resistant Organisms: None Reported Year Discovered:: None MDRO Source:: None Past Surgical History: Bariatric Surgery, Bladder Surgery, Cholecystectomy, Hysterectomy, Joint Replacement, Orthopedic Surgery Additional Past Surgical History / Comment(s): GASTRIC BYPASS. SVEN CATARACTS. COLONOSCOPY, EGD. TKR left knee Sep 2018 & 01/2019, corrective surgery on right wrist Past Anesthesia/Blood Transfusion Reactions: No Reported Reaction Additional Past Anesthesia/Blood Transfusion Reaction / Comm: no hx blood transfusion Past Psychological History: Depression Smoking Status: Never smoker Past Alcohol Use History: None Reported Past Drug Use History: None Reported - Past Family History Sister(s) Family Medical History: Cancer, Hypertension Additional Family Medical History / Comment(s): COLON CA Mother Family Medical History: Cancer, Diabetes Mellitus, Hypertension Additional Family Medical History / Comment(s): CERVICAL, Parkinson's Father Family Medical History: Hypertension Additional Family Medical History / Comment(s): half of lung didn't work Brother(s) Family Medical History: Congestive Heart Failure (CHF), Hypertension Medications and Allergies Home Medications Medication Instructions Recorded Confirmed Type Ascorbic Acid [Vitamin C] 1,000 mg PO HS 01/02/18 06/10/22 History Aspirin [Adult Low Dose Aspirin EC] 81 mg PO DAILY@1200 01/02/18 06/10/22 History Cholecalciferol [Vitamin D3 (25 3,000 unit PO QAM 01/02/18 06/10/22 History Mcg = 1000 Iu)] Ferrous Sulfate [Iron (65 MG 325 mg PO HS 01/02/18 06/10/22 History Elemental)] Multivitamins, Thera [Multivitamin 1 tab PO BID 01/02/18 06/10/22 History (formulary)] Potassium Chloride ER [K-Dur 20] 20 meq PO DAILY@1200 01/02/18 06/10/22 History lisinopriL [Zestril] 10 mg PO DAILY 01/02/18 06/10/22 History Fluticasone Nasal [place] [Flonase 2 spr EA NOSTRIL HS 09/01/18 06/10/22 History Nasal [place]] Krill Oil 500 mg PO DAILY@1200 09/01/18 06/10/22 History buPROPion HCL [Wellbutrin SR] 150 mg PO BID 09/01/18 06/10/22 History Levothyroxine Sodium 112 mcg PO DAILY 09/07/18 06/10/22 History Calcium Citrate 600mg Tab 1 tab PO BID 03/06/20 06/10/22 History Atorvastatin Calcium [Lipitor] 40 mg PO HS #30 tablet 03/07/20 06/10/22 Rx Clopidogrel Bisulfate [Plavix] 75 mg PO DAILY #30 tab 03/07/20 06/10/22 Rx Metoprolol Tartrate 25 mg PO DAILY 01/19/21 06/10/22 History Omeprazole Magnesium [PriLOSEC] 20 mg PO HS 01/19/21 06/10/22 History Ferrous Sulfate [Iron] 325 mg PO DAILY 06/04/22 06/10/22 History HYDROcodone/APAP 7.5-325MG [[place] 1 each PO Q4HR PRN #42 tab 06/11/22 Rx 7.5] Sennosides/Docusate Sodium 1 each PO DAILY PRN #21 tablet 06/11/22 Rx [Senna-S 8.6-50 mg Tablet] Allergies Allergy/AdvReac Type Severity Reaction Status Date / Time Tetracyclines Allergy Anaphylaxis Verified 06/10/22 13:12 Physical Exam Vitals: Vital Signs Temp Pulse Pulse Resp BP Pulse Ox 06/11/22 08:30 57 L 16 06/11/22 07:37 97.8 F 57 L 16 121/67 100 06/10/22 20:47 58 L 166/84 06/10/22 20:31 49 L 159/80 93 L 06/10/22 20:17 50 L 155/77 92 L 06/10/22 20:01 50 L 160/90 91 L 06/10/22 19:46 51 L 164/77 96 06/10/22 19:31 48 L 138/82 94 L 06/10/22 19:17 52 L 134/68 96 06/10/22 19:02 60 165/76 98 06/10/22 18:46 49 L 143/83 98 06/10/22 18:25 46 L 16 141/72 97 06/10/22 18:09 47 L 16 151/66 97 06/10/22 17:54 41 L 16 134/61 94 L 06/10/22 17:39 44 L 16 135/63 93 L 06/10/22 17:24 46 L 16 136/66 96 06/10/22 17:09 45 L 16 120/58 95 06/10/22 16:53 97.6 F 51 L 16 102/54 92 L 06/10/22 14:30 51 L 16 129/76 100 06/10/22 13:24 97.8 F 60 18 132/64 99 Intake and Output 06/10/22 06/11/22 06/11/22 22:59 06:59 14:59 Intake Total 650 Output Total 40 Balance 610 Intake: IV 650 Output: Estimated Blood Loss 40 Other: Voiding Method Toilet Toilet # Voids 4 Weight 102.8 kg PHYSICAL EXAMINATION: Patient is lying in the bed comfortably, no acute distress, awake alert and oriented.. HEENT: Normocephalic. Neck is supple. Pupils reactive. Nostrils clear. Oral cavity is moist. Neck reveals no JVD, carotid bruits, or thyromegaly. CHEST EXAMINATION: Trachea is central. Symmetrical expansion. Lung arias clear to auscultation and percussion. CARDIAC: Normal S1, S2 with no gallops. No murmurs ABDOMEN: Soft. Bowel sounds present. Nontender. No organomegaly. No abdominal bruits. Extremities: reveal no edema. No clubbing or cyanosis Neurologically awake, alert, oriented x3 with well-coordinated movements. No focal deficits noted Skin: No rash or skin lesions. Psychiatric: Coperative. Nonsuicidal, Musculoskeletal: No joint swelling or deformity. Right knee surgical site is intact. Normal range of motion. Results CBC & Chem 7: 06/11/22 07:35 Assessment and Plan Assessment: Right total knee arthroplasty. Postoperative day 1 Hypertension. Controlled with medications. Osteoarthritis History of mitral valve prolapse GERD Muscular dystrophy Restless leg syndrome and Depression History of gastric bypass surgery Hypothyroidism History of TIA DVT prophylaxis Plan: Patient will be continued on current pain medications, bowel regimen and encourage incentive spirometry. Continue with home blood pressure medications which include lisinopril and metoprolol. Continue to titrate home blood pressure medications. Patient will be started back on aspirin and Plavix with prior history of TIA. Follow-up closely and further recommendations based on clinical course. Thank you for your consult.
[2022-06-11] MEDS ORDERED: PANTOPRAZOLE 40 MG TABLET PO SCH (21:00)
[2022-06-11] MEDS ORDERED: buPROPion SR 150 MG TABLET.ER PO SCH (21:00)
[2022-06-11] MEDS ORDERED: ATORVASTATIN 40 MG TAB PO SCH (21:00)
[2022-06-11] MEDS ORDERED: FLUTICASONE 50MCG/SPRAY NASAL 16GM EA NOSTRIL SCH (21:00)
[2022-06-12] MEDS ORDERED: lisinopriL 10 MG TAB PO SCH (09:00)
[2022-06-12] MEDS ORDERED: CLOPIDOGREL 75 MG TAB PO SCH (09:00)
== END 2022-06-11 12:22 | disposition home health service (06) ==
LOC: OR 12:24 → 4SSUR 16:30 → OR 06-11 12:22
PROVIDERS: ATTEND Orthopaedic Surgery
DX: M17.11 Unilateral primary osteoarthritis, right knee (principal); G89.18 Other acute postprocedural pain; E03.9 Hypothyroidism, unspecified; I10 Essential (primary) hypertension; E78.5 Hyperlipidemia, unspecified; I25.10 Atherosclerotic heart disease of native coronary artery without angina pectoris; Z98.49 Cataract extraction status, unspecified eye; Z90.49 Acquired absence of other specified parts of digestive tract; Z98.84 Bariatric surgery status; Z90.710 Acquired absence of both cervix and uterus; Z98.890 Other specified postprocedural states; Z79.899 Other long term (current) drug therapy; Z79.01 Long term (current) use of anticoagulants; Z88.1 Allergy status to other antibiotic agents
CPT/HCPCS: 97161; 64999; 64448; 76942; 85025; 73560; 27447; C1776; C1713 ×2; C1751; J2250; J3370; J1100; J0690; J2405; J1650; J1170 ×2; J2795; 88300

== ENCOUNTER 2022-08-29 14:54 | Day surgery (SDC) | payer MEDICARE ==
[~2022-08-29 14:54] MED LIST changes: -ACETAMINOPHEN TAB 500 MG TAB PO PRN; -DEXAMETHASONE SOD PHOSPHATE 4 MG/ML 1 ML VIAL IV ONE; -HYDROmorphone 0.5 MG/0.5 ML SYRINGE IVP PRN; -MELOXICAM 7.5 MG TAB PO PRN; -MIDAZOLAM 2 MG/2 ML VIAL IV PRN; +SODIUM CHLORIDE 0.9% 1,000 ML IV SCH; -TRANEXAMIC ACID IN NACL,ISO-OS 1,000 MG in SALINE 1 100ML.BAG IVPB PRN; -VANCOMYCIN 1,500 MG in SODIUM CHLORIDE 0.9% 500 ML 500 ML IVPB PRN
[2022-08-29] MEDS ORDERED: SODIUM CHLORIDE 0.9% 500 ML 500 ML IV ONE (15:14)
[2022-08-29 15:30] VITALS: RESP 16; TEMP 99
[2022-08-29] MEDS ORDERED: LIDOCAINE 1% INJ 10MG/ML (30 ML VIAL-PF) SQ ONE (17:48)
--- NOTE | 2022-08-29 18:01 | P.EPPROC ---
- EP Procedure Note Electrophysiology Procedure Note: Loop monitor implant Primary physicians: Dr. Brenda Dewey Part Time Flexible Clerk: Dr. Stuart Indication: History of multiple TIAs Patient was brought to the EP lab in a fasting state. Written informed consent was obtained prior to the procedure. The left pectoral area was prepped and draped per protocol. Intravenous antibiotic was administered preoperatively. A subcutaneous Loop monitor was implanted successfully and the wound was closed per protocol. The device was programmed to detect significant sheila- arrhythmic and tachy-arrhythmic events, per protocol. Device and programming details: Patient underwent EP procedure under conscious sedation/moderate sedation, monitoring of the level of consciousness and physiologic parameters including but not limited to vital signs and oxygenation. Patient tolerated the procedure well without any acute complications. Start time: 1747 Stop time: 175
--- NOTE | 2022-08-29 18:02 | P.EPPROC ---
- EP Procedure Note Electrophysiology Procedure Note: Dear Dr. Maco Ashby underwent implantation of loop monitor. She's had a history of multiple TIAs in the past Hopefully we will be able to clarify the etiology of her TIAs Thank you for entrusting me with the care of the patient Warm regards Sincerely Deng Stuart
[2022-08-29 18:35] VITALS: BP 130/72; PULSE 82
== END 2022-08-29 18:25 | disposition home or self-care (01) ==
LOC: CATHEP 14:54
PROVIDERS: ATTEND Internal Medicine Clinical Cardiac Electrophysiology
DX: I71.21 Aneurysm of the ascending aorta, without rupture (principal); I10 Essential (primary) hypertension; Z86.73 Personal history of transient ischemic attack (TIA), and cerebral infarction without residual deficits
CPT/HCPCS: 33285; C1764; J0690; J2001

== ENCOUNTER → 2022-12-02 | Outpatient (CLI) | payer MEDICARE ==
[2022-12-02 17:14] LABS: Basophils # (A) 0.03 X 10*3/uL (0.00-0.10); Basophils % (A) 0.6 %; Eosinophils # (A) 0.26 X 10*3/uL (0.04-0.35); Eosinophils % (A) 5.3 %; HCT 42.4 % (37.2-46.3); HGB 13.8 g/dL (12.0-15.0); Immature Grans, Automated 0.2 %; Lymphocytes # (A) 1.44 X 10*3/uL (0.90-5.00); Lymphocytes % (A) 29.4 %; MCH 30.6 pg (27.0-32.0); MCHC 32.5 g/dL (32.0-37.0); Mean Platelet Volume 9.2 fL (9.5-12.2); Monocytes # (A) 0.43 X 10*3/uL (0.20-1.00); Monocytes % (A) 8.8 %; NRBC Per 100 WBC 0 /100 WBCS (0.0-0.0); Neutrophils # (A) 2.72 X 10*3/uL (1.80-7.70); Neutrophils % (A) 55.7 %; Platelet Count 183 X 10*3/uL (140-440); RBC 4.51 X 10*6/uL (4.10-5.20); RDW 13.2 % (11.5-14.5); WBC 4.89 X 10*3/uL (4.50-10.00)
[2022-12-02 18:08] LABS: ALT 46 U/L (8-44); AST 34 U/L (13-35); African American GFR (CKD) 78.8 (60.0-200.0); Alkaline Phosphatase 89 U/L (41-126); BUN/Creat Ratio 25.43 Ratio (12.00-20.00); Calcium 9.9 mg/dL (8.7-10.3); Carbon Dioxide 25.9 mmol/L (20.0-27.5); Chloride 106 mmol/L (96-109); Chol/HDL Ratio 2.02 Ratio; Globulin 1.8 g/dL (1.6-3.3); Glucose 108 mg/dL (70-110); LDL Cholesterol,Calculated 51.1 mg/dL (0.0-131.0); Potassium 4.4 mmol/L (3.5-5.5); Sodium 145 mmol/L (135-145); Total Protein 5.8 g/dL (6.2-8.2); Uric Acid 4.8 mg/dL (2.9-7.7); VLDL Calculation 11.62 mg/dL (5.00-40.00)
== END | disposition home or self-care (01) ==
LOC: LABWHC1 10:55
PROVIDERS: ATTEND Family Medicine
DX: Z00.01 Encounter for general adult medical examination with abnormal findings (principal); I48.0 Paroxysmal atrial fibrillation; G45.9 Transient cerebral ischemic attack, unspecified; M25.561 Pain in right knee; E55.9 Vitamin D deficiency, unspecified; E53.8 Deficiency of other specified B group vitamins; R73.9 Hyperglycemia, unspecified
CPT/HCPCS: 36415; 80053; 80061; 82306; 82607; 83036; 83735; 84439; 84443; 84550; 85025

== ENCOUNTER 2023-01-08 08:39 | Day surgery (SDC) | payer MEDICARE ==
[2023-01-06 15:43] VITALS: BMI 41.1
--- NOTE | 2023-01-08 08:33 | P.GSHP ---
History of Present Illness H&P Date: 01/08/23 CHIEF COMPLAINT: Colon screen HISTORY OF PRESENT ILLNESS: The patient is a 72-year-old female who presents for colon screen. Lower endoscopy was offered for further evaluation and management. PAST MEDICAL HISTORY: Please see list. PAST SURGICAL HISTORY: Please see list. MEDICATIONS: Please see list. ALLERGIES: Please see list. SOCIAL HISTORY: No illicit drug use FAMILY HISTORY: No reports of Crohn disease or ulcerative colitis. REVIEW OF ORGAN SYSTEMS: CONSTITUTIONAL: No reports of fevers or chills. PHYSICAL EXAM: VITAL SIGNS: Stable GENERAL: Well-developed pleasant in no acute distress. HEENT: No scleral icterus. Extraocular movements grossly intact. Moist buccal mucosa. NECK: Supple without lymphadenopathy. CHEST: Unlabored respirations. Equal bilateral excursions. CARDIOVASCULAR: Regular rate and rhythm. Distal 2+ pulses. ABDOMEN: Soft, nontender, nondistended. MUSCULOSKELETAL: No clubbing, cyanosis, or edema. ASSESSMENT: 1. Colon screen. PLAN: 1. Recommend proceeding with a lower endoscopy Past Medical History Past Medical History: CVA/TIA, GERD/Reflux, Hyperlipidemia, Hypertension, Mitral Valve Prolapse (MVP), Sleep Apnea/CPAP/BIPAP Additional Past Medical History / Comment(s): MITRAL VALVE PROLAPSE, TIA 1973, 2019 -NO RESIDUAL. Thoracic aortic aneurysm, fuchs dystrophy, restless leg syndrome, USES CPAP History of Any Multi-Drug Resistant Organisms: MRSA Date of last positivie culture/infection: 09/2018 MDRO Source:: NASAL SWAB Past Surgical History: Bariatric Surgery, Bladder Surgery, Cholecystectomy, EPS, Hysterectomy, Joint Replacement, Orthopedic Surgery Additional Past Surgical History / Comment(s): GASTRIC BYPASS. SVEN CATARACTS. COLONOSCOPY, EGD. BILAT TKA- Sep 2018 & 01/2019, corrective surgery on right wrist. LOOP RECORDER 08/26/22 Past Anesthesia/Blood Transfusion Reactions: No Reported Reaction Additional Past Anesthesia/Blood Transfusion Reaction / Comment(s): no hx blood transfusion Smoking Status: Never smoker - Past Family History Sister(s) Family Medical History: Cancer, Hypertension Additional Family Medical History / Comment(s): COLON CA Mother Family Medical History: Cancer, Diabetes Mellitus, Hypertension Additional Family Medical History / Comment(s): CERVICAL, Parkinson's Father Family Medical History: Hypertension Additional Family Medical History / Comment(s): half of lung didn't work Brother(s) Family Medical History: Congestive Heart Failure (CHF), Hypertension Medications and Allergies Home Medications Medication Instructions Recorded Confirmed Type Ascorbic Acid [Vitamin C] 1,000 mg PO HS 01/02/18 01/06/23 History Aspirin [Adult Low Dose Aspirin EC] 81 mg PO DAILY@1200 01/02/18 01/06/23 History Multivitamins, Thera [Multivitamin 1 tab PO BID 01/02/18 01/06/23 History (formulary)] Potassium Chloride ER [K-Dur 20] 20 meq PO DAILY@1200 01/02/18 01/06/23 History lisinopriL [Zestril] 10 mg PO DAILY 01/02/18 01/06/23 History Fluticasone Nasal [place] [Flonase 2 spr EA NOSTRIL HS 09/01/18 01/06/23 History Nasal [place]] buPROPion HCL [Wellbutrin SR] 150 mg PO BID 09/01/18 01/06/23 History Levothyroxine Sodium 112 mcg PO QA 09/07/18 01/06/23 History Atorvastatin Calcium [Lipitor] 40 mg PO HS #30 tablet 03/07/20 01/06/23 Rx Metoprolol Tartrate 25 mg PO QAM 01/19/21 01/06/23 History Omeprazole Magnesium [PriLOSEC] 20 mg PO HS 01/19/21 01/06/23 History Ferrous Sulfate [Iron] 325 mg PO HS 06/04/22 01/06/23 History Clopidogrel Bisulfate [Plavix] 75 mg PO QA 08/26/22 01/06/23 History Apixaban [Eliquis] 5 mg PO DAILY 01/06/23 01/06/23 History Calcium Citrate/Vitamin D3 1 each PO BID 01/06/23 01/06/23 History [Citracal + D Maximum Caplet] Sodium Chloride 5% Ophth Soln 1 drops BOTH EYES BID 01/06/23 01/06/23 History [Manjit 128] Allergies Allergy/AdvReac Type Severity Reaction Status Date / Time Tetracyclines Allergy Anaphylaxis Verified 01/06/23 15:29
[~2023-01-08 08:39] MED LIST changes: +LACTATED RINGERS 1,000 ML IV SCH; +LIDOCAINE 1% (10MG/ML) FOR IV START INTRADERMA PRN; -SODIUM CHLORIDE 0.9% 1,000 ML IV SCH
[2023-01-08 09:19] VITALS: RESP 16; TEMP 97
[2023-01-08] MEDS ORDERED: LIDOCAINE 2% INJ 20 MG/ML (2 ML VIAL) ONE (09:19)
[2023-01-08] MEDS ORDERED: PROPOFOL 10 MG/ML 20 ML VIAL IV ONE (09:19)
[2023-01-08 10:18] VITALS: BP 103/68; PULSE 49
--- NOTE | 2023-01-13 19:56 | P.PCN ---
Date of Procedure: 01/08/23 Description of Procedure: PREOPERATIVE DIAGNOSIS: Colonoscopy screening. Family history of colon cancer, sister Diverticulosis, scattered. POSTOPERATIVE DIAGNOSIS: Tubular adenoma ascending colon Sigmoid diverticulosis OPERATION: Colonoscopy to the ileocecal valve and appendiceal orifice, cecum Colonoscopy with hot snare polypectomy SURGEON: Hanny Harris MD. ANESTHESIA: MAC. INDICATIONS: The patient is an 72-year-old female who presents family history of malignant colon polyps. Last colonoscopy 5 years. Benefits and risks were described and informed consent was obtained. DESCRIPTION OF PROCEDURE: The patient had undergone Sutab prep. The patient had been brought into the operating room and laid in the left lateral decubitus position. After adequate intravenous sedation, the rectum was examined with 2% lidocaine jelly. The prostate was unremarkable. External hemorrhoids were encountered. The rectal tone was within normal limits. No lesions were palpated in the rectal vault. An Olympus colonoscope was advanced until the cecum, ileocecal valve and appendiceal orifice were clearly viewed. The prep was poor to fair. Sigmoid diverticulosis was encountered. Colonic polyps were found and removed. No evidence of focal colitis was found. Retroflexion of the scope demonstrated grade 2 internal hemorrhoids without active bleeding or inflammation. The colon was desufflated. The patient had tolerated the procedure well. Withdrawal time was over 6 minutes. FINDINGS: Aronchick preparation quality scale 3+ (1-5) Internal hemorrhoids, grade 2 External hemorrhoids, grade 1 Poor prep limiting view for arteriovenous malformation and polyps Sigmoid diverticulosis Highly redundant sigmoid colon Removal of 1 polyps: - Snare polypectomy ascending colon, 4 mm polyp. No focal colitis. RECOMMENDATIONS: Due to poor prep, recommend repeat colonoscopy 1 year 2023 Plan - Discharge Summary Discharge Rx Participant: No New Discharge Prescriptions: Continue Potassium Chloride ER [K-Dur 20] 20 meq PO DAILY@1200 Multivitamins, Thera [Multivitamin (formulary)] 1 tab PO BID lisinopriL [Zestril] 10 mg PO DAILY Ascorbic Acid [Vitamin C] 1,000 mg PO HS Fluticasone Nasal [place] [Flonase Nasal [place]] 2 spr EA NOSTRIL HS buPROPion HCL [Wellbutrin SR] 150 mg PO BID Levothyroxine Sodium 112 mcg PO QAM Atorvastatin Calcium [Lipitor] 40 mg PO HS #30 tablet Omeprazole Magnesium [PriLOSEC] 20 mg PO HS Apixaban [Eliquis] 5 mg PO DAILY Calcium Citrate/Vitamin D3 [Citracal + D Maximum Caplet] 1 each PO BID Metoprolol Tartrate 25 mg PO QAM Ferrous Sulfate [Iron] 325 mg PO HS Clopidogrel Bisulfate [Plavix] 75 mg PO QAM Sodium Chloride 5% Ophth Soln [Manjit 128] 1 drops BOTH EYES BID Discharge Medication List Ascorbic Acid [Vitamin C] 1,000 mg PO HS 01/02/18 [History] Multivitamins, Thera [Multivitamin (formulary)] 1 tab PO BID 01/02/18 [History] Potassium Chloride ER [K-Dur 20] 20 meq PO DAILY@1200 01/02/18 [History] lisinopriL [Zestril] 10 mg PO DAILY 01/02/18 [History] Fluticasone Nasal [place] [Flonase Nasal [place]] 2 spr EA NOSTRIL HS 09/01/18 [History] buPROPion HCL [Wellbutrin SR] 150 mg PO BID 09/01/18 [History] Levothyroxine Sodium 112 mcg PO QAM 09/07/18 [History] Atorvastatin Calcium [Lipitor] 40 mg PO HS #30 tablet 03/07/20 [Rx] Metoprolol Tartrate 25 mg PO QAM 01/19/21 [History] Omeprazole Magnesium [PriLOSEC] 20 mg PO HS 01/19/21 [History] Ferrous Sulfate [Iron] 325 mg PO HS 06/04/22 [History] Clopidogrel Bisulfate [Plavix] 75 mg PO QAM 08/26/22 [History] Apixaban [Eliquis] 5 mg PO DAILY 01/06/23 [History] Calcium Citrate/Vitamin D3 [Citracal + D Maximum Caplet] 1 each PO BID 01/06/23 [History] Sodium Chloride 5% Ophth Soln [Manjit 128] 1 drops BOTH EYES BID 01/06/23 [History] Follow up Appointment(s)/Referral(s): Hanny Harris MD [STAFF PHYSICIAN] - As Needed Patient Instructions/Handouts: *Surgery [facility] - (Anesthesia) Discharge Instructions Outpatient Surgery, Colorectal Polyps (GEN), Colonoscopy (DC) Activity/Diet/Wound Care/Special Instructions: START BLOOD THINNER 01/10. Repeat colonoscopy 3 , 2025; recommend 2 day prep Discharge Disposition: HOME SELF-CARE
== END 2023-01-08 11:17 | disposition home or self-care (01) ==
LOC: ORWHC2ENDO 08:39
PROVIDERS: ATTEND Surgery Plastic and Reconstructive Surgery
DX: D12.2 Benign neoplasm of ascending colon (principal); K57.30 Diverticulosis of large intestine without perforation or abscess without bleeding; I10 Essential (primary) hypertension; E78.5 Hyperlipidemia, unspecified; K21.9 Gastro-esophageal reflux disease without esophagitis; I34.1 Nonrheumatic mitral (valve) prolapse; G47.33 Obstructive sleep apnea (adult) (pediatric); G25.81 Restless legs syndrome; Z86.73 Personal history of transient ischemic attack (TIA), and cerebral infarction without residual deficits; Z99.89 Dependence on other enabling machines and devices; Z88.0 Allergy status to penicillin; Z90.49 Acquired absence of other specified parts of digestive tract; Z90.710 Acquired absence of both cervix and uterus; Z98.84 Bariatric surgery status; Z98.890 Other specified postprocedural states; Z98.41 Cataract extraction status, right eye; Z98.42 Cataract extraction status, left eye; Z82.49 Family history of ischemic heart disease and other diseases of the circulatory system; Z83.3 Family history of diabetes mellitus; Z79.82 Long term (current) use of aspirin; Z79.01 Long term (current) use of anticoagulants; Z79.899 Other long term (current) drug therapy; Z88.1 Allergy status to other antibiotic agents
CPT/HCPCS: 88305; 45385; J2704; J2001

== ENCOUNTER → 2023-05-08 | Outpatient (CLI) | payer MEDICARE ==
--- NOTE | 2023-05-08 15:33 | BD ---
EXAMINATION TYPE: Axial Bone Density DATE OF EXAM: 05/08/2023 CLINICAL HISTORY: 73 years old Female. ICD-10 CODE: M89.9 BONE DISORDER Height: 60.5 Weight: 239.8 FRAX RISK QUESTIONS: Alcohol (3 or more units per day): no Family History (Parent hip fracture): no Glucocorticoids (More than 3mos): no History of Fracture in Adulthood: no Secondary Osteoporosis: 1. Type 1 Diabetes: no 2. Hyperthyroidism: no 3. Menopause before 45: no 4. Malnutrition: no 5. Chronic liver disease: no Rheumatoid Arthritis: no Current Tobacco Use: no RISK FACTORS HISTORY OF: Hip Fracture (Right/Left): no Spine Fracture: no When: no History of Wrist Fracture: no Surgery to Spine/Hip(right/left)/Wrist (right/left): no Family History of Osteoporosis: mother Active: yes Diet low in dairy products/other sources of calcium: no Postmenopausal woman: yes Take estrogen and/or progesterone medications: no Lost more than 2 inches in height since high school: yes Frequent falls: no Poor Health: no Hyperparathyroidism: no Adrenal Insufficiency: no MEDICATIONS: Prednisone or other steroids: no Thyroid Medications: Levothyroxine How Long: past 40 years Osteoporosis Medications: no Additional Medications: Cholesterol Meds, BP Meds x2, Reflux Meds, Anxiety Meds, Multi Vit., Vit D, C alcium, Zinc, Magnesium, Potasium Additional History: EXAM MEASUREMENTS: Bone mineral densitometry was performed using the SMRxT System. Bone mineral density as measured about the Lumbar spine is: ----- L1-L4(G/cm2): 1.241 T Score Values are as follows: ----- L1: -0.4 ----- L2: 0.8 ----- L3: 1.4 ----- L4: 0.1 ----- L1-L4: 0.5 Z Score Values are as follows: ----- L1: 0.1 ----- L2: 1.4 ----- L3: 2.0 ----- L4: 0.6 ----- L1-L4: 1.0 Baseline Study Bone mineral density about the R hip (g/cm2): 0.801 Bone mineral density about the L hip (g/cm2): 0.853 T Score values are as follows: -----R Neck: -2.1 -----L Neck: -2.4 -----R Total: -1.6 -----L Total: -1.2 Z Score values are as follows: -----R Neck: -1.2 -----L Neck: -1.4 -----R Total: -1.0 -----L Total: -0.5 Baseline Study FRAX%s: The graph provided illustrates a 12.3% chance for a major osteoporotic fx and a 2.9% chance f or the hips probability for fx in 10 years time. IMPRESSION: Osteopenia (T Score between -2.5 and -1). However, note that measurements are bordering on osteoporos is in the left femoral neck. There is slightly increased risk of fracture and the patient may be considered for treatment. Re-Screen 2-5 years. NOTE: T-SCORE=SD OF THE YOUNG ADULT MEAN.
--- NOTE | 2023-05-09 09:50 | MM ---
Reason for Exam: Screening (asymptomatic). Last mammogram was performed 1 year(s) and 4 month(s) ago. Patient History: Menarche at age 13. Patient has no children. Left ovary removed at age 67. Right ovary removed at age 67. Hysterectomy at age 67. Postmenopausal. 02/01/2021, Benign Core Biopsy on the right side. 01/28/2019, Benign Core Biopsy on the left side. Risk Values: Елена 5 year model risk: 3.2%. NCI Lifetime model risk: 8.7%. Prior Study Comparison: 01/22/2021 Right Diagnostic Mammogram, [facility]. 08/06/2021 Right Diagnostic Mammogram, [facility]. 01/23/2022 Bilateral MG 3D screening mammo w/cad, [facility]. Tissue Density: There are scattered fibroglandular densities. Findings: Analyzed By CAD. There is no suspicious group of microcalcifications or new suspicious mass in either breast. Overall Assessment: Benign, BI-RAD 2 Management: Screening Mammogram of both breasts in 1 year. . Patient should continue monthly self-breast exams. A clinical breast exam by your physician is recommended on an annual basis. This exam should not preclude additional follow-up of suspicious palpable abnormalities. Note on Елена scores and lifetime risk: 1. A Елена score greater than 3% is considered moderate risk. If this is the case, consider specialist referral to assess eligibility for a risk reducing agent. 2. If overall lifetime risk for the development of breast cancer is 20% or higher, the patient may qualify for future screening with alternating mammogram and breast MRI. Electronically signed and approved by: Ned Bear M.D. Radiologis
== END | disposition home or self-care (01) ==
LOC: RADMAMWWP 09:55
PROVIDERS: ATTEND Family Medicine
DX: Z12.31 Encounter for screening mammogram for malignant neoplasm of breast (principal); M85.89 Other specified disorders of bone density and structure, multiple sites; Z78.0 Asymptomatic menopausal state
CPT/HCPCS: 77063; 77067; 77080

== ENCOUNTER → 2023-05-29 | Outpatient (CLI) | payer MEDICARE ==
[2023-05-29 16:54] LABS: Basophils # (A) 0.04 X 10*3/uL (0.00-0.10); Basophils % (A) 0.8 %; Eosinophils # (A) 0.26 X 10*3/uL (0.04-0.35); Eosinophils % (A) 4.9 %; HCT 42.6 % (37.2-46.3); HGB 13.8 d/dL (12.0-15.0); Lymphocytes # (A) 1.57 X 10*3/uL (0.90-5.00); Lymphocytes % (A) 29.7 %; MCH 31.8 pg (27.0-32.0); MCHC 32.4 d/dL (32.0-37.0); MCV 98.2 FL (80.0-97.0); Mean Platelet Volume 9.9 FL (9.5-12.2); Monocytes # (A) 0.42 X 10*3/uL (0.20-1.00); Monocytes % (A) 7.9 %; NRBC Per 100 WBC 0 X 10*3/uL (0.00-0.01); Neutrophils # (A) 2.97 X 10*3/uL (1.80-7.70); Neutrophils % (A) 56.1 %; Platelet Count 177 X 10*3/uL (140-440); RBC 4.34 X 10*6/uL (4.10-5.20); RDW 13.3 % (11.5-14.5); WBC 5.29 X 10*3/uL (4.50-10.00)
[2023-05-29 18:11] LABS: ALT 36 U/L (8-44); AST 26 U/L (13-35); Albumin 4.2 d/dL (3.8-4.9); Albumin/Globulin Ratio 2.21 Ratio (1.60-3.17); Alkaline Phosphatase 85 U/L (41-126); Blood Urea Nitrogen 26.1 mg/dL (9.0-27.0); Calcium 9.8 mg/dL (8.7-10.3); Carbon Dioxide 26.8 mmol/L (21.6-31.8); Chloride 102 mmol/L (96-109); Chol/HDL Ratio 2.43 Ratio; Globulin 1.9 d/dL (1.6-3.3); Glucose 99 mg/dL (70-110); LDL Cholesterol,Calculated 72.8 mg/dL (0.0-131.0); Potassium 4.5 mmol/L (3.5-5.5); Sodium 141 mmol/L (135-145); T4, Free (Free Thyroxine) 1.48 ng/dL (0.80-1.80); Total Bilirubin 0.7 mg/dL (0.3-1.2); Total Protein 6.1 d/dL (6.2-8.2); VLDL Calculation 13.56 mg/dL (5.00-40.00)
== END | disposition home or self-care (01) ==
LOC: LABWHC1 09:00
PROVIDERS: ATTEND Family Medicine
DX: Z00.01 Encounter for general adult medical examination with abnormal findings (principal); I48.0 Paroxysmal atrial fibrillation; G45.9 Transient cerebral ischemic attack, unspecified; D51.9 Vitamin B12 deficiency anemia, unspecified; E55.9 Vitamin D deficiency, unspecified; R73.9 Hyperglycemia, unspecified
CPT/HCPCS: 36415; 80053; 80061; 82607; 83036; 84439; 84443; 85025

== ENCOUNTER → 2023-07-15 | Outpatient (CLI) | payer MEDICARE ==
[2023-07-15 09:23] LABS: INR 0.9 (<1.2)
[2023-07-15 09:34] LABS: Partial Thromboplastin Time 20.7 sec (22.0-30.0)
[2023-07-15 17:01] LABS: Prealbumin 23.3 mg/dL (18.0-42.0)
[2023-07-15 21:22] LABS: % Iron Saturation 31.94 (12.00-45.00); Chol/HDL Ratio 2.08 Ratio; Iron 107 UG/DL (50-170); LDL Cholesterol,Calculated 48.9 mg/dL (0.0-131.0); Phosphorus 3.7 mg/dL (2.4-5.1); Total Iron Binding Capacity 335 UG/DL (228-460); VLDL Calculation 13.78 mg/dL (5.00-40.00)
[2023-07-16 11:58] LABS: Zinc, Serum 87 ug/dL (60-130)
[2023-07-17 06:30] LABS: Vit B1(Thiamine) 151 ug/L (38-122)
[2023-07-17 11:46] LABS: Vitamin A 67 ug/dL (38-106)
== END | disposition home or self-care (01) ==
LOC: LABWHC1 07:40
PROVIDERS: ATTEND Surgery Plastic and Reconstructive Surgery
DX: E89.1 Postprocedural hypoinsulinemia (principal); D50.8 Other iron deficiency anemias; K91.2 Postsurgical malabsorption, not elsewhere classified; E46 Unspecified protein-calorie malnutrition; E44.0 Moderate protein-calorie malnutrition; E44.1 Mild protein-calorie malnutrition; E45 Retarded development following protein-calorie malnutrition; K74.1 Hepatic sclerosis; N19 Unspecified kidney failure; T56.894A Toxic effect of other metals, undetermined, initial encounter; E55.9 Vitamin D deficiency, unspecified; R94.31 Abnormal electrocardiogram [ECG] [EKG]
CPT/HCPCS: 36415; 80061; 82306; 82525; 82728; 82746; 83036; 83540; 83550; 83735; 83970; 84100; 84134; 84255; 84425; 84443; 84590; 84630; 85610; 85730; 93005

== ENCOUNTER 2023-07-16 11:12 | Day surgery (SDC) | payer MEDICARE ==
[2023-07-14 11:53] VITALS: BMI 42.6
--- NOTE | 2023-07-15 10:37 | P.HPOR ---
History of Present Illness H&P Date: 07/15/23 Subjective: This is a 73 year old female that presents today for follow up evaluation regarding a several month history of right ring finger pain with associated locking, catching and clicking. She denies any injury or inciting event. She's underwent steroid injection in September 2022 with good relief of her symptoms but she notes her symptoms have returned. She does have a history of a complex laceration at the level of the wrist in 1974 which she states several tendons were repaired but she has not had any issues with the hand since then. She denies any numbness or tingling. Physical Examination: RUE: AIN/PIN/Radial/Ulnar/Median motor intact. Radial/Ulnar/Median SILT. 2+/4 Radial/Ulnar pulses palpated. 5/5 APB, 5/5 FDI. Negative Finkelsteins, negative CMC grind, negative Durkan's compression. TTP over RRF A1 ronnie with locking and catching of the digit. Post surgical scars at level of wrist. FDP/FDS intact to all digits. Impression: 1.) Right ring finger trigger finger. Plan: Diagnosis and treatment options were discussed with the patient. She has failed conservative treatment and would like to proceed with a right ring finger A1 ronnie release. Risks and benefits of surgery including bleeding, infection, damage to surrounding tissue, need for further surgery, residual numbness were discussed and the patient wished to go forward with surgery. CC: Dr Maco Curry DO Orthopedic Hand/Upper Extremity Surgeon Past Medical History Past Medical History: CVA/TIA, Eye Disorder, GERD/Reflux, Hearing Disorder / Deafness, Hypertension, Mitral Valve Prolapse (MVP), Sleep Apnea/CPAP/BIPAP Additional Past Medical History / Comment(s): Hx TIA 1973, 2019, with some short term memory impairment, thoracic aortic aneurysm, fuchs dystrophy, restless leg syndrome, no longer requires CPAP for Sleep Apnea, bilateral hearing aid use. History of Any Multi-Drug Resistant Organisms: None Reported Date of last positivie culture/infection: 09/2018 MDRO Source:: NASAL SWAB Past Surgical History: Bariatric Surgery, Bladder Surgery, Cholecystectomy, Hysterectomy, Joint Replacement, Orthopedic Surgery Additional Past Surgical History / Comment(s): GASTRIC BYPASS, BILATERAL CATARACTS REMOVED, COLONOSCOPY, EGD, bilateral knee replacements, corrective surgery on right wrist, loop recorder inserted. Past Anesthesia/Blood Transfusion Reactions: No Reported Reaction Additional Past Anesthesia/Blood Transfusion Reaction / Comment(s): No hx blood transfusion. Past Psychological History: Depression Smoking Status: Never smoker Past Alcohol Use History: None Reported Past Drug Use History: None Reported - Past Family History Sister(s) Family Medical History: Cancer, Hypertension Additional Family Medical History / Comment(s): COLON CANCER. Mother Family Medical History: Cancer, Diabetes Mellitus, Hypertension, Neurologic Disorder Additional Family Medical History / Comment(s): CERVICAL CANCER, Parkinson's. Father Family Medical History: Hypertension Additional Family Medical History / Comment(s): "Half of lung didn't work." Brother(s) Family Medical History: Congestive Heart Failure (CHF), Hypertension Medications and Allergies Home Medications Medication Instructions Recorded Confirmed Type Ascorbic Acid [Vitamin C] 1,000 mg PO HS 01/02/18 07/14/23 History Multivitamins, Thera [Multivitamin 1 tab PO BID 01/02/18 07/14/23 History (formulary)] Potassium Chloride ER [K-Dur 20] 20 meq PO QAM 01/02/18 07/14/23 History lisinopriL [Zestril] 10 mg PO QAM 01/02/18 07/14/23 History Fluticasone Nasal [place] [Flonase 2 spr EA NOSTRIL HS 09/01/18 07/14/23 History Nasal [place]] Levothyroxine Sodium 112 mcg PO QAM 09/07/18 07/14/23 History Atorvastatin Calcium [Lipitor] 40 mg PO HS #30 tablet 03/07/20 07/14/23 Rx Metoprolol Tartrate 25 mg PO QAM 01/19/21 07/14/23 History Omeprazole Magnesium [PriLOSEC] 20 mg PO HS 01/19/21 07/14/23 History Ferrous Sulfate [Iron] 65 mg PO HS 06/04/22 07/14/23 History Apixaban [Eliquis] 5 mg PO BID 01/06/23 07/14/23 History Calcium Citrate/Vitamin D3 1 each PO BID 01/06/23 07/14/23 History [Citracal + D Maximum Caplet] Sodium Chloride 5% Ophth Soln 1 drops BOTH EYES TID 01/06/23 07/14/23 History [Manjit 128] Cholecalciferol [Vitamin D3 (25 25 mcg PO DAILY 07/14/23 07/14/23 History Mcg = 1000 Iu)] buPROPion HCL [Wellbutrin SR] 200 mg PO BID 07/14/23 07/14/23 History Allergies Allergy/AdvReac Type Severity Reaction Status Date / Time Tetracyclines Allergy Anaphylaxis Verified 07/14/23 11:08 Physical Examination Osteopathic Statement: *. No significant issues noted on an osteopathic structural exam other than those noted in the History and Physical/Consult.
[~2023-07-16 11:12] MED LIST changes: +Pre Op ABX Message 1 EACH MISC MISCELLANE ONE
[2023-07-16 12:22] VITALS: TEMP 97.7
[2023-07-16] MEDS ORDERED: LIDOCAINE 1% INJ 10MG/ML (20 ML MDV) ONE (13:12)
[2023-07-16] MEDS ORDERED: PROPOFOL 10 MG/ML 20 ML VIAL IV ONE (13:12)
[2023-07-16] MEDS ORDERED: MIDAZOLAM 2 MG/2 ML VIAL ONE (13:12)
[2023-07-16] MEDS ORDERED: fentaNYL (PF) 50 MCG/ML 2 ML AMP ONE (13:12)
[2023-07-16] MEDS ORDERED: LIDOCAINE 1% INJ 10MG/ML (30 ML VIAL-PF) SQ ONE (13:32)
[2023-07-16] MEDS ORDERED: BUPIVACAINE (PF) 0.5% 30 ML VIAL SQ ONE (13:33)
--- NOTE | 2023-07-16 13:37 | P.OP ---
Date of Procedure: 07/16/23 Preoperative Diagnosis: Right ring finger trigger finger Postoperative Diagnosis: Right ring finger trigger finger Procedure(s) Performed: Right ring finger A1 ronnie release Anesthesia: MAC Surgeon: Lon Curry Strainer Cleaner #1: Milind Boyd Estimated Blood Loss (ml): 0 Pathology: none sent Condition: stable Disposition: PACU Description of Procedure: This is a 73 year old female who presents today for a right ring finger trigger finger A1 ronnie release after having failed conservative treatment. Risks and benefits of surgery were discussed with the patient including bleeding, damage to surrounding tissue, infection, need for further surgery as well as risks of anesthesia including pulmonary embolism and even and the patient wished to proceed with surgical intervention. The patient was seen in the pre-operative area by myself. Consent and H&P were completed and updated. The correct extremity was marked in the pre-operative area by myself and all other questions were answered. Operative Narrative: The patient was brought to the operating room by the department of anesthesia. They remained on the portable stretcher and a rolling hand table was brought to the side of the operative extremity. Pre-operative time out was performed indicating the correct patient, procedure and laterality. All in the room agreed. Pre-operative antibiotics were given prior to skin incision. The patient was then drifted off to sleep by the department of anesthesia. MAC anesthesia was utilized and a 50:50 mixture of 1% Lidocaine and 0.5% bupivacaine was injected into the subcutaneous tissues of the palmar skin, 5ccs total. A nonsterile tourniquet was then applied to the operative extremity and the right upper extremity was then prepped and draped in normal sterile fashion. The operative extremity was the exsanguinated with an esmarch bandage and the tourniquet was inflated to 250mmHg. Oblique incision was made at the base of the ring finger. Blunt dissection was taken down to the level of the A1 ronnie. Ragnell retractors were placed both radially and ulnarly to protect neurovascular bundles. Littler tenotomy scissors were then used to release the A1 ronnie from proximal to distal under direct visualization. Proximal fascial attachments were released. The tendon was then taken through range of motion and no locking or catching was appreciated. The wound was then closed with interrupted 4-0 nylon sutures in a horizontal mattress fashion. Sterile dressing consisting of adaptic, 4x4s, webril, and an alis wrap was applied. Tourniquet was let down and the hand was immediately well perfused. The patient was then woken by the department of anesthesia and transferred to PACU in stable condition. Lon Curry D.O. Orthopedic Hand/Upper Extremity Surgeon
[2023-07-16 14:08] VITALS: PULSE 61
[2023-07-16 14:09] VITALS: RESP 20
[2023-07-16 14:35] VITALS: BP 104/69
== END 2023-07-16 14:31 | disposition home or self-care (01) ==
LOC: OR 11:12
PROVIDERS: ATTEND Orthopaedic Surgery Hand Surgery
DX: M65.341 Trigger finger, right ring finger (principal); F32.A Depression, unspecified; G25.81 Restless legs syndrome; I10 Essential (primary) hypertension; K21.9 Gastro-esophageal reflux disease without esophagitis; Z79.01 Long term (current) use of anticoagulants; Z79.890 Hormone replacement therapy; Z86.73 Personal history of transient ischemic attack (TIA), and cerebral infarction without residual deficits; Z79.899 Other long term (current) drug therapy
CPT/HCPCS: 26055; J2250; J2001 ×2; J3010; J2704; J0665

== ENCOUNTER 2023-07-23 07:38 | Day surgery (SDC) | payer MEDICARE ==
[2023-07-14 12:18] VITALS: BMI 42.6
[~2023-07-23 07:38] MED LIST changes: +HYDROmorphone 0.5 MG/0.5 ML SYRINGE IVP PRN; -LACTATED RINGERS 1,000 ML IV SCH; -LIDOCAINE 1% (10MG/ML) FOR IV START INTRADERMA PRN; -Pre Op ABX Message 1 EACH MISC MISCELLANE ONE
[2023-07-23] MEDS: LACTATED RINGERS 1,000 ML IV SCH ×2 (08:00→08:29)
[2023-07-23 08:25] VITALS: TEMP 97.1
[2023-07-23] MEDS ORDERED: PROPOFOL 10 MG/ML 20 ML VIAL IV ONE (08:30)
[2023-07-23] MEDS ORDERED: LIDOCAINE 1% INJ 10MG/ML (20 ML MDV) ONE (08:30)
--- NOTE | 2023-07-23 08:36 | P.GSHP ---
History of Present Illness H&P Date: 07/23/23 CHIEF COMPLAINT: GERD HISTORY OF PRESENT ILLNESS: The patient is a 73-year-old female who presents reports gastroesophageal reflux disease. Upper endoscopy was offered for further evaluation and management. PAST MEDICAL HISTORY: Please see list. PAST SURGICAL HISTORY: Please see list. MEDICATIONS: Please see list. ALLERGIES: Please see list. SOCIAL HISTORY: No illicit drug use FAMILY HISTORY: No reports of Crohn disease or ulcerative colitis. REVIEW OF ORGAN SYSTEMS: CONSTITUTIONAL: No reports of fevers or chills. GI: Denies any blood in stools or constipation. PHYSICAL EXAM: VITAL SIGNS: Stable GENERAL: Well-developed and pleasant in no acute distress. HEENT: No scleral icterus. Extraocular movements grossly intact. Moist buccal mucosa. NECK: Supple without lymphadenopathy. CHEST: Unlabored respirations. Equal bilateral excursions. CARDIOVASCULAR: Regular rate and rhythm. Distal 2+ pulses. ABDOMEN: Soft, nondistended. MUSCULOSKELETAL: No clubbing, cyanosis, or edema. ASSESSMENT: 1. Gastroesophageal reflux disease PLAN: 1. Recommend proceeding with an upper endoscopy Past Medical History Past Medical History: CVA/TIA, Eye Disorder, GERD/Reflux, Hearing Disorder / Deafness, Hypertension, Mitral Valve Prolapse (MVP), Sleep Apnea/CPAP/BIPAP Additional Past Medical History / Comment(s): Hx TIA 1973, 2019 with some short term memory impairment, thoracic aortic aneurysm, fuchs dystrophy, restless leg syndrome, bilateral hearing aid use. History of Any Multi-Drug Resistant Organisms: None Reported Date of last positivie culture/infection: 09/2018 MDRO Source:: NASAL SWAB Past Surgical History: Bariatric Surgery, Bladder Surgery, Cholecystectomy, Hysterectomy, Joint Replacement, Orthopedic Surgery Additional Past Surgical History / Comment(s): GASTRIC BYPASS, BILATERAL CATARACTS, COLONOSCOPY, EGD, bilateral knee replacements, corrective surgery on right wrist, loop recorder inserted. Past Anesthesia/Blood Transfusion Reactions: No Reported Reaction Additional Past Anesthesia/Blood Transfusion Reaction / Comment(s): No hx blood transfusion. Past Psychological History: Depression Smoking Status: Never smoker Past Alcohol Use History: None Reported Past Drug Use History: None Reported - Past Family History Sister(s) Family Medical History: Cancer, Hypertension Additional Family Medical History / Comment(s): COLON CANCER. Mother Family Medical History: Cancer, Diabetes Mellitus, Hypertension, Neurologic Disorder Additional Family Medical History / Comment(s): CERVICAL CANCER, Parkinson's. Father Family Medical History: Hypertension Additional Family Medical History / Comment(s): "Half of lung didn't work." Brother(s) Family Medical History: Congestive Heart Failure (CHF), Hypertension Medications and Allergies Home Medications Medication Instructions Recorded Confirmed Type Ascorbic Acid [Vitamin C] 1,000 mg PO HS 01/02/18 07/23/23 History Multivitamins, Thera [Multivitamin 1 tab PO BID 01/02/18 07/23/23 History (formulary)] Potassium Chloride ER [K-Dur 20] 20 meq PO QAM 01/02/18 07/23/23 History lisinopriL [Zestril] 10 mg PO QAM 01/02/18 07/23/23 History Fluticasone Nasal [place] [Flonase 2 spr EA NOSTRIL HS 09/01/18 07/23/23 History Nasal [place]] Levothyroxine Sodium 112 mcg PO QAM 09/07/18 07/23/23 History Atorvastatin Calcium [Lipitor] 40 mg PO HS #30 tablet 03/07/20 07/23/23 Rx Metoprolol Tartrate 25 mg PO QAM 01/19/21 07/23/23 History Omeprazole Magnesium [PriLOSEC] 20 mg PO HS 01/19/21 07/23/23 History Ferrous Sulfate [Iron] 65 mg PO HS 06/04/22 07/23/23 History Apixaban [Eliquis] 5 mg PO BID 01/06/23 07/23/23 History Calcium Citrate/Vitamin D3 1 each PO BID 01/06/23 07/23/23 History [Citracal + D Maximum Caplet] Sodium Chloride 5% Ophth Soln 1 drops BOTH EYES TID 01/06/23 07/23/23 History [Manjit 128] Cholecalciferol [Vitamin D3 (25 25 mcg PO DAILY 07/14/23 07/23/23 History Mcg = 1000 Iu)] buPROPion HCL [Wellbutrin SR] 200 mg PO BID 07/14/23 07/23/23 History Allergies Allergy/AdvReac Type Severity Reaction Status Date / Time Tetracyclines Allergy Anaphylaxis Verified 07/23/23 07:55 Surgical - Exam Vital Signs Temp Pulse Resp BP Pulse Ox 97.1 F L 68 18 177/79 98 07/23/23 07:54 07/23/23 07:54 07/23/23 07:54 07/23/23 07:54 07/23/23 07:54
--- NOTE | 2023-07-23 08:48 | P.PCN ---
Date of Procedure: 07/23/23 Description of Procedure: PREOPERATIVE DIAGNOSES: 1. Gastric esophageal reflux disease 2. History of gastric bypass. POSTOPERATIVE DIAGNOSES: 1. Gastric esophageal reflux disease 2. History of gastric bypass. 3. Diaphragmatic hiatal hernia PROCEDURE PERFORMED: Esophagogastrojejunoscopy of esophagus, gastric pouch, jejunum SURGEON: Hanny Harris MD ANESTHESIA: MAC. INDICATIONS: The patient is a 73-year-old female with prior history of Henry-en-Y gastric bypass and gastroesophageal reflux disease. Upper endoscopy is offered for further evaluation and management. DESCRIPTION: Patient was brought to the endoscopy suite and laid in the left lateral decubitus position. After adequate IV sedation, a bite block was placed. An Olympus gastroscope was passed along the posterior oropharynx down to the distal esophagus where the squamocolumnar junction was found at approximately 38 cm from the incisors. The anastomosis was found at 43 cm, consistent with approximately 5 cm gastric pouch. The scope was advanced 60 cm from the incisors. No evidence of foreign body was found. No evidence of active gastrojejunal ulcerations were encountered. The GI tract was desufflated. The patient tolerated the procedure well. FINDINGS: 1. No acute gastrojejunal ulceration. 2. No foreign body found along the anastomosis. 3. Biopsies obtained of gastric pouch, esophagus, jejunum 4. Sliding hiatal hernia, 3 cm, 38-41 cm from the incisors PLAN: 1. Recommend upper endoscopy as needed. 2. May benefit from additional studies such as upper GI barium study. Plan - Discharge Summary Discharge Rx Participant: Yes New Discharge Prescriptions: Continue Potassium Chloride ER [K-Dur 20] 20 meq PO QAM Multivitamins, Thera [Multivitamin (formulary)] 1 tab PO BID lisinopriL [Zestril] 10 mg PO QAM Ascorbic Acid [Vitamin C] 1,000 mg PO HS Fluticasone Nasal [place] [Flonase Nasal [place]] 2 spr EA NOSTRIL HS Levothyroxine Sodium 112 mcg PO QAM Atorvastatin Calcium [Lipitor] 40 mg PO HS #30 tablet Omeprazole Magnesium [PriLOSEC] 20 mg PO HS Apixaban [Eliquis] 5 mg PO BID Calcium Citrate/Vitamin D3 [Citracal + D Maximum Caplet] 1 each PO BID buPROPion HCL [Wellbutrin SR] 200 mg PO BID Metoprolol Tartrate 25 mg PO QAM Ferrous Sulfate [Iron] 65 mg PO HS Sodium Chloride 5% Ophth Soln [Manjit 128] 1 drops BOTH EYES TID Cholecalciferol [Vitamin D3 (25 Mcg = 1000 Iu)] 25 mcg PO DAILY Discharge Medication List Ascorbic Acid [Vitamin C] 1,000 mg PO HS 01/02/18 [History] Multivitamins, Thera [Multivitamin (formulary)] 1 tab PO BID 01/02/18 [History] Potassium Chloride ER [K-Dur 20] 20 meq PO QAM 01/02/18 [History] lisinopriL [Zestril] 10 mg PO QAM 01/02/18 [History] Fluticasone Nasal [place] [Flonase Nasal [place]] 2 spr EA NOSTRIL HS 09/01/18 [History] Levothyroxine Sodium 112 mcg PO QAM 09/07/18 [History] Atorvastatin Calcium [Lipitor] 40 mg PO HS #30 tablet 03/07/20 [Rx] Metoprolol Tartrate 25 mg PO QAM 01/19/21 [History] Omeprazole Magnesium [PriLOSEC] 20 mg PO HS 01/19/21 [History] Ferrous Sulfate [Iron] 65 mg PO HS 06/04/22 [History] Apixaban [Eliquis] 5 mg PO BID 01/06/23 [History] Calcium Citrate/Vitamin D3 [Citracal + D Maximum Caplet] 1 each PO BID 01/06/23 [History] Sodium Chloride 5% Ophth Soln [Manjit 128] 1 drops BOTH EYES TID 01/06/23 [History] Cholecalciferol [Vitamin D3 (25 Mcg = 1000 Iu)] 25 mcg PO DAILY 07/14/23 [History] buPROPion HCL [Wellbutrin SR] 200 mg PO BID 07/14/23 [History] [facility] [facility] [place] [place] Patient Instructions/Handouts: Hiatal Hernia (DC) Activity/Diet/Wound Care/Special Instructions: Start blood thinner Friday, 07/25 Discharge Disposition: HOME SELF-CARE
[2023-07-23 08:56] VITALS: RESP 16
[2023-07-23 09:24] VITALS: BP 117/81; PULSE 61
== END 2023-07-23 09:25 | disposition home or self-care (01) ==
LOC: ORWHC2ENDO 07:38
PROVIDERS: ATTEND Surgery Plastic and Reconstructive Surgery
DX: K29.50 Unspecified chronic gastritis without bleeding (principal); K21.9 Gastro-esophageal reflux disease without esophagitis; K44.9 Diaphragmatic hernia without obstruction or gangrene; I10 Essential (primary) hypertension; I34.1 Nonrheumatic mitral (valve) prolapse; G47.33 Obstructive sleep apnea (adult) (pediatric); H91.90 Unspecified hearing loss, unspecified ear; I71.20 Thoracic aortic aneurysm, without rupture, unspecified; G25.81 Restless legs syndrome; F32.A Depression, unspecified; Z90.49 Acquired absence of other specified parts of digestive tract; Z86.73 Personal history of transient ischemic attack (TIA), and cerebral infarction without residual deficits; Z90.710 Acquired absence of both cervix and uterus; Z98.890 Other specified postprocedural states; Z96.653 Presence of artificial knee joint, bilateral; Z80.0 Family history of malignant neoplasm of digestive organs; Z83.3 Family history of diabetes mellitus; Z82.49 Family history of ischemic heart disease and other diseases of the circulatory system; Z98.84 Bariatric surgery status; Z79.01 Long term (current) use of anticoagulants; Z79.899 Other long term (current) drug therapy; Z88.1 Allergy status to other antibiotic agents
CPT/HCPCS: 88305; 43239; J2001; J2704

== ENCOUNTER → 2023-08-13 | Outpatient (CLI) | payer MEDICARE ==
[2023-08-13 14:38] VITALS: BP 151/81; PULSE 98; TEMP 97.7; BMI 46.8
--- NOTE | 2023-08-13 14:42 | P.BASOAP ---
Subjective Progress Note Date: 08/13/23 DATE OF SERVICE: 08/13/23 CHIEF COMPLAINT: Morbid obesity HISTORY OF PRESENT ILLNESS: Symone Quintero is a 73-year-old female who comes with lifelong morbid obesity. She is status post gastric bypass however comes in with symptomatic gastroesophageal reflux disease due to hiatal hernia. She has personal history of hypertensive heart disease. She is looking for more weight loss. She presents for further assessment. At height of 5 feet 1 inches, her ideal body weight is 131 pounds. She comes in 248 pounds. Her body mass index is 46.9. She is 117 pounds overweight. PAST MEDICAL HISTORY: 1. Morbid obesity due to excess calories 2. Body mass index of 38.0, initial 3. Hypertensive heart disease 4. Hypothyroidism 5. Gastroesophageal reflux disease 6. Iron deficiency anemia 7. Atrial fibrillation 8. Depressive disorder 9. Hyperlipidemia 10. Osteoarthritis bilateral knees 11. Osteoarthritis bilateral hips 12. Cerebrovascular accident 13. Hearing disorder 14. Obstructive sleep apnea 15. Mitral valve prolapse 16. Thoracic artery aneurysm 17. Restless leg syndrome 18. Bilateral eye disorder 19. Fuchs dystrophy PAST SURGICAL HISTORY: 1. Gastric bypass 2. Colonoscopy 3. EGD 4. Bilateral knee replacement 5. Right wrist surgery 6. Loop recorder 7. Cholecystectomy 8. Bladder surgery 9. Hysterectomy HOME MEDICATIONS: Home Medications Medication Instructions Recorded Confirmed Ascorbic Acid [Vitamin C] 1,000 mg PO HS 01/02/18 08/13/23 Multivitamins, Thera [Multivitamin 1 tab PO BID 01/02/18 08/13/23 (formulary)] Potassium Chloride ER [K-Dur 20] 20 meq PO QAM 01/02/18 08/13/23 lisinopriL [Zestril] 10 mg PO QA 01/02/18 08/13/23 Fluticasone Nasal [place] [Flonase 2 spr EA NOSTRIL HS 09/01/18 08/13/23 Nasal [place]] Levothyroxine Sodium 112 mcg PO QAM 09/07/18 08/13/23 Metoprolol Tartrate 25 mg PO QAM 01/19/21 08/13/23 Omeprazole Magnesium [PriLOSEC] 20 mg PO HS 01/19/21 08/13/23 Ferrous Sulfate [Iron] 65 mg PO HS 06/04/22 08/13/23 Apixaban [Eliquis] 5 mg PO BID 01/06/23 08/13/23 Calcium Citrate/Vitamin D3 1 each PO BID 01/06/23 08/13/23 [Citracal + D Maximum Caplet] Sodium Chloride 5% Ophth Soln 1 drops BOTH EYES TID 01/06/23 08/13/23 [Manjit 128] Cholecalciferol [Vitamin D3 (25 25 mcg PO DAILY 07/14/23 08/13/23 Mcg = 1000 Iu)] buPROPion HCL [Wellbutrin SR] 200 mg PO BID 07/14/23 08/13/23 Previous Rx's Medication Instructions Recorded Atorvastatin Calcium [Lipitor] 40 mg PO HS #30 tablet 03/07/20 ALLERGIES: Allergies Allergy/AdvReac Type Severity Reaction Status Date / Time Tetracyclines Allergy Anaphylaxis Verified 07/23/23 07:55 SOCIAL HISTORY: Past tobacco use. FAMILY HISTORY: No family history of ulcerative colitis disease or Crohn's disease. Family history of morbid obesity. No lupus in the family. No reports of stomach or esophageal cancer. Family history of colon cancer and cervical cancer. REVIEW OF ORGAN SYSTEMS: CONSTITUTIONAL: At height of 5 feet 1 inches, her ideal body weight is 131 pounds. She comes in 248 pounds. Her body mass index is 46.9. She is 117 pounds overweight. HEENT: Has active troubles with vision or hearing. ENDOCRINE: Has diabetes. No hypothyroidism. CARDIOVASCULAR: Past reports of palpitations or heart attacks or chest pain. Has hypertensive heart disease. Has mitral valve prolapse. RESPIRATORY: Has daytime somnolence. Has asthma. Has chronic obstructive pulmonary disease. GASTROINTESTINAL: Denies any bright red blood per rectum. No diarrhea. No constipation. Has gastroesophageal reflux disease. GENITOURINARY: Denies bladder urgency. No recent blood in urine MUSCULOSKELETAL: Has lower back pain and joint pain. Has osteoarthritis of the knees. NEURO: No headaches. No seizure disorders. Prior transient ischemic accident. PSYCH: Denies depression. No suicidal ideation. RHEUMATOLOGIC: No lupus. Has rheumatoid arthritis HEMATOLOGIC: Denies any abnormal bleeding or bruising. On blood thinners. SKIN: Has psoriasis. No skin cancer. PHYSICAL EXAM: VITAL SIGNS: Height 5 foot 1 inches, weight 248 pounds. BMI 46.9 Vital Signs Temp 97.7 F 08/13/23 14:13 Pulse 98 08/13/23 14:13 Resp BP 151/81 08/13/23 14:13 Pulse Ox FiO2 GENERAL: Well-developed in no acute distress. HEENT: No scleral icterus. Extraocular movements grossly intact. Hears conversational speech. No nasal drainage. NECK: Supple without lymphadenopathy. CHEST: Nonlabored respirations with equal bilateral excursions. CARDIOVASCULAR: Regular rate and regular rhythm. Distal 2+ pulses. ABDOMEN: Obese, soft, nontender, nondistended. MUSCULOSKELETAL: No clubbing, cyanosis. NEURO: No focal or lateralizing signs. Cranial nerves 2 through 12 grossly within normal limits. PSYCH: Appropriate affect. Alert and oriented to person, place and time. SKIN: Good skin turgor. Well perfused. LABS: Reviewed. No vitamin deficiencies EKG: Abnormal with anterior infarct EGD FINDINGS: 1. No acute gastrojejunal ulceration. 2. No foreign body found along the anastomosis. 3. Biopsies obtained of gastric pouch, esophagus, jejunum 4. Sliding hiatal hernia, 3 cm, 38-41 cm from the incisors Final Pathologic Diagnosis A. DUODENUM, BIOPSY: Benign small bowel mucosa with intact villous architecture, negative for histopathologic abnormality. B. GASTRIC ANTRUM, BIOPSY: Reactive gastropathy. Helicobacter pylori organisms are not identified on routine H+E sections. C. ESOPHAGUS, BIOPSY: Benign squamous mucosa without significant histopathologic changes. ASSESSMENT: 1. Morbid obesity due to excess calories 2. Body mass index of 38.0, initial 3. Hypertensive heart disease 4. Hypothyroidism 5. Gastroesophageal reflux disease 6. Iron deficiency anemia 7. Atrial fibrillation 8. Depressive disorder 9. Hyperlipidemia 10. Osteoarthritis bilateral knees 11. Osteoarthritis bilateral hips 12. Cerebrovascular accident 13. Hearing disorder 14. Obstructive sleep apnea 15. Mitral valve prolapse 16. Thoracic artery aneurysm 17. Restless leg syndrome 18. Bilateral eye disorder 19. Fuchs dystrophy 20. Diaphragmatic hiatal hernia PLAN: 1. She has symptomatic diaphragmatic hiatal hernia rectum diaphragmatic hiatal hernia repair. 2. She has abnormal EKG will need cardiac risk assessment 3. She is elevated risk for complications with pre-existing heart disease and gastric bypass. 4. Will need 2 weeks high protein low carbohydrate diet Objective - Vital Signs Vital signs: Vital Signs Temp 97.7 F 08/13/23 14:13 Pulse 98 08/13/23 14:13 Resp BP 151/81 08/13/23 14:13 Pulse Ox FiO2 Intake & Output 08/12/23 08/13/23 08/13/23 18:59 06:59 18:59 Weight 112.491 kg Assessment/Plan Plan: Date: 08/13/23 Initial Weight: Initial BMI: Current Weight: 112.491 kg Current BMI: 46.8 Type of Surgery: Total Volume in Band: Previous Volume: Volume Removed: Volume Added: Band Size:
== END ==
LOC: BARWHC3 13:30
PROVIDERS: ATTEND Surgery Plastic and Reconstructive Surgery
DX: E66.01 Morbid (severe) obesity due to excess calories (principal); I11.9 Hypertensive heart disease without heart failure; E03.9 Hypothyroidism, unspecified; K21.9 Gastro-esophageal reflux disease without esophagitis; D50.9 Iron deficiency anemia, unspecified; I48.91 Unspecified atrial fibrillation; F32.A Depression, unspecified; E78.5 Hyperlipidemia, unspecified; M17.0 Bilateral primary osteoarthritis of knee; M16.0 Bilateral primary osteoarthritis of hip; I63.9 Cerebral infarction, unspecified; H93.90 Unspecified disorder of ear, unspecified ear; G47.33 Obstructive sleep apnea (adult) (pediatric); I34.1 Nonrheumatic mitral (valve) prolapse; I71.20 Thoracic aortic aneurysm, without rupture, unspecified; G25.81 Restless legs syndrome; H18.519 Endothelial corneal dystrophy, unspecified eye; K44.9 Diaphragmatic hernia without obstruction or gangrene; H57.9 Unspecified disorder of eye and adnexa; Z87.891 Personal history of nicotine dependence; Z88.1 Allergy status to other antibiotic agents; Z98.84 Bariatric surgery status; Z79.890 Hormone replacement therapy; Z79.899 Other long term (current) drug therapy; Z79.01 Long term (current) use of anticoagulants; Z68.38 Body mass index [BMI] 38.0-38.9, adult
CPT/HCPCS: 99211

== ENCOUNTER → 2023-09-01 | Outpatient (CLI) | payer MEDICARE ==
[2023-09-02 10:44] VITALS: BMI 46.3
== END ==
LOC: BARWHC3 13:07
PROVIDERS: ATTEND Surgery Plastic and Reconstructive Surgery
DX: E66.01 Morbid (severe) obesity due to excess calories (principal); Z71.3 Dietary counseling and surveillance; Z68.42 Body mass index [BMI] 45.0-49.9, adult; Z88.1 Allergy status to other antibiotic agents
CPT/HCPCS: 97804; G0463; 99211

== ENCOUNTER → 2023-10-21 | Outpatient (CLI) | payer MEDICARE ==
[2023-10-21 17:28] LABS: Basophils # (A) 0.05 X 10*3/uL (0.00-0.10); Basophils % (A) 0.9 %; Eosinophils # (A) 0.35 X 10*3/uL (0.04-0.35); Eosinophils % (A) 6.6 %; HCT 47.6 % (37.2-46.3); HGB 15.3 g/dL (12.0-15.0); Lymphocytes # (A) 1.82 X 10*3/uL (0.90-5.00); Lymphocytes % (A) 34.1 %; MCH 31.4 pg (27.0-32.0); MCHC 32.1 g/dL (32.0-37.0); MCV 97.7 FL (80.0-97.0); Mean Platelet Volume 9.9 FL (9.5-12.2); Monocytes # (A) 0.44 X 10*3/uL (0.20-1.00); Monocytes % (A) 8.3 %; NRBC Per 100 WBC 0 X 10*3/uL (0.00-0.01); Neutrophils # (A) 2.65 X 10*3/uL (1.80-7.70); Neutrophils % (A) 49.7 %; Platelet Count 177 X 10*3/uL (140-440); RBC 4.87 X 10*6/uL (4.10-5.20); RDW 13.1 % (11.5-14.5); WBC 5.33 X 10*3/uL (4.50-10.00)
[2023-10-21 17:59] LABS: Blood Urea Nitrogen 30.5 mg/dL (9.0-27.0); Glucose 98 mg/dL (70-110)
[2023-10-21 18:00] LABS: ALT 43 U/L (8-44); AST 36 U/L (13-35); Albumin 4.3 g/dL (3.8-4.9); Albumin/Globulin Ratio 2.15 Ratio (1.60-3.17); Alkaline Phosphatase 87 U/L (41-126); Calcium 9.9 mg/dL (8.7-10.3); Carbon Dioxide 19.5 mmol/L (21.6-31.8); Chloride 105 mmol/L (96-109); Potassium 4.5 mmol/L (3.5-5.5); Sodium 140 mmol/L (135-145); Total Bilirubin 0.7 mg/dL (0.3-1.2); Total Protein 6.3 g/dL (6.2-8.2)
== END | disposition home or self-care (01) ==
LOC: LABPAT 10:01
PROVIDERS: ATTEND Surgery Plastic and Reconstructive Surgery
DX: Z01.812 Encounter for preprocedural laboratory examination (principal)
CPT/HCPCS: 36415; 80053; 85025; 86850; 86900; 86901

== ENCOUNTER 2023-10-27 06:51 | Day surgery (SDC) | payer MEDICARE ==
[~2023-10-27 06:51] MED LIST changes: +ACETAMINOPHEN TAB 500 MG TAB PO PRN; +HEPARIN SODIUM,PORCINE 5,000 UNIT/ML 1 ML VIAL SQ PRN; -HYDROmorphone 0.5 MG/0.5 ML SYRINGE IVP PRN; +ONDANSETRON 4 MG/2 ML VIAL IVP PRN
[2023-10-27] MEDS ORDERED: MIDAZOLAM 2 MG/2 ML VIAL IV PRN (07:00)
[2023-10-27] MEDS ORDERED: HYDROmorphone 0.5 MG/0.5 ML SYRINGE IVP PRN (07:00)
[2023-10-27] MEDS: LACTATED RINGERS 1,000 ML IV SCH (07:24)
--- NOTE | 2023-10-27 07:39 | P.GSHP ---
History of Present Illness H&P Date: 10/27/23 CHIEF COMPLAINT: Symptomatic diaphragmatic hiatal hernia HISTORY OF PRESENT ILLNESS: Symone Quintero is a 73-year-old female who comes with lifelong morbid obesity. She is status post gastric bypass however comes in with symptomatic gastroesophageal reflux disease due to hiatal hernia. She has personal history of hypertensive heart disease. She reports atypical chest pain including dysphagia due to her hiatal hernia presents for surgical intervention. At height of 5 feet 1 inches, her ideal body weight is 131 pounds. She was 248 pounds. She comes in 230 pounds. Her body mass index was 46.9. She is 99pounds overweight. PAST MEDICAL HISTORY: 1. Morbid obesity due to excess calories 2. Body mass index of 46.9 3. Hypertensive heart disease 4. Hypothyroidism 5. Gastroesophageal reflux disease 6. Iron deficiency anemia 7. Atrial fibrillation 8. Depressive disorder 9. Hyperlipidemia 10. Osteoarthritis bilateral knees 11. Osteoarthritis bilateral hips 12. Cerebrovascular accident 13. Hearing disorder 14. Obstructive sleep apnea 15. Mitral valve prolapse 16. Thoracic artery aneurysm 17. Restless leg syndrome 18. Bilateral eye disorder 19. Fuchs dystrophy PAST SURGICAL HISTORY: 1. Gastric bypass 2. Colonoscopy 3. EGD 4. Bilateral knee replacement 5. Right wrist surgery 6. Loop recorder 7. Cholecystectomy 8. Bladder surgery 9. Hysterectomy HOME MEDICATIONS: Home Medications Medication Instructions Recorded Confirmed Ascorbic Acid [Vitamin C] 1,000 mg PO HS 01/02/18 08/13/23 Multivitamins, Thera [Multivitamin 1 tab PO BID 01/02/18 08/13/23 (formulary)] Potassium Chloride ER [K-Dur 20] 20 meq PO QAM 01/02/18 08/13/23 lisinopriL [Zestril] 10 mg PO QAM 01/02/18 08/13/23 Fluticasone Nasal [place] [Flonase 2 spr EA NOSTRIL HS 09/01/18 08/13/23 Nasal [place]] Levothyroxine Sodium 112 mcg PO QAM 09/07/18 08/13/23 Metoprolol Tartrate 25 mg PO QAM 01/19/21 08/13/23 Omeprazole Magnesium [PriLOSEC] 20 mg PO HS 01/19/21 08/13/23 Ferrous Sulfate [Iron] 65 mg PO HS 06/04/22 08/13/23 Apixaban [Eliquis] 5 mg PO BID 01/06/23 08/13/23 Calcium Citrate/Vitamin D3 1 each PO BID 01/06/23 08/13/23 [Citracal + D Maximum Caplet] Sodium Chloride 5% Ophth Soln 1 drops BOTH EYES TID 01/06/23 08/13/23 [Manjit 128] Cholecalciferol [Vitamin D3 (25 25 mcg PO DAILY 07/14/23 08/13/23 Mcg = 1000 Iu)] buPROPion HCL [Wellbutrin SR] 200 mg PO BID 07/14/23 08/13/23 Previous Rx's Medication Instructions Recorded Atorvastatin Calcium [Lipitor] 40 mg PO HS #30 tablet 03/07/20 ALLERGIES: Allergies Allergy/AdvReac Type Severity Reaction Status Date / Time Tetracyclines Allergy Anaphylaxis Verified 07/23/23 07:55 SOCIAL HISTORY: Past tobacco use. FAMILY HISTORY: No family history of ulcerative colitis disease or Crohn's disease. Family history of morbid obesity. No lupus in the family. No reports of stomach or esophageal cancer. Family history of colon cancer and cervical cancer. REVIEW OF ORGAN SYSTEMS: CONSTITUTIONAL: At height of 5 feet 1 inches, her ideal body weight is 131 pounds. She comes in 248 pounds. Her body mass index is 46.9. She is 117 pounds overweight. HEENT: Has active troubles with vision or hearing. ENDOCRINE: Has diabetes. No hypothyroidism. CARDIOVASCULAR: Past reports of palpitations or heart attacks or chest pain. Has hypertensive heart disease. Has mitral valve prolapse. RESPIRATORY: Has daytime somnolence. Has asthma. Has chronic obstructive pulmonary disease. GASTROINTESTINAL: Denies any bright red blood per rectum. No diarrhea. No constipation. Has gastroesophageal reflux disease. GENITOURINARY: Denies bladder urgency. No recent blood in urine MUSCULOSKELETAL: Has lower back pain and joint pain. Has osteoarthritis of the knees. NEURO: No headaches. No seizure disorders. Prior transient ischemic accident. PSYCH: Denies depression. No suicidal ideation. RHEUMATOLOGIC: No lupus. Has rheumatoid arthritis HEMATOLOGIC: Denies any abnormal bleeding or bruising. On blood thinners. SKIN: Has psoriasis. No skin cancer. PHYSICAL EXAM: VITAL SIGNS: Height 5 foot 1 inches, weight 248 pounds. BMI 46.9 GENERAL: Well-developed in no acute distress. HEENT: No scleral icterus. Extraocular movements grossly intact. Hears conversational speech. No nasal drainage. NECK: Supple without lymphadenopathy. CHEST: Nonlabored respirations with equal bilateral excursions. CARDIOVASCULAR: Regular rate and regular rhythm. Distal 2+ pulses. ABDOMEN: Obese, soft, nontender, nondistended. MUSCULOSKELETAL: No clubbing, cyanosis. NEURO: No focal or lateralizing signs. Cranial nerves 2 through 12 grossly within normal limits. PSYCH: Appropriate affect. Alert and oriented to person, place and time. SKIN: Good skin turgor. Well perfused. ASSESSMENT: 1. Morbid obesity due to excess calories 2. Body mass index of 46.9 3. Hypertensive heart disease 4. Hypothyroidism 5. Gastroesophageal reflux disease 6. Iron deficiency anemia 7. Atrial fibrillation 8. Depressive disorder 9. Hyperlipidemia 10. Osteoarthritis bilateral knees 11. Osteoarthritis bilateral hips 12. Cerebrovascular accident 13. Hearing disorder 14. Obstructive sleep apnea 15. Mitral valve prolapse 16. Thoracic artery aneurysm 17. Restless leg syndrome 18. Bilateral eye disorder 19. Fuchs dystrophy 20. Diaphragmatic hiatal hernia PLAN: 1. She has symptomatic diaphragmatic hiatal hernia rectum diaphragmatic hiatal hernia repair. 2. She is elevated risk for complications with pre-existing heart disease and gastric bypass. 3. Inpatient hospitalization postop described due to pre-existing multiple comorbidities Past Medical History Past Medical History: CVA/TIA, Eye Disorder, GERD/Reflux, Hearing Disorder / Deafness, Hypertension, Memory Impairment, Mitral Valve Prolapse (MVP), Sleep Apnea/CPAP/BIPAP Additional Past Medical History / Comment(s): Hx TIA 1973, 2019 with some short term memory impairment, thoracic aortic aneurysm, fuchs dystrophy, restless leg syndrome, bilateral hearing aid use. no cpap used History of Any Multi-Drug Resistant Organisms: None Reported Date of last positivie culture/infection: 09/2018 MDRO Source:: NASAL SWAB Past Surgical History: Bariatric Surgery, Bladder Surgery, Cholecystectomy, Hysterectomy, Joint Replacement, Orthopedic Surgery Additional Past Surgical History / Comment(s): GASTRIC BYPASS, BILATERAL CATARACTS, COLONOSCOPY, EGD, bilateral knee replacements, corrective surgery on right wrist, loop recorder inserted. trigger finger surgery Past Anesthesia/Blood Transfusion Reactions: No Reported Reaction Additional Past Anesthesia/Blood Transfusion Reaction / Comment(s): No hx blood transfusion. Smoking Status: Never smoker - Past Family History Sister(s) Family Medical History: Cancer, Hypertension Additional Family Medical History / Comment(s): COLON CANCER. Mother Family Medical History: Cancer, Diabetes Mellitus, Hypertension, Neurologic Disorder Additional Family Medical History / Comment(s): CERVICAL CANCER, Parkinson's. Father Family Medical History: Hypertension Additional Family Medical History / Comment(s): "Half of lung didn't work." Brother(s) Family Medical History: Congestive Heart Failure (CHF), Hypertension Medications and Allergies Home Medications Medication Instructions Recorded Confirmed Type Ascorbic Acid [Vitamin C] 1,000 mg PO HS 01/02/18 10/27/23 History Multivitamins, Thera [Multivitamin 1 tab PO BID 01/02/18 10/27/23 History (formulary)] Potassium Chloride ER [K-Dur 20] 20 meq PO QAM 01/02/18 10/27/23 History lisinopriL [Zestril] 10 mg PO HS 01/02/18 10/27/23 History Fluticasone Nasal [place] [Flonase 2 spr EA NOSTRIL HS 09/01/18 10/27/23 History Nasal [place]] Levothyroxine Sodium 112 mcg PO QAM 09/07/18 10/27/23 History Atorvastatin Calcium [Lipitor] 40 mg PO HS #30 tablet 03/07/20 10/27/23 Rx Metoprolol Tartrate 25 mg PO QAM 01/19/21 10/27/23 History Omeprazole Magnesium [PriLOSEC] 20 mg PO HS 01/19/21 10/27/23 History Ferrous Sulfate [Iron] 65 mg PO HS 06/04/22 10/27/23 History Apixaban [Eliquis] 5 mg PO BID 01/06/23 10/27/23 History Calcium Citrate/Vitamin D3 1 each PO BID 01/06/23 10/27/23 History [Citracal + D Maximum Caplet] buPROPion HCL [Wellbutrin SR] 200 mg PO BID 07/14/23 10/27/23 History Allergies Allergy/AdvReac Type Severity Reaction Status Date / Time Tetracyclines Allergy Anaphylaxis Verified 10/27/23 07:15
[2023-10-27] MEDS ORDERED: GLYCOPYRROLATE 0.2 MG/ML 2 ML VIAL ONE (09:45)
[2023-10-27] MEDS ORDERED: ROCURONIUM 10 MG/ML (5 ML VIAL) IV ONE (09:45)
[2023-10-27] MEDS ORDERED: fentaNYL (PF) 50 MCG/ML 2 ML AMP ONE (09:45)
[2023-10-27] MEDS ORDERED: NEOSTIGMINE 1 MG/ML 10 ML VIAL ONE (09:45)
[2023-10-27] MEDS ORDERED: PROPOFOL 10 MG/ML 20 ML VIAL IV ONE (09:45)
[2023-10-27] MEDS ORDERED: MIDAZOLAM 2 MG/2 ML VIAL ONE (09:45)
[2023-10-27] MEDS ORDERED: SUCCINYLCHOLINE CHLORIDE 200 MG/10 ML VIAL IV ONE (09:45)
[2023-10-27] MEDS ORDERED: LIDOCAINE 1% INJ 10MG/ML (20 ML MDV) ONE (09:45)
[2023-10-27] MEDS: LIDOCAINE 1%-EPI 1:100,000 50 ML VIAL SQ ONE ×2 (10:22→10:25)
[2023-10-27 11:34] VITALS: RESP 16; TEMP 96.8
--- NOTE | 2023-10-27 11:34 | P.OP ---
Date of Procedure: 10/27/23 Description of Procedure: Robotic hiatal hernia repair aborted for lysis of adhesions. Moderate perihepatic including perigastric adhesions creating a false/pseudo hiatal hernia. After moderate lysis of adhesions, upper endoscopy and diagnostic laparoscopy demonstrated no residual hiatal hernia present. EBL 10 due to history of blood thinners. Plan - Discharge Summary Discharge Rx Participant: No New Discharge Prescriptions: No Action Potassium Chloride ER [K-Dur 20] 20 meq PO QAM Multivitamins, Thera [Multivitamin (formulary)] 1 tab PO BID lisinopriL [Zestril] 10 mg PO HS Ascorbic Acid [Vitamin C] 1,000 mg PO HS Fluticasone Nasal [place] [Flonase Nasal [place]] 2 spr EA NOSTRIL HS Levothyroxine Sodium 112 mcg PO QAM Atorvastatin Calcium [Lipitor] 40 mg PO HS #30 tablet Omeprazole Magnesium [PriLOSEC] 20 mg PO HS Apixaban [Eliquis] 5 mg PO BID Calcium Citrate/Vitamin D3 [Citracal + D Maximum Caplet] 1 each PO BID buPROPion HCL [Wellbutrin SR] 200 mg PO BID Metoprolol Tartrate 25 mg PO QAM Ferrous Sulfate [Iron] 65 mg PO HS Discharge Medication List Ascorbic Acid [Vitamin C] 1,000 mg PO HS 01/02/18 [History] Multivitamins, Thera [Multivitamin (formulary)] 1 tab PO BID 01/02/18 [History] Potassium Chloride ER [K-Dur 20] 20 meq PO QAM 01/02/18 [History] lisinopriL [Zestril] 10 mg PO HS 01/02/18 [History] Fluticasone Nasal [place] [Flonase Nasal [place]] 2 spr EA NOSTRIL HS 09/01/18 [History] Levothyroxine Sodium 112 mcg PO QAM 09/07/18 [History] Atorvastatin Calcium [Lipitor] 40 mg PO HS #30 tablet 03/07/20 [Rx] Metoprolol Tartrate 25 mg PO QAM 01/19/21 [History] Omeprazole Magnesium [PriLOSEC] 20 mg PO HS 01/19/21 [History] Ferrous Sulfate [Iron] 65 mg PO HS 06/04/22 [History] Apixaban [Eliquis] 5 mg PO BID 01/06/23 [History] Calcium Citrate/Vitamin D3 [Citracal + D Maximum Caplet] 1 each PO BID 01/06/23 [History] buPROPion HCL [Wellbutrin SR] 200 mg PO BID 07/14/23 [History]
[2023-10-27] MEDS: HYDROmorphone 0.5 MG/0.5 ML SYRINGE IVP ONE (11:52)
[2023-10-27] MEDS: KETOROLAC 15 MG/ML 1 ML VIAL IVP ONE (12:15)
[2023-10-27 13:57] VITALS: BP 100/60; PULSE 56
== END 2023-10-27 13:43 | disposition home or self-care (01) ==
LOC: OR 06:51
PROVIDERS: ATTEND Surgery Plastic and Reconstructive Surgery
DX: K44.9 Diaphragmatic hernia without obstruction or gangrene (principal); K66.0 Peritoneal adhesions (postprocedural) (postinfection); D50.9 Iron deficiency anemia, unspecified; E03.9 Hypothyroidism, unspecified; E66.01 Morbid (severe) obesity due to excess calories; E78.5 Hyperlipidemia, unspecified; F32.A Depression, unspecified; G25.81 Restless legs syndrome; G47.33 Obstructive sleep apnea (adult) (pediatric); I11.9 Hypertensive heart disease without heart failure; I34.1 Nonrheumatic mitral (valve) prolapse; M19.90 Unspecified osteoarthritis, unspecified site; I48.91 Unspecified atrial fibrillation; K21.9 Gastro-esophageal reflux disease without esophagitis; Z68.42 Body mass index [BMI] 45.0-49.9, adult; Z79.01 Long term (current) use of anticoagulants; Z79.890 Hormone replacement therapy; Z80.0 Family history of malignant neoplasm of digestive organs; Z86.73 Personal history of transient ischemic attack (TIA), and cerebral infarction without residual deficits; Z90.49 Acquired absence of other specified parts of digestive tract; Z98.84 Bariatric surgery status; Z79.899 Other long term (current) drug therapy
CPT/HCPCS: 49320; J2250; J0330; J2710; J0690; J2001; J3010; J1885; J2704; J1170

== ENCOUNTER → 2023-10-29 | Outpatient (CLI) | payer MEDICARE ==
--- NOTE | 2023-10-29 17:10 | P.BASOAP ---
Subjective Progress Note Date: 10/29/23 She had moderate scarring from pouch. She is continuing with her weight loss. Recommend continuing well. She has erythema of the left hand. Assessment/Plan Plan: Date: Initial Weight: Initial BMI: Current Weight: Current BMI: Type of Surgery: Total Volume in Band: Previous Volume: Volume Removed: Volume Added: Band Size:
[2023-10-30 12:25] VITALS: BP 116/74; PULSE 67; TEMP 97.6; BMI 44.9
== END ==
LOC: BARWHC3 14:45
PROVIDERS: ATTEND Surgery Plastic and Reconstructive Surgery
DX: E66.01 Morbid (severe) obesity due to excess calories (principal); Z53.9 Procedure and treatment not carried out, unspecified reason
CPT/HCPCS: 99211

== ENCOUNTER → 2024-03-18 | Outpatient (CLI) | payer MEDICARE | END | disposition home or self-care (01) | LOC: LABWHC1 10:50 | DX: I48.0 Paroxysmal atrial fibrillation (principal); G47.39 Other sleep apnea; D51.9 Vitamin B12 deficiency anemia, unspecified; I69.811 Memory deficit following other cerebrovascular disease; Z98.84 Bariatric surgery status; E55.9 Vitamin D deficiency, unspecified; R73.9 Hyperglycemia, unspecified | CPT/HCPCS: 36415; 80053; 80061; 82306; 82607; 82746; 83036; 83540; 83550; 84255; 84425; 84443; 84590; 84630; 85025 ==

== ENCOUNTER → 2024-06-02 | Outpatient (CLI) | payer MEDICARE ==
--- NOTE | 2024-06-03 12:03 | MM ---
Reason for Exam: Screening (asymptomatic). Last screening mammogram was performed 12 month(s) ago. Patient History: Menarche at age 13. Patient has no children. Left ovary removed at age 67. Right ovary removed at age 67. Hysterectomy at age 67. Postmenopausal. 02/01/2021, Benign Core Biopsy on the right side. 01/28/2019, Benign Core Biopsy on the left side. Risk Values: Елена 5 year model risk: 3.2%. NCI Lifetime model risk: 8.3%. Prior Study Comparison: 08/06/2021 Right Diagnostic Mammogram, [facility]. 01/23/2022 Bilateral MG 3D screening mammo w/cad, [facility]. 05/08/2023 Bilateral MG 3D screening mammo w/cad, [facility]. Tissue Density: The breasts are almost entirely fatty. Findings: Analyzed By CAD. Left breast loop recorder present. Left breast biopsy clip present. Right breast: There is no suspicious group of microcalcifications or new suspicious mass. Left breast: There is no suspicious group of microcalcifications or new suspicious mass. Benign-appearing calcifications left breast. Overall Assessment: Benign, BI-RAD 2 Management: Screening Mammogram of both breasts in [address] [facility] will attempt to contact patient to return for supplemental views and ultrasound if indicated. Patient should continue monthly self-breast exams. A clinical breast exam by your physician is recommended on an annual basis. This exam should not preclude additional follow-up of suspicious palpable abnormalities. Note on Елена scores and lifetime risk: 1. A Елена score greater than 3% is considered moderate risk. If this is the case, consider specialist referral to assess eligibility for a risk reducing agent. 2. If overall lifetime risk for the development of breast cancer is 20% or higher, the patient may qualify for future screening with alternating mammogram and breast MRI. [facility], , 06/03/2024 11:59 AM. Electronically signed and approved by: Nguyễn Do DO
== END | disposition home or self-care (01) ==
LOC: RADMAMWWP 14:36
PROVIDERS: ATTEND Family Medicine
DX: Z12.31 Encounter for screening mammogram for malignant neoplasm of breast (principal); Z78.0 Asymptomatic menopausal state; Z90.722 Acquired absence of ovaries, bilateral
CPT/HCPCS: 77063; 77067